=== PATIENT | female | born 1990 | race Caucasian/White ===

== ENCOUNTER → 2025-07-02 | Outpatient (CLI) | payer OTHER, SELFPAY ==
[2025-07-02 15:13] LABS: Hematocrit 40.0 % (37-47); Hemoglobin 13.9 g/dL (12.0-15.0); Mean Corp Hgb Conc 34.8 g/dL (32-36); Mean Corpuscular Volume 94.6 fL (81-99); Mean Platelet Vol. 11.7 fl (6.2-12.0); Platelet Count 221 K/mm3 (150-450); RBC Distribution Width CV 12.2 % (11.6-14.6); RBC Distribution Width SD 42.3 fl (35.1-43.9); Red Blood Count 4.23 M/mm3 (4.2-5.4); White Blood Count 7.1 K/mm3 (4.4-11.0)
[2025-07-02 15:40] LABS: AST(SGOT) 19 U/L (<=31); Alanine Aminotransfer ALT/SGPT 18 U/L (<=34); Albumin, Serum 4.4 g/dL (3.5-5.0); Alkaline Phosphatase 84 U/L (35-104); Anion Gap 13 (5-15); BUN 9 mg/dL (4-19); BUN/Creat Ratio 12.7 RATIO (10-20); Calcium,Total 9.5 mg/dL (7.6-11.0); Carbon Dioxide 24.0 mmol/L (21.0-32.0); Chloride 103 mmol/L (98-108); Cholesterol 201 mg/dL (<=200); Globulin 3.1 g/dL (2.2-4.2); Glucose 77 mg/dL (70-99); Low Density Lipoprotein Calc. 104 mg/dL; Potassium 4.4 mmol/L (3.3-5.1); Triglycerides 252 mg/dL; Very Low Density Lipoprotein 50 mg/dL (5-40); Vitamin D,25 Hydroxy 36.8 ng/mL (30-100); cholesterol:hdl ratio screen 4.30
== END | disposition home or self-care (01) ==
LOC: MFPLAB 12:07
PROVIDERS: Visit Provider Family Medicine
DX: Z00.00 Encounter for general adult medical examination without abnormal findings (principal); Z13.1 Encounter for screening for diabetes mellitus; Z13.220 Encounter for screening for lipoid disorders; E66.811 Obesity, class 1
CPT/HCPCS: 36415; 80053; 80061; 82306; 83036; 84443; 85027

== ENCOUNTER 2025-08-11 10:42 | Emergency (ER) | payer OTHER, SELFPAY ==
[2025-08-11 10:44] VITALS: BP 134/78; PULSE 64; RESP 18; TEMP 37.1; O2SAT 97; BMI 31.1
[2025-08-11 10:48] VITALS: BP 134/78; PULSE 78; RESP 16; TEMP 37.1; O2SAT 99
[2025-08-11 12:42] LABS: HIV Nonreactive (Nonreactive); Hepatitis B Surface Antigen Nonreactive (Nonreactive); Hepatitis C Antibody Nonreactive (Nonreactive)
== END 2025-08-11 11:30 | disposition home or self-care (01) ==
LOC: ED 11:27
PROVIDERS: Emergency Provider Emergency Medicine; Visit Provider Emergency Medicine
DX: S61.233A Puncture wound without foreign body of left middle finger without damage to nail, initial encounter (principal); W46.1XXA Contact with contaminated hypodermic needle, initial encounter; Z77.21 Contact with and (suspected) exposure to potentially hazardous body fluids
CPT/HCPCS: 86703; 86706; 86803; 87340; 99282

== ENCOUNTER → 2025-09-02 | Outpatient (CLI) | payer OTHER, SELFPAY ==
[2025-09-07 20:08] LABS: HPV APTIMA, High Risk Positive (Negative); HPV Genotype 16, Aptima Negative (Negative); HPV Genotype 18,45 Aptima Negative (Negative)
== END | disposition home or self-care (01) ==
LOC: LABSPEC 11:51
PROVIDERS: Visit Provider Nurse Practitioner Women's Health
DX: Z11.3 Encounter for screening for infections with a predominantly sexual mode of transmission (principal)
CPT/HCPCS: 87624; 88175; G0145

== ENCOUNTER → 2025-09-24 | Outpatient (CLI) | payer OTHER, SELFPAY ==
--- NOTE | 2025-09-24 14:45 | BI_ITS ---
EXAM: SCRN MAMM (CAD)W/KALINA BILAT DATE: 09/24/2025 CLINICAL HISTORY: F, Age 34 y/o , SCREENING FOR BREAST CANCER No family history. TECHNIQUE: Procedure Code: Modality: MG Procedure: SCRN MAMM (CAD)W/KALINA BILAT COMPARISON: Prior exam(s) dated prior outside examination dated February 21, 2024.. FINDINGS: TISSUE DENSITY: The breasts are almost entirely fatty. Bilateral Breast Mammographic Findings: No significant masses, calcifications or other abnormalities are identified. There is a new 4.2 mm well-defined nodule in the central slightly lateral aspect of the left breast. This may represent a small cyst. Sonographic correlation recommended. BI/SCRN MAMM (CAD)W/KALINA BILAT IMPRESSION: 4.2 mm well-defined nodule in the central slightly lateral aspect of the left b reast. Sonographic correlation recommended. OVERALL FINAL ASSESSMENT BI-RADS 0: INCOMPLETE - NEED ADDITIONAL IMAGING EVALUATION. RECOMMENDATION: Ultrasound Recommended Additional Recommendation none A letter with findings and recommendations will be mailed to the patient. Reading Location: [place] [id number]
--- OUTSIDE RECORDS SUMMARY | 2025-09-24 18:14 | XMS RPT_ITS | CCD ---
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 09/02/25 History extended release (Wellbutrin XL) fluoxetine 10 mg capsule (Prozac) 10 mg PO QDAY 09/02/25 09/02/25 H istory norethindrone (contraceptive) 0.35 0.35 mg PO QDAY #84 tabs 5 09/02/25 Rx mg tablet Is last menstrual period known: Yes Last Menstrual Period: 08/24/25 Post menopausal: No Patient : No : No PFSH Medical History (Updated 09/02/25 @ 10:18 by Britney Cotto PEER SPECIALIST, PEER SPECIALIST-C) H/O lipoma H/O human papillomavirus infection Surgical History (Updated 09/02/25 @ 09:27 by Britney Cotto PEER SPECIALIST, PEER SPECIALIST-C) H/O unilateral salpingectomy Family History (Updated 09/02/25 @ 09:11 by Rosie Brand) Grandmother Cancer Maternal- Pancreatic Aunt Cancer Lung- Maternal Social History (Updated 09/02/25 @ 09:12 by Rosie Brand) current occupational status: employed current occupation: [employer] Smoking Status: Never smoker alcohol intake: never substance use type: does not use seatbelt use: always do you feel safe at home: Yes additional social history: History 1 Elective abortions Hx Para 0 Spontaneous abortions Hx # Term Pregnancies Ectopic pregnancies 1 Hx # Pregnancies Multiple births # of living children 0 HPI Encounter for routine gynecological examination Details: ELANA WITT is a 34 year old who presents for new patient annual exam. Prior exams at [facility]. Has had colp 2023 for abnormal pap, +HPV and biopsy benign. Works [employer]. Same sexual partner since last exam at [facility]. Long history of PCOS. Prior DIRECTOR OF REHABILITATION said [facility] best option for her. Shaves face daily. Working hard on diet and recently lost 30#. Last PAP: 2023 History of abnormal PAP: 2019 colp TALISHA 1; 2023 colp benign bx. + HPV Last mammogram: 2024 History of abnormal mammogram: benign lipoma Colon cancer screening: age 44 Other preventative health care screenings: [facility] Female Reproductive History Last Menstrual Period: 08/24/25 Cycle Length: 21-35 Questions: metrorrhagia: No, sexually active: Yes, dyspareunia: No and PCB: No ROS Const Constitutional: Reports weight loss; Denies fatigue or weight gain Cardio Card: Denies chest pain Resp Resp: Denies cough or dyspnea on exertion GI GI: Denies abdominal pain, bloating, change in stool character, constipation or vomiting : Reports as per HPI; Denies difficulty voiding, pelvic pain, urinary frequency, urinary incontinence, urinary urgency, vaginal discharge or vaginal pruritus Exam Const General: cooperative, healthy appearing, no acute distress and well developed Orientation: alert, oriented to person and oriented to place HENGA Head: normal to inspection Neck Neck: normal visual inspection Thyroid: thyroid normal Lymphatic: no lymphadenopathy noted Chest Breast inspection: normal inspection of the breasts and normal inspection of the axillae Breast palpation: normal palpation of the breasts, normal palpation of the axillae and no axillary lymphadenopathy Resp Effort Inspection: normal respiratory effort GI Palpation: soft, no masses and nontender Rectal Exam: deferred External Female Exam: normal external appearance and normal appearance of the urethra Urethra: normal appearance of the urethra and normal palpation Speculum Exam - Vagina: normal appearance of the vagina and normal vaginal discharge Speculum Exam - Cervix: normal appearance of the cervix Bimanual Exam- Vagina Uterus: normal bimanual exam, uterine size normal, uterine shape normal and non-tender Bimanual Exam- Adnexa, other: normal adnexae, no masses, normal and non-tender Pelvic Support: normal Skin Hair: other (hirsuti (more content not included)... Normal [facility] 36on 08-20-2025 36 LM for return call. Letter mailed Normal [facility] Urgent Care Visit Reporton 1 Urgent Care Visit Report [facility] [address], [address] [place] [address] OFFICE VISIT Date of Service: 08/17/25 MR#: [id number] Acct: [id number] Name: ELANA WITT Rep #: [id number] : 1990 Provider: SUMAYA Castañeda Age/Sex: 34/F Location[place] [facility] Status: Signed Intake Vital Signs 08/11/25 10:44 08/17/25 06:32 Height 5 ft 4.5 in BP 108/78 Blood Pressure Location Lt brachial Position Sitting Respiration 14 Pulse 88 Pulse Source Auscultation Temp 98.4 F Temp Source Oral Pulse Oximetry (%) 98 Oxygen Delivery Method room air Intake Visit Reasons: FU/[facility] Allergies bee venom protein (honey bee) (bees) Allergy (Verified 08/11/25 10:43) Swelling coconut Allergy (Verified 08/11/25 10:43) rash oseltamivir (From Tamiflu) Allergy (Verified 08/11/25 10:43) rash acetaminophen (From Percocet) Adverse Reaction (Verified 08/11/25 10:43) Nausea doxycycline Adverse Reaction (Verified 08/11/25 10:43) Nausea oxycodone (From Percocet) Adverse Reaction (Verified 08/11/25 10:43) Nausea PFSH Social History Smoking Status: Never smoker HPI HPI Details: ELANA WITT, is a 34 F who presents to the office today for initial evaluation at the [facility] status post blood-borne pathogen needlestick injury occurring on 08/11/2025 while at work she so states. 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 On date of injury patient reported [facility] ED were treated and released the same day after initial blood-borne pathogen lab work was drawn and she has returned to work without restrictions ever since. She notes needlestick injury site is essentially healed without further complaints though is unaware of her initial lab results. She is unsure if source patient had blood- borne pathogen lab work drawn yet. She notes hepatitis B series completed several. Last Td in April 2025. She notes no other complaints at this time. ROS Const Constitutional: No other (As above) Exam Const General: cooperative, healthy appearing and no acute distress Orientation: alert and awake Resp Effort Inspection: normal respiratory effort and able to speak in complete sentences Cardio Rate: regular rate Pulses: radial pulses present Skin General: no rashes or lesions noted Other: LMF DP puncture wound site well-healed with sequela Neuro General: patient alert and patient awake Cognition: normal cognition Speech: speech normal Extrem General: normal to inspection Psych Appearance: grossly normal Mental Status: mental status grossly normal Mood: congruent mood Affect: normal affect Speech and Movement: speech and movement normal Attitude: cooperative Coding Level of Care Code Off vis,new,level 2 Diagnoses Needle stick injury of finger Exposure to body fluid Z77.21 Assessment and Plan Assessment and Plan (1) Needle stick injury of finger: Status: Acute (2) Exposure to body fluid: Status: Acute Plan: Continue working without restrictions as noted on today's [employer]. 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 Follow-up with the [facility] to be determined. Patient states acknowledging understanding all the above. This note was generated with [employer] dictation software. It may contain incorrect words, spelling, and punctuation that were not noted in checking the note before signing. 08/17/25 0642 Date Dax Turner Signature: Date (if applicable) CC: Normal [facility] Emergency Department Summary on 08-11-2025 Emergency Department Summary [facility] Department [address] [place] [address] Emergency Department Summary 08/11/25 MR#: [id number] Acct: [id number] Name: ELANA WITT Rep #: [id number] : 1990 34 From: Jonathan Lorenzana MD PCP: Status:PRE ER Location: ED HPI History of Present Illness Chief Complaint: Occup Expose Detail of Chief Complaint: Blood exposure, needlestick distal radial volar side L long finger Informant: patient Onset/Context/Timing Onset: Today and Hours 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 When she went to throw away the needle she stuck herself. There is obvious needle puncture jadon left long finger as previously described. She has no other symptoms or complaints. Prior similar symptoms: No Recent Illness/Hospitalizatio n: No PFSH PFSH Home Medications ???Medication ???Instructions ???Recorded ???Last Taken ???Type norethindrone (contraceptive) 0.35 0.35 mg PO QDAY #84 tabs 5 Unknown Rx mg tablet itjcsrmc-jovpzbpjm-cwv rocort 3.5 3 drp otic (ear) Q4H 10 days #10 m L 08/03/25 Unknown Rx mg-10,000 unit/mL-1 % ear drops,susp Allergy/AdvReac Type Severity Reaction Status Date / Time bee venom protein (honey Allergy Swelling Verified 08/11/25 10:43 bee) (bees) coconut Allergy rash Verified 08/11/25 10:43 oseltamivir (From Tamiflu) Allergy rash Verified 08/11/25 10:43 acetaminophen (From Percocet) AdvReac Nausea Verified 08/11/25 10:43 doxycycline AdvReac Nausea Verified 08/11/25 10:43 oxycodone (From Percocet) AdvReac Nausea Verified 08/11/25 10:43 Social History Smoking Status: Never smoker ROS ROS ED Constitutional Constitutional ED: Denies chills, fever(s) or subjective Integumentary Reports other Details: Puncture wound left long finger Neurologic Neurologic: Denies paresthesias or weakness Hematologic/Lymphatic Hematologic/Lymphatic: Denies easy bleeding or easy bruising EXAM Physical Exam Const Vital Signs: 08/11/25 10:44 08/11/25 10:48 Temperature 98.7 F Temperature Source Oral Pulse Rate 64 Respiratory Rate 18 Respiratory Effort Normal Respiratory Pattern Normal Blood Pressure 134/78 H Blood Pressure Mean 96 Pulse Ox 97 Oxygen Delivery Method Room Air Positive well nourished and well developed General Appearance ED: well developed HEENT HEENT Narrative: Grossly within normal limits Eyes PERRL and EOMs intact bilaterally Resp normal respiratory effort Cardio regular rhythm Rate: regular rate Extremity Negative for normal to inspection Extremity Narrative: Puncture wound distal radial volar surface left long finger. There is no subungual hematoma. There is no neurovasc Otomize. Neuro oriented x3 and CN's II-XII intact bilaterally Sensorium / Orientation: alert Psych mental status grossly normal and thought process normal Skin Skin Narrative: Wound consistent with needlestick left finger MDM MDM MDM Narrative Medical decision making narrative: Patient with dirty needle closure. Exposure protocol initiated. Will need to follow-up with [facility]. Discharge Plan Triage Chief Complaint: Occup Expose ED Provider: Jonathan Lorenzana Dx/Rx/DC Orders Clinical Impression: Needle stick injury of finger, Elevated blood pressure reading without diagnosis of hypertension, Exposure to body fluid Instructions: ED Body Fluid Exposure Not ..., ED Hypertension, To Be Confirmed Prescriptions: No Action norethindrone (contraceptive) 0.35 mg tablet 0.35 mg PO QDAY Qty: 84 1RF Rx Instructions: start day 1 of menstrual cycle emzmeilm-dfrrvqzmg-ZR 3.5-10,000-1 mg/mL-unit/mL-% drops,suspension 3 drp otic (ear) Q4H 10 Days Qty: 10 0RF Rx Instructions: apply to (cotton) wick; replace wick every 24 hours Referrals: [facility]] - 3-5 Days Activity Restrictions/Additiona l Instructions: Will need to contact source and obtain blood for testing Print Language: St Helenian Disposition Disposition: Home, Self Care What to do if you have Problems For any increased pain, shortness of breath, bleeding, nausea or vomiting, chest pain, or any unexpected problems, contact your Primary Care Provider. Call [facility] ([phone]) or report to the closest Emergency Room. Call 911 if necessary. (more content not included)... Normal [facility] HIVon 08-11-2025 HIV Non-Reactive Normal Nonreactive [facility] Comment on above: Order Comment: Reaso n for Exam: Dirty needlestick Result Comment: Non- Reactive Reactive Repeatedly reactive samples must be confirmed according to CDC recommended confirmatory algorithms. The subresults for either HIVAG or AHIV can be used as an aid in the selection of the confirmation algorithm for reactive samples. Send out specimens with Reactive results to [facility] for confirmation. Order the HIV antibody detection and differentiation: [id number] Performed By: #### L 3890.6202, L3890.6301, L3890.6006, L3890.6102 #### [facility] [address] [place], [place], [id number] Hepatitis B Surface Antibody on 08-11-2025 HEP B Surf Ab REAC Normal [facility] Comment on above: Result Comment: <8.5 mIU/mL: Non-Reactive 8.5<= x <11.5 mIU/mL: Indeterminate >=11.5 mIU/mL: Reactive Non Reactive: Inconsistent with immunity less than <10 mIU/mL Reactive: Consistent with immunity greater than or equal to 10 mIU/mL Performed By: #### L 3890.6202, L3890.6301, L3890.6006, L3890.6102 #### [facility] [address] [place], [address] Hepatitis C Antibodyon 08-11 Hepatitis C Ab Non-Reactive Normal Nonreactive [facility] Comment on above: Order Comment: Reaso n for Exam: Dirty needlestick Result Comment: Reac tive: Presumptive evidence of antibodies to HCV. Follow CDC recommendations for supplemental testing. Non-Reactive: Antibodies to HCV were not detected; does not exclude the possibility of exposure to HCV Reactive Results are presumptive evidence of antibodies to HCV. Follow CDC recommendations for supplemental testing. Order confirmation testing: HCV Quant by PCR testing - HCVPCR #[id number] Non Reactive: < 0.8 Equivocal: >/= 0.8 to < 1.0 Reactive: >/= 1.0 The CDC requires that a reactive/equivocal HCV antibody result be sent out for confirmation. HCV Quant by PCR testing. Performed By: #### L 3890.6202, L3890.6301, L3890.6006, L3890.6102 #### [facility] [address] [place], [place], [address] L3890.6102on 08-11-2025 HEP B Surf Ag Non-Reactive Normal Nonreactive [facility] Comment on above: Order Comment: Reaso n for Exam: Dirty needlestick Result Comment: Reac tive: Presumptive evidence of HBV. Repeatedly reactive samples must be confirmed using a neutralization test ([facility] HBsAg Confirmatory Test) Non-Reactive: HBsAg not detected; does not exclude the possibility of exposure to HBV Performed By: #### L 3890.6202, L3890.6301, L3890.6006, L3890.6102 #### [facility] [address] [place], [place], [id number] Laboratory - Microbiology an d Antimicrobial susceptibilityOrdered By: Jonathan Lorenzana on 08-11-2025 HBV surface Ag Ql (S) Non-Reactive Nonreactive [facility] Comment on above: Reactive: Presumptiv e evidence of HBV. Repeatedly reactive samples must be confirmed using a neutralization test ([employer] HBsAg Confirmatory Test)Non-Reactive: HBsAg not detected; does not exclude the possibility of exposure to HBV No Panel InformationOrdered By: Jonathan Lorenzana on 08-11-2025 HIV (1&2) Antibody Non-Reactive Nonreactive [facility] Comment on above: Non-ReactiveReactive Repeatedly reactive samples must be confirmed according to CDC recommended confirmatory algorithms. The subresults for either HIVAG or AHIV can be used as an aid in the selection of the confirmation algorithm for reactive samples.Send out specimens with Reactive results to [facility] for confirmation.Order the HIV antibody detection and differentiation: #[id number] Serum hepatitis B virus surf tee antibody detectionOrdered By: Jonathan Lorenzana on 08-11-2025 HBV surface Ab Ql (S) [facility] Comment on above: <8.5 mIU/mL: Non-Monika ctive8.5<= x <11.5 mIU/mL: Indeterminate>=11.5 mIU/mL: Reactive Non Reactive: Inconsistent with immunity less than <10 mIU/mL Reactive: Consistent with immunity greater than or equal to 10 mIU/mL Anion gap in Serum or Plasma Ordered By: Jordan Benavides on 07-02-2025 Anion gap [Moles/Vol] 13 mmol/L 5-15 [facility] BUN/creatinine ratioOrdered By: Jordan Benavides on 07-02-2025 Urea nitrogen/Creatinine [Mass ratio] 12.7 mg/mg 10-20 [facility] Bilirubin, totalOrdered By: Jordan Benavides on 07-02-2025 Bilirubin [Mass/Vol] 0.67 mg/dL 0.00-1.30 [facility] CBC-Complete Blood Cnt No Di ffon 07-02-2025 Erythrocyte distribution width (RBC) [Ratio] 12.2 % Normal 11.6-14.6 [facility] Comment on above: Order Comment: Order Date: 07/02/25 Order Info: [id number] - CBC Performed By: #### L 500.4100, L500.4050, L501.9985, L100.0500, L501.9520 #### [facility] [address] [place], [address] Hematocrit (Bld) [Volume fraction] 40.0 % Normal 37-47 [facility] Comment on above: Order Comment: Order Date: 07/02/25 Order Info: [id number] - CBC Performed By: #### L 500.4100, L500.4050, L501.9985, L100.0500, L501.9520 #### [facility] [address] [place], [address] Hemoglobin (Bld) [Mass/Vol] 13.9 g/dL Normal 12.0-15.0 [facility] Comment on above: Order Comment: Order Date: 07/02/25 Order Info: [id number] - CBC Performed By: #### L 500.4100, L500.4050, L501.9985, L100.0500, L501.9520 #### [facility] [address] [place], [address] MCH (RBC) [Entitic mass] 32.9 pg High 27.0-32.0 [facility] Comment on above: Order Comment: Order Date: 07/02/25 Order Info: [id number] - CBC Performed By: #### L 500.4100, L500.4050, L501.9985, L100.0500, L501.9520 #### [facility] [address] [place], [address] MCHC (RBC) [Mass/Vol] 34.8 g/dL Normal 32-36 [facility] Comment on above: Order Comment: Order Date: 07/02/25 Order Info: [id number] - CBC Performed By: #### L 500.4100, L500.4050, L501.9985, L100.0500, L501.9520 #### [facility] [address] [place], [address] MCV (RBC) [Entitic vol] 94.6 fL Normal 81-99 [facility] Comment on above: Order Comment: Order Date: 07/02/25 Order Info: [id number] - CBC Performed By: #### L 500.4100, L500.4050, L501.9985, L100.0500, L501.9520 #### [facility] [address] [place], [address] Platelet mean volume (Bld) [Entitic vol] 11.7 fL Normal 6.2-12.0 [facility] Comment on above: Order Comment: Order Date: 07/02/25 Order Info: [id number] - CBC Performed By: #### L 500.4100, L500.4050, L501.9985, L100.0500, L501.9520 #### [facility] [address] [place], [address] Platelets (Bld) [#/Vol] 221 10*3/uL Normal 150-450 [facility] Comment on above: Order Comment: Order Date: 07/02/25 Order Info: [id number] - CBC Performed By: #### L 500.4100, L500.4050, L501.9985, L100.0500, L501.9520 #### [facility] [address] [place], [address] RBC (Bld) [#/Vol] 4.23 10*6/uL Normal 4.2-5.4 [facility] Comment on above: Order Comment: Order Date: 07/02/25 Order Info: [id number] - CBC Performed By: #### L 500.4100, L500.4050, L501.9985, L100.0500, L501.9520 #### [facility] [address] [place], [address] RDW SD 42.3 fl Normal 35.1-43.9 [facility] Comment on above: Order Comment: Order Date: 07/02/25 Order Info: [id number] - CBC Performed By: #### L 500.4100, L500.4050, L501.9985, L100.0500, L501.9520 #### [facility] [address] [place], [address] WBC (Bld) [#/Vol] 7.1 10*3/uL Normal 4.4-11.0 [facility] Comment on above: Order Comment: Order Date: 07/02/25 Order Info: [id number] - CBC Performed By: #### L 500.4100, L500.4050, L501.9985, L100.0500, L501.9520 #### [facility] [address] [place], [address] Calculated very low density lipoprotein (VLDL) cholesterol measurementOrdered By: Jordan Benavides on 07-02-2025 Calculated very low density lipoprotein (VLDL) cholesterol measurement 50 mg/dL High 5-40 [facility] Carbon dioxide, total [Moles /volume] in Central venous bloodOrdered By: Jordan Benavides on 07-02-2025 CO2 [Moles/Vol] 24.0 mmol/L 21.0-32.0 [facility] Chloride assayOrdered By: Radha Benavides on 07-02-2025 Chloride [Moles/Vol] 103 mmol/L 98-108 [facility] Comprehensive Metabolic Prof ilon 07-02-2025 Albumin [Mass/Vol] 4.4 g/dL Normal 3.5-5.0 [facility] Comment on above: Order Comment: Order Date: 07/02/25 Order Info: [id number] - CMP Order Info: [id number] - LIPID Order Info: [id number] - TSH Performed By: #### L 500.4100, L500.4050, L501.9985, L100.0500, L501.9520 #### [facility] [address] [place], [address] Albumin/Globulin [Mass ratio] 1.4 {ratio} Normal 0.9-2.4 [facility] Comment on above: Order Comment: Order Date: 07/02/25 Order Info: [id number] - CMP Order Info: [id number] - LIPID Order Info: [id number] - TSH Performed By: #### L 500.4100, L500.4050, L501.9985, L100.0500, L501.9520 #### [facility] [address] [place], [address] ALK PHOS 84 U/L Normal 35-104 [facility] Comment on above: Order Comment: Order Date: 07/02/25 Order Info: [id number] - CMP Order Info: [id number] - LIPID Order Info: [id number] - TSH Performed By: #### L 500.4100, L500.4050, L501.9985, L100.0500, L501.9520 #### [facility] [address] [place], [address] ALT [Catalytic activity/Vol] 18 U/L Normal <=34 [facility] Comment on above: Order Comment: Order Date: 07/02/25 Order Info: [id number] - CMP Order Info: - LIPID Order Info: [id number] - TSH Performed By: #### L 500.4100, L500.4050, L501.9985, L100.0500, L501.9520 #### [facility] [address] [place], [address] AST [Catalytic activity/Vol] 19 U/L Normal <=31 [facility] Comment on above: Order Comment: Order Date: 07/02/25 Order Info: [id number] - CMP Order Info: - LIPID Order Info: [id number] - TSH Performed By: #### L 500.4100, L500.4050, L501.9985, L100.0500, L501.9520 #### [facility] [address] [place], [address] Bilirubin [Mass/Vol] 0.67 mg/dL Normal 0.00-1.30 [facility] Comment on above: Order Comment: Order Date: 07/02/25 Order Info: [id number] - CMP Order Info: - LIPID Order Info: [id number] - TSH Performed By: #### L 500.4100, L500.4050, L501.9985, L100.0500, L501.9520 #### [facility] [facility] [address] [place], [address] BUN/CRE 12.7 RATIO Normal 10-20 [facility] Comment on above: Order Comment: Order Date: 07/02/25 Order Info: 07 - CMP Order Info: - LIPID Order Info: [id number] - TSH Performed By: #### L 500.4100, L500.4050, L501.9985, L100.0500, L501.9520 #### [facility] [address] [place], [address] Calcium [Mass/Vol] 9.5 mg/dL Normal 7.6-11.0 [facility] Comment on above: Order Comment: Order Date: 07/02/25 Order Info: [id number] - CMP Order Info: - LIPID Order Info: [id number] - TSH Performed By: #### L 500.4100, L500.4050, L501.9985, L100.0500, L501.9520 #### [facility] [address] [place], [address] Chloride [Moles/Vol] 103 mmol/L Normal 98-108 [facility] Comment on above: Order Comment: Order Date: 07/02/25 Order Info: [id number] - CMP Order Info: - LIPID Order Info: [id number] - TSH Performed By: #### L 500.4100, L500.4050, L501.9985, L100.0500, L501.9520 #### [facility] [address] [place], [address] CO2 [Moles/Vol] 24.0 mmol/L Normal 21.0-32.0 [facility] Comment on above: Order Comment: Order Date: 07/02/25 Order Info: [id number] - CMP Order Info: - LIPID Order Info: [id number] - TSH Performed By: #### L 500.4100, L500.4050, L501.9985, L100.0500, L501.9520 #### [facility] [address] [place], [address] Creatinine [Mass/Vol] 0.73 mg/dL Normal 0.70-1.20 [facility] Comment on above: Order Comment: Order Date: 07/02/25 Order Info: [id number] - CMP Order Info: [id number] - LIPID Order Info: [id number] - TSH Performed By: #### L 500.4100, L500.4050, L501.9985, L100.0500, L501.9520 #### [facility] [address] [place], [place], [address] GAP 13 Normal 5-15 [facility] Comment on above: Order Comment: Order Date: 07/02/25 Order Info: 785- - CMP Order Info: [id number] - LIPID Order Info: 3 - TSH Performed By: #### L 500.4100, L500.4050, L501.9985, L100.0500, L501.9520 #### [facility] [address] [place], [place], [address] GFR/1.73 sq M.predicted among non-blacks MDRD (S/P/Bld) [Vol rate/Area] 109 mL/min/{1.73_m2} Normal >60 [facility] Comment on above: Order Comment: Order Date: 07/02/25 Order Info: [id number] - CMP Order Info: - LIPID Order Info: [id number] - TSH Result Comment: mL/m in/1.73m2 CKD-EPI Creatinine Equation (2020) Performed By: #### L 500.4100, L500.4050, L501.9985, L100.0500, L501.9520 #### [facility] [address] [place], [address] Globulin (S) [Mass/Vol] 3.1 g/dL Normal 2.2-4.2 [facility] Comment on above: Order Comment: Order Date: 07/02/25 Order Info: [id number] - CMP Order Info: [id number] - LIPID Order Info: [id number] - TSH Performed By: #### L 500.4100, L500.4050, L501.9985, L100.0500, L501.9520 #### [facility] [address] [place], [place], [address] Glucose [Mass/Vol] 77 mg/dL Normal 70-99 [facility] Comment on above: Order Comment: Order Date: 07/02/25 Order Info: 785- - CMP Order Info: - LIPID Order Info: [id number] - TSH Performed By: #### L 500.4100, L500.4050, L501.9985, L100.0500, L501.9520 #### [facility] [address] [place], [address] Potassium [Moles/Vol] 4.4 mmol/L Normal 3.3-5.1 [facility] Comment on above: Order Comment: Order Date: 07/02/25 Order Info: [id number] - CMP Order Info: [id number] - LIPID Order Info: 3 - TSH Performed By: #### L 500.4100, L500.4050, L501.9985, L100.0500, L501.9520 #### [facility] [address] [place], [address] Sodium [Moles/Vol] 139 mmol/L Normal 133-145 [facility] Comment on above: Order Comment: Order Date: 07/02/25 Order Info: [id number] - CMP Order Info: [id number] - LIPID Order Info: [id number] - TSH Performed By: #### L 500.4100, L500.4050, L501.9985, L100.0500, L501.9520 #### [facility] [address] [place], [address] T PROT 7.4 g/dL Normal 5.9-8.4 [facility] Comment on above: Order Comment: Order Date: 07/02/25 Order Info: [id number] - CMP Order Info: [id number] - LIPID Order Info: [id number] - TSH Performed By: #### L 500.4100, L500.4050, L501.9985, L100.0500, L501.9520 #### [facility] [address] [place], [address] Urea nitrogen [Mass/Vol] 9 mg/dL Normal 4-19 [facility] Comment on above: Order Comment: Order Date: 07/02/25 Order Info: [id number] - CMP Order Info: [id number] - LIPID Order Info: [id number] - TSH Performed By: #### L 500.4100, L500.4050, L501.9985, L100.0500, L501.9520 #### [facility] [address] [place], [place], [address] Erythrocyte distribution wid th ratioOrdered By: Jordan Benavides on 07-02-2025 Erythrocyte distribution width (RBC) [Ratio] 12.2 % 11.6-14.6 [facility] Erythrocyte distribution wid th standard deviationOrdered By: Jordan Benavides on 07-02-2025 Erythrocyte distribution width (RBC) [Ratio] 42.3 fl 35.1-43.9 [facility] Glomerular filtration rate ( GFR) estimation/1.73 sq m using serum, plasma, or whole bOrdered By: Jordan Benavides on 07-02-2025 GFR/1.73 sq M.predicted among non-blacks MDRD (S/P/Bld) [Vol rate/Area] 109 mL/min/{1.73_m2} >60 [facility] Comment on above: mL/min/1.73m2 CKD-EP I Creatinine Equation (2020) Hematocrit Auto (Bld) [Volum e fraction]Ordered By: Jordan Benavides on 07-02-2025 Hematocrit (Bld) [Volume fraction] 40.0 % 37-47 [facility] Hemoglobin A1con 07-02-2025 HbA1c (Bld) [Mass fraction] 5.5 % Normal <=5.6 [facility] Comment on above: Order Comment: Order Date: 07/02/25Order Info: [id number] - A1C Result Comment: Norm al < 5.7 % Prediabetic 5.7 - 6.4 % Diabetic >or= 6.5 % Please note range changes. Performed By: #### L 500.4100, L500.4050, L501.9985, L100.0500, L501.9520 ####[facility] [address] [place], [place], [id number] Hemoglobin A1c percentageOrd ered By: Jordan Benavides on 07-02-2025 HbA1c (Bld) [Mass fraction] 5.5 % <5.7 [facility] Comment on above: Normal < 5.7 % Predi abetic 5.7 - 6.4 % Diabetic >or= 6.5 % Please note range changes. Hemoglobin measurementOrdere d By: Jordan Benavides on 07-02-2025 Hemoglobin (Bld) [Mass/Vol] 13.9 g/dL 12.0-15.0 [facility] LDL calc ser/plasOrdered By: Jordan Benavides on 07-02-2025 Cholesterol in LDL [Mass/Vol] 104 mg/dL [facility] Comment on above: Qsaorbzrif=077-472 m g/dL & Higher Leoz=605 mg/dL or greaterFriedwald Equation for LDL-C Laboratory - Chemistry and C hemistry - challengeOrdered By: Jordan Benavides on 07-02-2025 AST [Catalytic activity/Vol] 19 U/L <32 [facility] Lipid Profileon 07-02-2025 CHOL:HDL 4.30 Normal [facility] Comment on above: Order Comment: Order Date: 07/02/25Order Info: [id number] - CMPOrder Info: [id number] - LIPIDOrder Info: [id number] - TSH Performed By: #### L 500.4100, L500.4050, L501.9985, L100.0500, L501.9520 ####[facility] [address] [place], [place], [phone] Cholesterol [Mass/Vol] 201 mg/dL Normal <=200 [facility] Comment on above: Order Comment: Order Date: 07/02/25Order Info: [id number] - CMPOrder Info: [id number] - LIPIDOrder Info: [id number] - TSH Result Comment: Chol esterol level, Desirable <200 mg/dL Borderline high cholesterol 200-239 mg/dL High cholesterol >=240 mg/dL Recommendations of the NCEP Adult Treatment Panel for the following risk-cutoff thresholds for the [place] population. Performed By: #### L 500.4100, L500.4050, L501.9985, L100.0500, L501.9520 ####[facility] [address] [place], [address] Cholesterol in HDL [Mass/Vol] 47 mg/dL Normal [facility] Comment on above: Order Comment: Order Date: 07/02/25Order Info: [id number] - CMPOrder Info: [id number] - LIPIDOrder Info: 3 - TSH Result Comment: Kayla onal Cholesterol Education Program (NCEP) guidelines: <40 mg/dL: Low HDL-cholesterol (major risk factor for CHD) >= 60 mg/dL: High HDL-cholesterol (negative risk factor for CHD) HDL-cholesterol is affected by a number of factors, e.g. smoking, exercise, hormones, sex and age. Performed By: #### L 500.4100, L500.4050, L501.9985, L100.0500, L501.9520 ####[facility] [address] [place], [address] Cholesterol in LDL [Mass/Vol] 104 mg/dL Normal [facility] Comment on above: Order Comment: Order Date: 07/02/25Order Info: [id number] - CMPOrder Info: [id number] - LIPIDOrder Info: [id number] - TSH Result Comment: Bord uvlctr=158-100 mg/dL Higher Hjvc=336 mg/dL or greater Friedwald Equation for LDL-C Performed By: #### L 500.4100, L500.4050, L501.9985, L100.0500, L501.9520 ####[facility] [address] [place], [address] Cholesterol in VLDL [Mass/Vol] 50 mg/dL High 5-40 [facility] Comment on above: Order Comment: Order Date: 07/02/25Order Info: [id number]- - CMPOrder Info: [id number] - LIPIDOrder Info: 63 - TSH Performed By: #### L 500.4100, L500.4050, L501.9985, L100.0500, L501.9520 ####[facility] [address] [place], [place], [address] Triglyceride [Mass/Vol] 252 mg/dL High [facility] Comment on above: Order Comment: Order Date: 07/02/25Order Info: [id number] - CMPOrder Info: [id number] - LIPIDOrder Info: [id number] - TSH Result Comment: The drugs N-Acetylcysteine and Metamizole may falsely depress this assay. Normal range: <150 mg/dL Borderline High: 150-199 mg/dL High: 200-499 mg/dL Very High: >500 mg/dL Performed By: #### L 500.4100, L500.4050, L501.9985, L100.0500, L501.9520 ####[facility] [address] [place], [place], [id number] MCV (mean corpuscular volume ) determinationOrdered By: Jordan Benavides on 07-02-2025 MCV (RBC) [Entitic vol] 94.6 fL 81-99 [facility] Mean corpuscular hemoglobin (MCH) determinationOrdered By: Jordan Benavides on 07-02-2025 MCH (RBC) [Entitic mass] 32.9 pg High 27.0-32.0 [facility] Mean corpuscular hemoglobin concentration (MCHC) determinationOrdered By: Jordan Benavides on 07-02-2025 MCHC (RBC) [Mass/Vol] 34.8 g/dL 32-36 [facility] Mean platelet volume determi nationOrdered By: Jordan Benavides on 07-02-2025 Platelet mean volume (Bld) [Entitic vol] 11.7 fL 6.2-12.0 [facility] Platelet countOrdered By: Radha Benavides on 07-02-2025 Platelets (Bld) [#/Vol] 221 10*3/uL 150-450 [facility] Potassium measurement (mass/ volume)Ordered By: Jordan Benavides on 07-02-2025 Potassium (Unsp spec) [Mass/Vol] 4.4 mmol/L 3.3-5.1 [facility] RBC Auto (Bld) [#/Vol]Ordere d By: Jordan Benavides on 07-02-2025 RBC (Bld) [#/Vol] 4.23 10*6/uL 4.2-5.4 [facility] Screening total cholesterol/ high density lipoprotein (HDL) cholesterol ratioOrdered By: Jordan Benavides on 07-02-2025 Cholesterol.total/Cristal sterol in HDL [Mass ratio] 4.30 {ratio} [facility] Serum creatinine measurement (mass/volume)Ordered By: Jordan Benavides on 07-02-2025 Creatinine [Mass/Vol] 0.73 mg/dL 0.70-1.20 [facility] Serum globulin measurementOr dered By: Jordan Benavides on 07-02-2025 Globulin (S) [Mass/Vol] 3.1 g/dL 2.2-4.2 [facility] Serum glucose measurement (m ass/volume)Ordered By: Jordan Benavides on 07-02-2025 Glucose [Mass/Vol] 77 mg/dL 70-99 [facility] Serum or plasma alanine kaiser otransferase (ALT) measurementOrdered By: Jordan Benavides on 07-02-2025 ALT [Catalytic activity/Vol] 18 U/L <35 [facility] Serum or plasma albumin hi urement (mass/volume)Ordered By: Jordan Benavides on 07-02-2025 Albumin [Mass/Vol] 4.4 g/dL 3.5-5.0 [facility] Serum or plasma albumin/glob ulin mass ratioOrdered By: Jordan Benavides on 07-02-2025 Albumin/Globulin [Mass ratio] 1.4 {ratio} 0.9-2.4 [facility] Serum or plasma alkaline latonia sphatase measurementOrdered By: Jordan Benavides on 07-02-2025 ALP [Catalytic activity/Vol] 84 U/L 35-104 [facility] Serum or plasma calcium hi urement (mass/volume)Ordered By: Jordan Benavides on 07-02-2025 Calcium [Mass/Vol] 9.5 mg/dL 7.6-11.0 [facility] Serum or plasma cholesterol in HDL measurement (mass/volume)Ordered By: Jordan Benavides on 07-02-2025 Cholesterol in HDL [Mass/Vol] 47 mg/dL >40 [facility] Comment on above: National Cholesterol Education Program (NCEP) guidelines:<40 mg/dL: Low HDL-cholesterol (major risk factor for CHD)>= 60 mg/dL: High HDL-cholesterol (negative risk factor for CHD)HDL-cholesterol is affected by a number of factors, e.g. smoking, exercise, hormones, sex and age. Serum or plasma cholesterol measurement (mass/volume)Ordered By: Jordan Benavides on 07-02-2025 Cholesterol [Mass/Vol] 201 mg/dL <201 [facility] Comment on above: Cholesterol level, D esirable <200 mg/dLBorderline high cholesterol 200-239 mg/dLHigh cholesterol >=240 mg/dLRecommendations of the NCEP Adult Treatment Panel for the following risk-cutoff thresholds for the [place] population. Serum or plasma urea nitroge n measurement (mass/volume)Ordered By: Jordan Benavides on 07-02-2025 Urea nitrogen [Mass/Vol] 9 mg/dL 4-19 [facility] Sodium levelOrdered By: Alina Benavides on 07-02-2025 Sodium [Moles/Vol] 139 mmol/L 133-145 [facility] TSH DL <= 0.005 mIU/L QnOrde red By: Jordan Benavides on 07-02-2025 TSH Qn 1.010 uIU/mL 0.300-4.200 [facility] Thyroid Stim Hormone (TSH)on 07-02-2025 TSH 1.010 uIU/mL Normal 0.300-4.200 [facility] Comment on above: Order Comment: Order Date: 07/02/25Order Info: [id number] - CMPOrder Info: [id number] - LIPIDOrder Info: [id number] - TSH Performed By: #### L 500.4100, L500.4050, L501.9985, L100.0500, L501.9520 ####[facility] [address] [place], [place], [phone] Total proteinOrdered By: Daja Benavides on 07-02-2025 Protein [Mass/Vol] 7.4 g/dL 5.9-8.4 [facility] Triglycerides measurementOrd ered By: Jordan Benavides on 07-02-2025 Triglyceride [Mass/Vol] 252 mg/dL High <199 [facility] Comment on above: The drugs N-Acetylcy steine and Metamizole may falsely depress this assay. Normal range: <150 mg/dLBorderline High: 150-199 mg/dLHigh: 200-499 mg/dLVery High: >500 mg/dL Vitamin D,25 Hydroxyon 07-02 Vitamin D 25-OH 36.8 ng/mL Normal 30-100 [facility] Comment on above: Order Comment: Order Date: 07/02/25 Order Info: [id number] - CMP Order Info: [id number] - LIPID Order Info: [id number] - TSH Result Comment: Zaria min D Status Deficiency: <20 ng/mL (50nmol/L) Insufficiency: 20-30 ng/mL (50-75 nmol/L) Sufficiency: 30-100 ng/mL (75-250 nmol/L) Toxicity: >100 ng/mL (>250 nmol/L) Performed By: #### L 506.1001 #### [facility] [address] [place], [address] White blood cell (WBC) count Ordered By: Jordan Benavides on 07-02-2025 WBC (Bld) [#/Vol] 7.1 10*3/uL 4.4-11.0 [facility] 36on 06-12-2025 36 LM for return call. Normal [facility] 36on 05-11-2025 36 LM for return call. Please assist with scheduling her annual exam. Thank you Normal [facility] 36 ----- Message from Camelia Edwards sent at 04/03/2025 1:51 PM EDT ----- Regarding: appt Annual scheduled? Send letter Normal [facility] Progress Noteon 04-26-2025 Progress Note PPD read 0mm. Normal [facility] Progress Noteon 04-24-2025 Progress Note #2 TB skin test give n to left inner forearm. Normal [facility] Mumps Antibody,IgGon 025 MUMPS Ab, IgG 10.5 AU/mL Low Immune >10.9 [facility] Comment on above: Result Comment: A se cond sample should be collected and tested no less than 2-4 weeks. Negative <9.0 Equivocal 9.0 - 10.9 Positive >10.9 A positive result generally indicates past exposure to Mumps virus or previous vaccination. Performed By: #### L 3400.1750, L3100.3400, L509.4006 ####[facility] [address] [place], [address] [facility] EMP Rubeola Titeron 07-0 RUBEOLA Ab, IgG 84.6 AU/mL High Immune >16.4 [facility] Comment on above: Result Comment: Nega tive <13.5 Equivocal 13.5 - 16.4 Positive >16.4 Presence of antibodies to Rubeola is presumptive evidence of immunity except when acute infection is suspected. Performed at: [address] [id number] Lard Renderer: Ricardo Pereira PhD, Phone: [phone] Performed By: #### L 3400.1750, L3100.3400, L509.4006 ####[facility] [address] [place], [address] L509.4006on 04-22-2025 Rubella IgG REAC Normal Nonreactive [facility] Comment on above: Result Comment: Anti body Result: Interpretation Non-Reactive: Non-Immune Reactive: Immune The following results were obtained with the [employer] Rubella IgG assay. Results from assays of other manufacturers cannot be used interchangeably. Performed By: #### L 3400.1750, L3100.3400, L509.4006 ####[facility] [address] [place], [address] Serum measles virus IgG anti body assay (units/volume)Ordered By: [employer] [facility] on 04-22-2025 MeV IgG Qn (S) 84.6 AU/mL High Immune >16.4 [facility] Comment on above: Negative <13.5 Equiv ocal 13.5 - 16.4 Positive >16.4Presence of antibodies to Rubeola is presumptive evidenceof immunity except when acute infection is suspected.Performed at: - [facility] [address] [place], [place] [id number] Director: Ricardo Pereira PhD, Phone: [phone] Serum mumps virus IgG antibo dy assay (units/volume)Ordered By: [employer] [facility] on 04-22-2025 MuV IgG Qn (S) 10.5 AU/mL Low Immune >10.9 [facility] Comment on above: A second sample shou ld be collected and tested no less than2-4 weeks. Negative <9.0 Equivocal 9.0 - 10.9 Positive >10.9A positive result generally indicates past exposure toMumps virus or previous vaccination. Progress Noteon 04-14-2025 Progress Note TB test read is negative on right forearm. 0 mm induration. No skin reaction noted. Form was filled out and returned to patient. Justine Sal APRN - [employer] [facility] 3604-03-2025 36 LM for return call. Please assist with scheduling her annual exam. Thanks [facility] 36 ----- Message from Camelia Edwards sent at 02/11/2025 11:53 AM EDT ----- Regarding: annual Annual/pap 02/25 [facility] 2903-29-2025 29 Addended by: RAMANDEEP DOLAN on: 03/29/2025 04:48 PM Modules accepted: Orders [facility] 3603-28-2025 36 Pt is requesting annual lab work be order before her visit in june of this year. [facility] 37on 01-28-2025 37 Start: Clobetasol Ointment- Apply to affected areas on the right hand twice daily x 2 weeks. Stop using when clear. Repeat as needed for flares. Do not use on face, armpits, groin. Sunscreen- Keep the area protected from the sun. Appropriate skin care is critical. Gentle non-soap cleansers should be utilized. The liberal use of bland emollients is essential. These products should be fragrance and dye free. Use gentle, fragrance free, dye free soaps, cleanser (Aquaphor, Aveeno, CeraVe, Cetaphil, Eucerin, La Yannick Posay, Neutrogena, Vaseline, Vanicream), and laundry products (usually found in a white bottle or box). Dry skin care and importance of liberal emollient use reviewed. Sunscreen Use & Sun Safety It is recommended a water-resistant, broad-spectrum sunscreen with SPF of at least 15 to 30. Apply sunscreen to all exposed skin 30 minutes before sun exposure, and then every 2 hours. Apply sooner if sweating or coming out of pool/water. Using the proper amount of sunscreen in important. An adult should use about 1-1.5 oz of sunscreen to the entire body, about 2-3 tablespoons per application. Use a lip balm with SPF 30 or higher to protect the lips from sun damage. Limit time in the sun, especially between 10 AM and 2 PM when the sun?s rays are the strongest. Clothing labeled with a UPF (ultra-lisbeth protection factor) rating indicates that it?s protective against UV rays. Also, wear wide-brimmed hats, and sunglasses for sun protection. The nature of sun-induced photo-aging and skin cancers was discussed. Sun avoidance, protective clothing, and the use of Broad spectrum (UVA and UVB) minimum 30-SPF sunscreens is advised. Apply sunscreen 30 minutes prior to sun exposure, and reapply every 2 hours and as needed after swimming or sweating. Observe closely for skin damage/changes, and call if such occurs. Normal [facility] Office Visiton 01-28-2025 Follow-up visit [id number] Catrachita Witt 1990 F Date Provider Department Center 01/28/2025 [id number]-OZREZINA KIRBY [facility] None Family History Problem Relation Age of Onset Diabetes Mother Heart disease Mother Mental illness Mother High Blood Pressure Father Alcohol abuse Father Diabetes Father No Known Problems Sister No Known Problems Brother Cancer Maternal Grandmother Comments: gallbladder Other Maternal Grandfather Comments: Dementia Other Paternal Grandmother Comments: glaucoma, URI Depression Paternal Grandmother Diabetes Paternal Grandmother Other Paternal Grandfather Comments: COPD Diabetes Father's Sister No Known Problems Other Lung cancer Mother's Sister Comments: smoker Family Status - Relation Status Age at Mother Alive Father Alive Sister Alive Brother Alive Maternal Grandmother Maternal Grandfather Alive Paternal Grandmother Alive Paternal Grandfather Father's Sister Alive Other Alive Other Mother's Sister Alive Level of Service:70527 LA OFFICE/OUTPATIENT ESTABLISHED LOW MDM 20 MIN Reason for Visit and Comments: Rash [609322] - 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 female who presents for evaluation of rash. Patient has seen a handcrew foreman in the past. C/o-rash located on the Right Hand x Dec 02. Rash started on after drinking an energy drink with coconut in it- has an allergy. The itching has improved. Admits blistering in the area. Patient states the rash was itchy in the past. Denies itching, burning, pain. Denies spreading. Denies new personal products. Denies new medications/supplement s or changes in medications/supplement s size, shape, color. Denies recent illness/fever. Denies anyone in the same house with similar rash. Denies daily allergy medication. Denies personal or family hx of eczema or psoriasis. Admits allergies and sensitive skin. Admits previous treatment with Betamethasone, Triamcinolone Ointment and Keflex. She took a medrol dose pack for Sciatica, unsure if this helped. Currently using Hempz wash and lotion and All for sensitive skin laundry detergent. Are you , trying to become or ? No History of pacemaker/ defibrillator? No History of HIV/ Hep C? No Allergies to Lidocaine, Epinephrine, Latex or Adhesive? No REVIEW OF SYSTEMS: General/Constitutional Feels well; denies h/o fatigue, weight change, night sweats, fevers or chills. Lymphatic Denies swollen lymph nodes. Dermatologic As per HPI; denies new rashes, itching, hair loss, skin or nail changes. There were no vitals filed for this visit. GENERAL APPEARANCE:?Alert & oriented x3, pleasant. Well developed, well nourished. PSYCH: appropriate mood and affect 1. Post inflammatory hypopigmentation Right Hand - Posterior []Chronic [x]Acute []Stable [x]Flaring/Exacerbatio n Reviewed patient photos. Photos consistent with suspected contact dermatitis. Now resolved. Education provided that the light areas at sites of previous involvement are known as post inflammatory hypopigmentation. The discoloration will continue to resolve over time; however, advised that it can take many months and if patient continues to develop new areas of involvement, the discoloration may persist. Start: Clobetasol Ointment- Apply to affected areas on the right hand twice daily x 2 weeks. Stop using when clear. Repeat as needed for flares. Do not use on face, armpits, groin. Related Medications clobetasol (Temovate) 0.05 % ointment Apply to affected areas on the right hand BID x 2 weeks. Stop using when clear. Repeat as needed for flares. Do not use on face, armpits, groin. 2. Rash Related Procedures [facility] Dermatology Orders Placed This Encounter Medications clobetasol (Temovate) 0.05 % ointment Sig: Apply to affected areas on the right hand BID x 2 weeks. Stop using when clear. Repeat as needed for flares. Do not use on face, armpits, groin. Dispense: 60 g Refill: 0 Follow up if symptoms worsen or fail to improve. Zina Echols PA-C 01/28/25 1:11 PM REFERRING MD: [id number] / [place] [address] [facility] Office Visiton 01-02-2025 Follow-up visit [id number] Catrachita Witt 1990 F Date Provider Department Center 01/02/2025 MARÍA BARLOW [facility] Family History Problem Relation Age of Onset Diabetes Mother Heart disease Mother Mental illness Mother High Blood Pressure Father Alcohol abuse Father Diabetes Father No Known Problems Sister No Known Problems Brother Cancer Maternal Grandmother Comments: gallbladder Other Maternal Grandfather Comments: Dementia Other Paternal Grandmother Comments: glaucoma, URI Depression Paternal Grandmother Diabetes Paternal Grandmother Other Paternal Grandfather Comments: COPD Diabetes Father's Sister No Known Problems Other Lung cancer Mother's Sister Comments: smoker Family Status - Relation Status Age at Mother Alive Father Alive Sister Alive Brother Alive Maternal Grandmother Maternal Grandfather Alive Paternal Grandmother Alive Paternal Grandfather Father's Sister Alive Other Alive Other Mother's Sister Alive Level of Service:34247 LA OFFICE/OUTPATIENT ESTABLISHED MOD MDM 30 MIN Reason for Visit and Comments: Sciatica [346] Rash [964732] - Right hand, has used doxy, keflex, and kenalog cream. Normal [facility] Progress Noteon 01-02-2025 Progress Note . [facility] [address] [facility] [address] Dept: [phone] Dept Visit type: Established patient Reason for Visit: Sciatica and Rash (Right hand, has used doxy, keflex, and kenalog cream.) @PLANBEGINPHANTOM@ Assessment and Plan 1. Current mild episode of major depressive 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 (HCC) - buPROPion XL (Wellbutrin XL) 300 MG 24 hr tablet; Take 1 tablet (300 mg) by mouth every morning. Do not crush, chew, or split., Starting Sun01/02/2025, Until Sun07/01/2025, Normal - FLUoxetine (PROzac) 10 MG capsule; Take 1 capsule (10 mg) by mouth daily., Starting Sun01/02/2025, Until Sun07/01/2025, Normal 2. LELE (generalized anxiety disorder) - FLUoxetine (PROzac) 10 MG capsule; Take 1 capsule (10 mg) by mouth daily., Starting Sun01/02/2025, Until Sun07/01/2025, Normal 3. Rash - [facility] - betamethasone dipropionate (Diprosone) 0.05 % lotion; Apply topically 2 times daily as needed for irritation or rash., Starting Sun01/02/2025, Until Sun05/02/2025 at 2359, Normal 4. Sciatica, unspecified laterality - methylPREDNISolone (Medrol Dospak) 4 MG tablets; Take as directed on package., Normal No follow-ups on file. Subjective Anxiety Presents for follow-up visit. Patient reports no chest pain, confusion, decreased concentration, depressed mood, dizziness, irritability, malaise, nervous/anxious behavior, obsessions, palpitations, restlessness, shortness of breath or suicidal ideas. The quality of sleep is good. Nighttime awakenings: none. Review of Systems Constitutional: Negative for activity change, appetite change, chills, diaphoresis, fatigue, fever, irritability and unexpected weight change. HENT: Negative for sore throat and trouble swallowing. Respiratory: Negative for apnea, cough, choking, chest tightness, shortness of breath, wheezing and stridor. Cardiovascular: Negative for chest pain, palpitations and leg swelling. Gastrointestinal: Negative for abdominal pain, constipation and diarrhea. Endocrine: Negative for cold intolerance, heat intolerance, polydipsia, polyphagia and polyuria. Genitourinary: Negative for frequency and urgency. Musculoskeletal: Positive for gait problem. Negative for neck pain and neck stiffness. States that she has been battling sciatica of her right leg for about 2 weeks Pain starts from lower back and radiates down to toes, pins and needles sensation No know trigger but does do heavy lifting at her job No cauda equina Supportive treatment with modest help Skin: Positive for rash. Negative for wound. Rash on dorsum of right hand S/p doxy (incomplete due to GI symptoms) and currently finishing keflex Topical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 Ordering Physician GABRIEL ROBLES Accession Number [id number] CPT4 Codes 27027 () Reason For Exam cough Report Clinical History: cough Comparison: None Technique: PA and lateral radiographs were obtained of the chest. Findings: The heart size and mediastinal contours are normal. Pulmonary vascularity is normal and there is no pneumothorax. The lungs are clear with no acute infiltrate or effusion. No displaced rib fractures seen. Impression: No acute consolidative process. Report Dictated on --- Final --- Dictating Physician: MD VERGARA JAMES Signed Date and Time: 12/08/2019 7:27 am Signed by: MD VERGARA JAMES Transcribed Date and Time: 12/08/2019 7:28 [facility] Work Phone: [facility], [facility] Incoming Radiology Results From [facility] - 12/08/2019 7:29 AM EST Patient Name: ELANA WITT ---Diagnostic Radiology--- Exam Date/Time 12/08/2019 07:16:39 EST Exam CR Chest PA/LAT Ordering Physician GABRIEL ROBLES Accession Number [id number] CPT4 Codes 68168 () Reason For Exam cough Report Clinical History: cough Comparison: None Technique: PA and lateral radiographs were obtained of the chest. Findings: The heart size and mediastinal contours are normal. Pulmonary vascularity is normal and there is no pneumothorax. The lungs are clear with no acute infiltrate or effusion. No displaced rib fractures seen. Impression: No acute consolidative process. Report Dictated on --- Final --- Dictating Physician: MD VERGARA JAMES Signed Date and Time: 12/08/2019 7:27 am Signed by: MD VERGARA JAMES Transcribed Date and Time: 12/08/2019 7:28 [facility] Work Phone: US Transvaginalon 02-04-2018 US Transvaginal Patient Name: ELANA GAMING Ultrasound Exam Date/Time 02/04/2018 17:19:27 EDT Exam US Transvaginal Ordering Physician HALEY DUPREE KRISTINA Accession Number [id number] CPT4 Codes 73659 () Reason For Exam Ectopic , unspecified location, unspecified whether intrauterine present; Pain, abdominal, RLQ; Abn uterine bleeing. Report TRANSVAGINAL ULTRASOUND OF THE PELVIS WITH DOPPLER AND SPECTRAL WAVEFORM ANALYSIS OF THE OVARIES IF THEY WERE VISUALIZED CLINICAL INDICATION: Ectopic , unspecified location, unspecified whether intrauterine present; Pain, abdominal, RLQ; Abn uterine bleeing. TECHNIQUE: Transvaginal ultrasound of the pelvis with doppler and spectral waveform analysis of the ovaries, if they were visualized. COMPARISON: 02/02/2018 FINDINGS: Uterus measures 8.1 x 5.0 x 4.4 cm. Endometrium is 1 cm. No intrauterine gestation visualized. Small amount of fluid in the endocervical canal. Small amount of free fluid in the cul-de-sac. Right ovary measures 4.4 x 3.6 x 3.2 cm. There is a lesion arising from the right ovary, which appears exophytic, or adjacent to the right ovary. It measures 2.9 2.7 x 2.5 cm, unclear whether this is the previously seen lesion that measured 1.9 x 1.2 x 1.3 cm on the previous study. Left ovary appears normal. Left ovary measures 2.4 x 2.4 x 2.0 cm. Normal bilateral color Doppler imaging and spectral waveforms. IMPRESSION: 1. Exophytic right ovarian lesion versus ovarian lesion arising adjacent to the right ovary. It may have increased in size since the prior study. Small amount of free fluid in the pelvis. No intrauterine gestation. Findings suspicious for ectopic . CTR: Results were discussed with Dr. Alexis at 5:39 PM on 02/04/2018. Report Dictated on Final Dictated: 02/04/2018 5:21 pm Dictating Physician: MD CHAIREZ JOHN R Signed Date and Time: 02/04/2018 5:39 pm Signed by: MD CONTRREAS, MALLIKA Nash Date and Time: 02/04/2018 5:21 [facility] ELANA GAMING ([id number]) 1990 F UPADate Time Provider Department10/24/17 8:00 AM ALYSSA TIM) ANÍBAL During your visit today, we recorded the following information about you: Temperature Pulse Blood pressure Weight 98.9 degrees 96/minute 112/69 88.5 kg Last Period 10/05/17Ralaura Tim PA-C, PA 10/24/2017 8:15 AM Signed10/24/2017Patient presents with:Viral Syndrome: cough, congested, chills, fatigue, headache, fever X 2 daysSUBJECTIVE: This is a 26 year old that is here today for acute onset cough,body aches, fever (101F last night) and fatigue x 2-3 days. She has felt newlywheezing and chest tightness last night..Patient denies shortness of breath, increased WOB, or chest pain.Asthma: nonePneumonia: noneTobacco: nonePain on scale of 0-10 with 0 being no pain and 10 being greatest pain: 4Nothing makes the symptoms better. Nothing makes them worse.Self-treatment:. noneThe severity is mild and the symptoms are not improving.The patient did not have a similar problem in the last 3 months.The patient did not take any antibiotics in the last 3 months.Barriers to learning: none.Reviewed meds, OTCs, herbals or supplements.Reviewed allergies, medications, and past medical history..No past medical history on file.ALLERGIES Tamiflu [Oseltamivir Phosphate]MEDICATIONSN o current outpatient prescriptions on file.No current facility-administered medications for this visit.Medications and allergies reviewed by this provider.SOCIAL HISTORYSocial History Marital status: Single Spouse name: Years of education: Number of children:Social History Main Topics Smoking status: Never Smoker Smokeless status: Never UsedREVIEW OF SYSTEMSReview of SystemsROS: constitutional-neg, heent-neg, heart-neg, respiratory-cough, skin-neg,lymph-neg, neuro-neg, - All systems neg except as noted above in HPI.OBJECTIVE:BP 112/69 (BP Site: Right Arm, BP Position: Sitting, BP Cuff Size: RegularAdult) Pulse 96 Temp 37.2 ?C (98.9 ?F) (Tympanic) Wt 88.5 kg (195 lb) LMP 10/05/2017 (Approximate) SpO2 95%. Vital signs reviewed by thisprovider.Physical ExamAAOx3, no acute distress, patient is pleasant, well groomed, dressedappropriately. Persistent dry cough during examGeneral: WD, WN, NAD, alert.HEENT: No facial erythema or swelling.Eyes: PERRL. EOMI. No erythema or discharge.-Ears: TMs pearly jaime with light reflex, ear canals not red or swollen.-Nose-nasal mucosa pink and no discharge/polyps, nasal septum midline.-Throat: pharynx pink with no edema/mass/exudate/anat thema, buccal mucosa pinkand moist with no lesions.Head: no maxillary tenderness noted upon palpation.Neck: no masses or lymphadenopathy.Chest: Insp and exp wheezes in the middle and upper meeks bilaterally but withequal breath sounds; good air exchange throughout. No rhonchi, or crackles; noretractions, tripoding, or nasal flaring noted.Heart: RRR, no murmur, rub, or gallop..ASSESSMENT/ROD N:1. Acute bronchitis, unspecified organism - ICD9: 466.0, ICD10: J20.9 (primarydiagnosis) Possibly was influenza at start, but too late for Tamiflu or swabs-patient allergic to Tamiflu2. Cough - ICD9: 786.2, ICD10: R053. Wheezing - ICD9: 786.07, ICD10: R06.2- PREDNISONE 20 MG TABLET- ALBUTEROL SULFATE HFA 90 MCG/ACTUATION AEROSOL INHALER- AZITHROMYCIN 250 MG TABLET- BENZONATATE 100 MG CAPSULEEncourage fluids, rest.Tylenol and Motrin for pain and fever. If you have a fever rotate between theTylenol and Motrin every 3 hours.Saline Nasil spray, Neti Pot, vaporizer, Vicks.Try Cepocol lozenges or Chloraseptic throat spray.Warm salt water gargles.Cough and deep breath- 10x/hr while awake.Take entire course of Antibiotics.Call PCP if sx worsen or no better.If symptoms worsen, or new symptoms develop go to ER.If you have worsening of breathing or breathing changes- go to ER.If you have persistent fever unrelieved by Tylenol/Motrin- go to the ER.Follow up as needed.The patient verbalizes understanding and is in agreement with plan of care.Barriers to learning: none.SUMAYA Alvares-Varun Tim PA-C, SUMAYA 10/24/2017 8:13 AM SignedASSESSMENT/PLAN: 1. Acute bronchitis, unspecified organism - Possibly was influenza at start, but too late for Tamiflu or swabs-patient allergic to Tamiflu2. Cough3. Wheezing -- PREDNISONE 20 MG TABLET- ALBUTEROL SULFATE HFA 90 MCG/ACTUATION AEROSOL INHALER- AZITHROMYCIN 250 MG TABLET- BENZONATATE 100 MG CAPSULEEncourage fluids, rest.Tylenol and Motrin for pain and fever. If you have a fever rotate between theTylenol and Motrin every 3 hours.Saline Nasil spray, Neti Pot, vaporizer, Vicks.Try Cepocol lozenges or Chloraseptic throat spray.Warm salt water gargles.Cough and deep breath- 10x/hr while awake.Take entire course of Antibiotics.Call PCP if sx worsen or no better.If symptoms worsen, or new symptoms develop go to ER.If you have worsening of breathing or breathing changes- go to ER.If you have persistent fever unrelieved by Tylenol/Motrin- go to the ER.Follow up as needed.The patient verbalizes understanding and is in agreement with plan of care.Barriers to learning: none.SUMAYA Alvares-CReferring Provider: SELF [200]Allergies As of Date: 10/24/2017 Noted Allergy ReactionTAMIFLU (OSELTAMIVIR PHOSPHATE) 10/24/2017 2 - RashDate Reviewed: 10/24/2017Reviewed by: Casi Silver Ma - Fully AssessedReason for Visit: Viral Syndrome [119] Cmt: cough, congested, chills, fatigue, headache, fever X 2 daysPrimary Visit Diagnosis:Acute bronchitis, unspecified organism [J20.9] Other Visit Diagnoses:Cough [R05] Wheezing [R06.2]Order(s):predni SONE (DELTASONE) 20 mg tabletTake 2 tablets by mouth once daily for 5 days.Disp: 10 tabletRfl: 0 albuterol HFA (PROAIR HFA) 90 mcg/actuation inhalerInhale 2 Puffs as instructed every 4 hours as needed.Disp: 1 InhalerRfl: 0 azithromycin (ZITHROMAX) 250 mg tabletTake 1 tablet by mouth as directed. Take 2 tablets by mouth on Day 1, then 1 tablet by mouth every day thereafter for 4 daysDisp: 6 tabletRfl: 0 benzonatate (TESSALON PERLE) 100 mg capsuleTake 2 capsules by mouth three times daily as needed.Disp: 30 capsuleRfl: 0Prescriptions as of 10/24/2017 Sig: PREDNISONE 20 MG TABLET Take 2 tablets by mouth once * ALBUTEROL SULFATE HFA 90 MCG/* Inhale 2 Puffs as instructed * AZITHROMYCIN 250 MG TABLET Take 1 tablet by mouth as dir* BENZONATATE 100 MG CAPSULE Take 2 capsules by mouth thre*Problem List As Of Date: 10/24/2017(None) Other instructions from your clinician: ASSESSMENT/PLAN: 1. Acute bronchitis, unspecified organism - Possibly was influenza at start, but too late for Tamiflu or swabs- patient allergic to Tamiflu 2. Cough 3. Wheezing - - PREDNISONE 20 MG TABLET - ALBUTEROL SULFATE HFA 90 MCG/ACTUATION AEROSOL INHALER - AZITHROMYCIN 250 MG TABLET - BENZONATATE 100 MG CAPSULE Encourage fluids, rest. Tylenol and Motrin for pain and fever. If you have a fever rotate between the Tylenol and Motrin every 3 hours. Saline Nasil spray, Neti Pot, vaporizer, Vicks. Try Cepocol lozenges or Chloraseptic throat spray. Warm salt water gargles. Cough and deep breath- 10x/hr while awake. Take entire course of Antibiotics. Call PCP if sx worsen or no better. If symptoms worsen, or new symptoms develop go to ER. If you have worsening of breathing or breathing changes- go to ER. If you have persistent fever unrelieved by Tylenol/Motrin- go to the ER. Follow up as needed. The patient verbalizes understanding and is in agreement with plan of care. Barriers to learning: none. MALIKA AlvaresCPrescriptions ordered this encounter Disp Refills Start End PREDNISONE 20 MG TABLET 10 t* 0 10/24/2017 10/29/2017 Route: ORAL Sig: Take 2 tablets by mouth once daily for 5 days. ALBUTEROL SULFATE HFA 90 MCG/ACTUATI* 1 In* 0 10/24/2017 Route: INHALATION Sig: Inhale 2 Puffs as instructed every 4 hours as needed. AZITHROMYCIN 250 MG TABLET 6 ta* 0 10/24/2017 Route: ORAL Sig: Take 1 tablet by mouth as directed. Take 2 tablets by mouth on Day 1, then 1 tablet by mouth every day thereafter for 4 days BENZONATATE 100 MG CAPSULE 30 c* 0 10/24/2017 Route: ORAL Sig: Take 2 capsules by mouth three times daily as needed.Letter MALIKA Malcolm[address], [address] [address]Zsagm: [phone]: [phone] C Schummer 2017RE: Elana GamingTo Whom it May Concern:This is to certify that Elana Gaming was seen here for medical care.Please excuse them from work today.Thank you for your cooperation in this matter.Sincerely,Carrillo Tim PA-C(Electronically signed to expedite processing) Status:Closed by ALYSSA TIM on 10/24/17 Normal [facility] PROGRESSon 10-24-2017 PROGRESS HNO ID: [id number]: Alyssa Iglesias (Madhu) Donya Tim: (none)Author Type: Physician AssistantType: Progress NotesFiled: 10/24/2017 8:15 AMNote Text:10/24/2017Patient presents with:Viral Syndrome: cough, congested, chills, fatigue, headache, fever X 2daysSUBJECTIVE: This is a 26 year old that is here today for acute onsetcough, body aches, fever (101F last night) and fatigue x 2-3 days. She hasfelt newly wheezing and chest tightness last night..Patient denies shortness of breath, increased WOB, or chest pain.Asthma: nonePneumonia: noneTobacco: nonePain on scale of 0-10 with 0 being no pain and 10 being greatest pain: 4Nothing makes the symptoms better. Nothing makes them worse.Self-treatment:. noneThe severity is mild and the symptoms are not improving.The patient did not have a similar problem in the last 3 months.The patient did not take any antibiotics in the last 3 months.Barriers to learning: none.Reviewed meds, OTCs, herbals or supplements.Reviewed allergies, medications, and past medical history..No past medical history on file.ALLERGIES Tamiflu [Oseltamivir Phosphate]MEDICATIONSN o current outpatient prescriptions on file.No current facility-administered medications for this visit.Medications and allergies reviewed by this provider.SOCIAL HISTORYSocial History Marital status: Single Spouse name: Years of education: Number of children:Social History Main Topics Smoking status: Never Smoker Smokeless status: Never UsedREVIEW OF SYSTEMSReview of SystemsROS: constitutional-neg, heent-neg, heart-neg, respiratory-cough,skin -neg, lymph-neg, neuro-neg, - All systems neg except as noted above inHPI.OBJECTIVE:BP 112/69 (BP Site: Right Arm, BP Position: Sitting, BP Cuff Size: RegularAdult) Pulse 96 Temp 37.2 ?C (98.9 ?F) (Tympanic) Wt 88.5 kg (195lb) LMP 10/05/2017 (Approximate) SpO2 95%. Vital signs reviewed bythis provider.Physical ExamAAOx3, no acute distress, patient is pleasant, well groomed, dressedappropriately. Persistent dry cough during examGeneral: WD, WN, NAD, alert.HEENT: No facial erythema or swelling.Eyes: PERRL. EOMI. No erythema or discharge.-Ears: TMs pearly jaime with light reflex, ear canals not red or swollen.-Nose-nasal mucosa pink and no discharge/polyps, nasal septum midline.-Throat: pharynx pink with no edema/mass/exudate/anat thema, buccal mucosapink and moist with no lesions.Head: no maxillary tenderness noted upon palpation.Neck: no masses or lymphadenopathy.Chest: Insp and exp wheezes in the middle and upper meeks bilaterally butwith equal breath sounds; good air exchange throughout. No rhonchi, orcrackles; no retractions, tripoding, or nasal flaring noted.Heart: RRR, no murmur, rub, or gallop..ASSESSMENT/ROD N:1. Acute bronchitis, unspecified organism - ICD9: 466.0, ICD10: J20.9(primary diagnosis) Possibly was influenza at start, but too late for Tamiflu or swabs-patient allergic to Tamiflu2. Cough - ICD9: 786.2, ICD10: R053. Wheezing - ICD9: 786.07, ICD10: R06.2- PREDNISONE 20 MG TABLET- ALBUTEROL SULFATE HFA 90 MCG/ACTUATION AEROSOL INHALER- AZITHROMYCIN 250 MG TABLET- BENZONATATE 100 MG CAPSULEEncourage fluids, rest.Tylenol and Motrin for pain and fever. If you have a fever rotate betweenthe Tylenol and Motrin every 3 hours.Saline Nasil spray, Neti Pot, vaporizer, Vicks.Try Cepocol lozenges or Chloraseptic throat spray.Warm salt water gargles.Cough and deep breath- 10x/hr while awake.Take entire course of Antibiotics.Call PCP if sx worsen or no better.If symptoms worsen, or new symptoms develop go to ER.If you have worsening of breathing or breathing changes- go to ER.If you have persistent fever unrelieved by Tylenol/Motrin- go to the ER.Follow up as needed.The patient verbalizes understanding and is in agreement with plan ofcare.Barriers to learning: none.Alyssa Tim PA-C Normal [facility] Vital Signs Date Time Vital Sign Value Performing Clinician Facility 08-17-2025 06:32-0400 Body temperature 98.4 [degF] Dr. Jonathan Lorenzana MD Work Phone: [facility] 08-17-2025 06:32-0400 Diastolic blood pressure 78 mm[Hg] Dr. Jonathan Lorenzana MD Work Phone: [facility] 08-17-2025 06:32-0400 Heart rate 88 /min Dr. Jonathan Lorenzana MD Work Phone: 2(724)987-083561 [place] [address] 08-17-2025 06:32-0400 Respiratory rate 14 /min Dr. Jonathan Lorenzana MD Work Phone: 5(612)491-842861 [place] [address] 08-17-2025 06:32-0400 SaO2% (BldA) [Mass fraction] 98 % Dr. Jonathan Lorenzana MD Work Phone: 9(892)686-604061 [place] [address] 08-17-2025 06:32-0400 Systolic blood pressure 108 mm[Hg] Dr. Jonathan Lorenzana MD Work Phone: 0(935)853-803361 [place] [address] 08-11-2025 10:48-0400 Body temperature 98.7 [degF] Dr. Jonathan Lorenzana MD Work Phone: 4(815)513-002561 [place] [address] 08-11-2025 10:48-0400 Diastolic blood pressure 78 mm[Hg] Dr. Jonathan Lorenzana MD Work Phone: 2(280)309-421061 [place] [address] 08-11-2025 10:48-0400 Heart rate 78 /min Dr. Jonathan Lorenzana MD Work Phone: 9(585)337-539861 [place] [address] 08-11-2025 10:48-0400 Respiratory rate 16 /min Dr. Jonathan Lorenzana MD Work Phone: 4(563)556-523361 [place] [address] 08-11-2025 10:48-0400 SaO2% (BldA) [Mass fraction] 99 % Dr. Jonathan Lorenzana MD Work Phone: 9(603)617-426961 [place] [address] 08-11-2025 10:48-0400 Systolic blood pressure 134 mm[Hg] Dr. Jonathan Lorenzana MD Work Phone: 3(137)857-550061 [place] [address] 08-11-2025 10:44-0400 Body height 163.[address] Jonathan Lorenzana MD Work Phone: 4(834)581-104261 [place] [address] 08-11-2025 10:44-0400 Body mass index (BMI) [Ratio] 31.1 kg/m2 Dr. Jonathan Lorenzana MD Work Phone: 2(572)697-235661 [place] [address] 10-21-2025 10:44-0400 Body weight 83.[address] Jonathan Lorenzana MD Work Phone: [facility] 01-02-2025 10:20-0400 Body mass index (BMI) [Ratio] 32.12 kg/m2 María Keyes MD Work Phone: [facility] 01-02-2025 10:20-0400 Body temperature 97.7 [degF] María Keyes MD Work Phone: [facility] 01-02-2025 10:20-0400 Body weight 82.24 kg María Keyes MD Work Phone: [facility] 01-02-2025 10:20-0400 Diastolic blood pressure 68 mm[Hg] María Keyes MD Work Phone: [facility] 01-02-2025 10:20-0400 Heart rate 91 /min María Keyes MD Work Phone: [facility] 01-02-2025 10:20-0400 SaO2% (BldA) [Mass fraction] 100 % María Keyes MD Work Phone: [facility] 01-02-2025 10:20-0400 Systolic blood pressure 112 mm[Hg] María Keyes MD Work Phone: [facility] 01-23-2024 11:18-0400 Body height 160 cm Michelle Campos MD Work Phone: [facility] 01-23-2024 11:18-0400 Body mass index (BMI) [Ratio] 32.42 kg/m2 Michelle Campos MD Work Phone: [facility] 01-23-2024 11:18-0400 Body weight 83.01 kg Michelle Campos MD Work Phone: [facility] 01-23-2024 11:18-0400 Diastolic blood pressure 90 mm[Hg] Michelle Campos MD Work Phone: [facility] 01-23-2024 11:18-0400 Heart rate 89 /min Michelle Campos MD Work Phone: [facility] 01-23-2024 11:18-0400 Systolic blood pressure 145 mm[Hg] Michelle Campos MD Work Phone: [facility] 01-16-2024 10:45-0400 Body height 160 cm Ramandeep Stocking MERCHANDISE DIRECTOR - LOOP SEWER Work Phone: [facility] 01-16-2024 10:45-0400 Body mass index (BMI) [Ratio] 32.35 kg/m2 Ramandeep Stocking MERCHANDISE DIRECTOR - LOOP SEWER Work Phone: [facility] 01-16-2024 10:45-0400 Body weight 82.83 kg Ramandeep Stocking MERCHANDISE DIRECTOR - LOOP SEWER Work Phone: [facility] 01-16-2024 10:45-0400 Diastolic blood pressure 70 mm[Hg] Ramandeep Stocking MERCHANDISE DIRECTOR - LOOP SEWER Work Phone: [facility] 01-16-2024 10:45-0400 Heart rate 90 /min Ramandeep Stocking MERCHANDISE DIRECTOR - LOOP SEWER Work Phone: [facility] 01-16-2024 10:45-0400 SaO2% (BldA) [Mass fraction] 100 % Ramandeep Stocking MERCHANDISE DIRECTOR - LOOP SEWER Work Phone: [facility] 01-16-2024 10:45-0400 Systolic blood pressure 118 mm[Hg] Ramandeep Stocking MERCHANDISE DIRECTOR - LOOP SEWER Work Phone: [facility] 11-28-2023 09:08-0500 Body height 160 cm Michelle Campos MD Work Phone: [facility] 11-28-2023 09:08-0500 Body mass index (BMI) [Ratio] 31.89 kg/m2 Michelle Campos MD Work Phone: [facility] 11-28-2023 09:08-0500 Body weight 81.65 kg Michelle Campos MD Work Phone: [facility] 11-28-2023 09:08-0500 Diastolic blood pressure 76 mm[Hg] Michlele Campos MD Work Phone: [facility] 11-28-2023 09:08-0500 Systolic blood pressure 130 mm[Hg] Michelle Campos MD Work Phone: [facility] 11-26-2023 15:48-0500 Body temperature 98.2 [degF] Collette Salcedo MERCHANDISE DIRECTOR - PEER SPECIALIST Work Phone: [facility] 11-26-2023 15:48-0500 Diastolic blood pressure 72 mm[Hg] Collette Denisse MERCHANDISE DIRECTOR - PEER SPECIALIST Work Phone: [facility] 11-26-2023 15:48-0500 Heart rate 77 /min Collette eDnisse MERCHANDISE DIRECTOR - PEER SPECIALIST Work Phone: [facility] 11-26-2023 15:48-0500 Systolic blood pressure 117 mm[Hg] Collette Denisse MERCHANDISE DIRECTOR - PEER SPECIALIST Work Phone: [facility] 10-31-2023 13:51-0500 Body mass index (BMI) [Ratio] 31.74 kg/m2 Michelle Campos MD Work Phone: [facility] 10-31-2023 13:51-0500 Body weight 81.28 kg Michelle Campos MD Work Phone: [facility] 10-31-2023 13:51-0500 Diastolic blood pressure 72 mm[Hg] Michelle Campos MD Work Phone: [facility] 10-31-2023 13:51-0500 Heart rate 72 /min Michelle Campos MD Work Phone: [facility] 10-31-2023 13:51-0500 Systolic blood pressure 120 mm[Hg] Michelle Campos MD Work Phone: [facility] 10-12-2023 12:16-0500 Body height 160 cm Tierney Law NP Work Phone: [facility] 10-12-2023 12:16-0500 Body mass index (BMI) [Ratio] 32.42 kg/m2 Tierney Law NP Work Phone: [facility] 10-12-2023 12:16-0500 Body temperature 98.01 [degF] Tierney Law PEER SPECIALIST Work Phone: [facility] 10-12-2023 12:16-0500 Body weight 83.01 kg Tierney Law PEER SPECIALIST Work Phone: [facility] 10-12-2023 12:16-0500 Diastolic blood pressure 81 mm[Hg] Tierney Law PEER SPECIALIST Work Phone: [facility] 10-12-2023 12:16-0500 Heart rate 87 /min Tierney Law PEER SPECIALIST Work Phone: [facility] 10-12-2023 12:16-0500 SaO2% (BldA) [Mass fraction] 100 % Tierney Law PEER SPECIALIST Work Phone: [facility] 10-12-2023 12:16-0500 Systolic blood pressure 138 mm[Hg] Tierney Law PEER SPECIALIST Work Phone: [facility] 10-10-2023 08:13-0500 Body height 160 cm Ramandeep Stocking MERCHANDISE DIRECTOR - LOOP SEWER Work Phone: [facility] 10-10-2023 08:13-0500 Body mass index (BMI) [Ratio] 32.42 kg/m2 Ramandeep Stocking MERCHANDISE DIRECTOR - LOOP SEWER Work Phone: [facility] 10-10-2023 08:13-0500 Body weight 83.01 kg Ramandeep Stocking MERCHANDISE DIRECTOR - LOOP SEWER Work Phone: [facility] 10-10-2023 08:13-0500 Diastolic blood pressure 72 mm[Hg] Ramandeep Stocking MERCHANDISE DIRECTOR - LOOP SEWER Work Phone: [facility] 10-10-2023 08:13-0500 Heart rate 95 /min Ramandeep Stocking MERCHANDISE DIRECTOR - LOOP SEWER Work Phone: [facility] 10-10-2023 08:13-0500 SaO2% (BldA) [Mass fraction] 99 % Ramandeep Stocking MERCHANDISE DIRECTOR - LOOP SEWER Work Phone: [facility] 10-10-2023 08:13-0500 Systolic blood pressure 106 mm[Hg] Ramandeep Stocking MERCHANDISE DIRECTOR - LOOP SEWER Work Phone: [facility] 01-03-2023 08:42-0400 Body height 160 cm Tho Kenney MD Work Phone: [facility] 01-03-2023 08:42-0400 Body mass index (BMI) [Ratio] 29.58 kg/m2 Tho Kenney MD Work Phone: [facility] 01-03-2023 08:42-0400 Body temperature 98.1 [degF] Tho Kenney MD Work Phone: [facility] 01-03-2023 08:42-0400 Body weight 75.75 kg Tho Kenney MD Work Phone: [facility] 01-03-2023 08:42-0400 Diastolic blood pressure 82 mm[Hg] Tho Kenney MD Work Phone: [facility] 01-03-2023 08:42-0400 Heart rate 84 /min Tho Kenney MD Work Phone: [facility] 01-03-2023 08:42-0400 SaO2% (BldA) [Mass fraction] 98 % Tho Kenney MD Work Phone: [facility] 01-03-2023 08:42-0400 Systolic blood pressure 118 mm[Hg] Tho Kenney MD Work Phone: [facility] 11-05-2022 10:38-0500 Body height 160 cm Alvino Timbo GALICIAN - LOOP SEWER Work Phone: [facility] 11-05-2022 10:38-0500 Body mass index (BMI) [Ratio] 31.89 kg/m2 Alvino Timbo GALICIAN - LOOP SEWER Work Phone: [facility] 11-05-2022 10:38-0500 Body temperature 97.2 [degF] Alvino Haynes APRN - LOOP SEWER Work Phone: [facility] 11-05-2022 10:38-0500 Body weight 81.65 kg Alvino Haynes APRN - LOOP SEWER Work Phone: [facility] 11-05-2022 10:38-0500 Diastolic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 08-02-2023 Depresssion Monitoring Depresssion Monitoring [facility] Start: 06-22-2023 COVID-19 Vaccine () COVID-19 Vaccine () [facility] Start: 06-22-2023 Influenza vaccination Influenza Vaccine (#1) [facility] Start: 01-31-2023 End: 01-31-2023 Patient encounter procedure 01/31/2023 Office Visit Family Medicine Tho Kenney MD [address] [facility] [address] [place] [address] [facility] Start: 01-03-2023 End: 01-04-2024 Hemoglobin A1c/Hemoglobin.total in Blood Hemoglobin A1c Lab Routine Screening for diabetes mellitus Physical exam Expected: 01/03/2023 (Approximate), Expires: 01/04/2024 [facility] Work Phone: Comment on above: Expected: 01/03/2023 (Approximate), Expi res: 01/04/2024 Start: 01-03-2023 End: 01-04-2024 Lipid 1996 panel - Serum or Plasma Lipid panel Lab Routine Physical exam Hypercholesteremia Expected: 01/03/2023 (Approximate), Expires: 01/04/2024 [facility] Comment on above: Expected: 01/03/2023 (Approximate), Expi res: 01/04/2024 Start: 01-03-2023 End: 01-04-2024 Thyrotropin [Units/volume] in Serum or Plasma TSH Lab Routine LELE (generalized anxiety disorder) Moderate episode of recurrent major depressive disorder (CMS/HCC) Expected: 01/03/2023 (Approximate), Expires: 01/04/2024 [facility] Comment on above: Expected: 01/03/2023 (Approximate), Expi res: 01/04/2024 Start: 07-07-2022 End: 07-07-2022 Patient encounter procedure [facility] Start: 06-21-2022 Depression Screen Depression Screen [facility] Start: 02-03-2022 Diabetes mellitus screening Diabetes Screening [facility] Start: 12-12-2021 COVID-19 Vaccine (3 - Booster for Pfizer series) COVID-19 Vaccine (3 - Booster for Pfizer series) [facility] Start: 11-27-2021 Cervical cancer screen Cervical cancer screen [facility] Work Phone: Start: 09-06-2021 COVID-19 Vaccine (3 - Booster for Pfizer series) COVID-19 Vaccine (3 - Booster for Pfizer series) [facility] Start: 08-29-2021 End: 08-29-2021 Patient encounter procedure 08/29/2021 Office Visit Obstetrics and Gynecology Noel Callahan MD [address] [place] [address], [address] [place], [place] [phone] [facility] 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 Start: 08-29-2021 End: 08-29-2021 Office Visit 08/29/2021 Office Visit Obstetrics and Gynecology Noel Callahan MD [address] [place] [address], [address] [place], [place] [phone] [facility] 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 Start: 08-02-2021 End: 08-02-2021 Patient encounter procedure 08/02/2021 Office Visit Orthopedic Surgery Remedios Caro PA-C [address] [place] [phone] [facility] Start: 07-20-2021 End: 07-20-2021 Patient encounter procedure 07/20/2021 Appointment General Surgery Davy Pat MD [address] [facility] [address] [place], [place] [phone] [facility] Start: 06-22-2021 Influenza vaccination Flu vaccine (#1) [facility] Work Phone: Start: 02-03-2021 End: 02-03-2021 Office Visit 02/03/2021 Office Visit Endocrinology Miguel Delvalle DO [address] [place], [place] [phone] [facility] [place] Start: 08-18-2020 Screening for malignant neoplasm of cervix Cervical cancer screen [facility] Work Phone: Start: 06-22-2020 Influenza vaccination Flu vaccine (#1) [facility] Work Phone: Start: 01-22-2020 End: 01-22-2020 Office Visit 01/22/2020 Office Visit Family Medicine Melvina Campos MD [address] [facility], [address] [place], [place] [phone] [facility] Start: 12-22-2019 End: 12-22-2019 Office Visit 12/22/2019 Office Visit Obstetrics and Gynecology Noel Callahan MD [address] [facility], [address] [place], [place] [phone] [facility] 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 Start: 2019 Screening for malignant neoplasm of cervix [facility] Start: 06-22-2019 Influenza vaccination Flu vaccine (#1) [facility] Work Phone: Start: 2008 DTaP/Tdap/Td vaccine (1 - Tdap) DTaP/Tdap/Td vaccine (1 - Tdap) [facility] Start: 2008 DTaP/Tdap/Td Vaccines (1 - Tdap) DTaP/Tdap/Td Vaccines (1 - Tdap) [facility] Start: 2007 Hepatitis C screening Hepatitis C Screening [facility] Start: 2004 HIV screen HIV screen [facility] Work Phone: Start: 2004 HIV screening HIV screen [facility] Start: 2000 DTaP/Tdap/Td vaccine (1 - Tdap) DTaP/Tdap/Td vaccine (1 - Tdap) [facility] Work Phone: Start: 1990 MMR Vaccines (1 of 1 - Standard series) MMR Vaccines (1 of 1 - Standard series) [facility] Start: 1990 Varicella vaccination Varicella Vaccines (1 of 2 - 2-dose childhood series) [facility] Start: 1990 Varicella vaccine (1 of 2 - 2-dose childhood series) Varicella vaccine (1 of 2 - 2-dose childhood series) [facility] Start: 1989 Hepatitis B Vaccines (1 of 3 - 3-dose series) Hepatitis B Vaccines (1 of 3 - 3-dose series) [facility] Start: 1989 Hepatitis C screening Hepatitis C screen [facility] Start: 1989 HIV screening HIV Screening [facility] Bacteria identified in Urine by Culture Urine culture Microbiology Routine Cystitis with hematuria Ordered: 11/26/2023 [facility] Work Phone: Comment on above: Ordered: 11/26/2023 [facility] Work [facility]: Comment on above: As Needed until discontinued starting Cytology Cervical or vaginal smear or scraping study Pap Smear Pathology and Cytology Routine Screening for cervical cancer Ordered: 10/31/2023 [facility] Work Phone: Comment on above: Ordered: 10/31/2023 End: 07-20-2021 Intermittent pulse oximetry Pulse Oximetry Spot Check Respiratory Care Routine One Time for 1 Occurrences starting 07/20/2021 until 07/20/2021 [employer] Work Phone: Comment on above: One Time for 1 Occurrences starting 06/23 until 07/20/2021 Nasal Cannula Oxygen Nasal Cannu la Oxygen Respiratory Care Routine As Needed until discontinued starting 07/20/2021 [employer] Work Phone: Comment on above: As Needed until discontinued starting Nonrebreather mask oxygen Nonrebreather mask oxygen Respiratory Care Routine As Needed until discontinued starting 07/20/2021 [employer] Work Phone: Comment on above: As Needed until discontinued starting Oxygen therapy [Minimum Data Set] [employer] Work Phone: Comment on above: As Needed until discontinued starting Daily until disconti nued starting 07/20/2021 Patient Education ED Body Fluid Exposure Not ... ED Hypertension, To Be Confirmed [facility] Work Phone: Spirometry panel Incentive mitchel metry Respiratory Care Routine Q1H PRN until discontinued starting 07/20/2021 [employer] Phone: Comment on above: Q1H PRN until discontinued starting 06/23 SURESWAB(R) ADVANCED VAGINITIS PLUS, TMA ([facility]) Sureswab(R) Advanced Vaginitis Plus, TMA ([facility]) Lab Routine Screen for STD (sexually transmitted disease) [facility] on above: Ordered: 10/31/2023 Tissue exam Tissue exam Path ology and Cytology Routine HPV in female Or[facility]: [facility]/23/2024 [facility]: Comment on above: Ordered: 01/23/2024 Trichomonas vaginali s DNA probe Trichomonas vaginalis DNA probe Lab Routine Trichomonas infection Ordered: 11/28/2023 [facility]: Comment on above: Ordered: 11/28/2023 Immunizations Immunization Date Immunization Notes Care Provider Kayode youssef 04-24-2025 tuberculin skin test ; purified protein derivative solution, intradermal Marlene Mead APRN - LOOP SEWER Work Phone: [facility] [employer] 04-22-2025 tetanus toxoid, reduced diphtheria toxoid, and acellular pertussis vaccine, adsorbed Health Assessment [facility] 04-12-2025 tuberculin skin test ; purified protein derivative solution, intradermal Marlene Mead MERCHANDISE DIRECTOR - LOOP SEWER Work Phone: [facility] 08-27-2023 influenza, injectabl e, quadrivalent, contains preservative Tierney Law PEER SPECIALIST Work Phone: [facility] 08-27-2023 influenza virus vaccine, unspecified formulation Ramandeep Khadijahfransisco MERCHANDISE DIRECTOR - LOOP SEWER Work Phone: [facility] 08-11-2022 influenza, injectabl e, quadrivalent, preservative free Tho Kenney MD Work Phone: [facility] 08-11-2022 influenza virus vaccine, unspecified formulation Tho Kenney MD Work Phone: [facility] 07-12-2021 Pfizer SARS-CoV-2 Vaccination Tho Kenney MD Work Phone: [facility] 06-21-2021 Pfizer SARS-CoV-2 Vaccination Tho Kenney MD Work Phone: [facility] 08-12-2020 varicella virus vaccine Tierney Law PEER SPECIALIST Work Phone: [facility] 06-24-2020 measles, mumps and rubella virus vaccine Tierney Law PEER SPECIALIST Work Phone: [facility] 06-24-2020 varicella virus vaccine Tierney Law PEER SPECIALIST Work Phone: [facility] Payers Date Payer Category Payer Unknown [id number] 2025 Unknown [id number] 2025 Unknown [id number] 2025 Self-pay 2022 [facility] Care - [employer] [id number] 2022 Unknown 2020 Unknown [id number] 2018 Unknown BCBS BCBS OUT OF STATE xxxxxxxxxxxxxxx 2018-Present [address] [place] [address] xxxxxxxxxxxxxxx [id number] Unknown [id number] Unknown [id number] Unknown [id number] Unknown [id number] Unknown [id number] Unknown [id number] Social History Date Type Detail Facility Start: 12-08-2019 End: 08-11-2025 Tobacco smoking status NHIS Never smoker [employer] Work Phone: Start: 12-08-2019 End: 01-02-2025 Alcohol intake Current drinker of alcohol (finding) [employer] Work Phone: Start: 07-02-2017 Alcohol Comment rarely [employer] Work Phone: Start: 1990 Sex Assigned At Not on file [employer] Work Phone: Start: 08-17-2020 End: 01-03-2023 Tobacco use and exposure Never used [employer] Work Phone: Start: 08-17-2020 End: 06-21-2021 History SDOH Alcohol Frequency 2 [employer] Work Phone: Start: 10-26-2022 End: 01-03-2023 Exposure to SARS-CoV-2 (event) Not sure [employer] Work Phone: Start: 06-21-2021 History SDOH Alcohol Std Drinks 1 [employer] Work Phone: Start: 06-21-2021 History SDOH Social Connections Phone 5 [facility] Work Phone: Start: 06-21-2021 History SDOH Social Connections Living 3 [facility] Work Phone: Start: 06-21-2021 History SDOH Physica l Activity DPW 6 [employer] Work Phone: Start: 06-21-2021 History SDOH [facility]ica l [facility]: Start: 1990 Sex Assigned At Female [facility] Start: 08-01-2023 End: 01-02-2025 History of Social function [facility] Start: 08-01-2023 End: 01-02-2025 Tobacco use panel [facility] Adolescent depressio n screening assessment 12 [facility] Start: 08-10-2022 Gender identity Identifies as female gender (finding) [facility] Start: 08-10-2022 Sexual orientation Heterosexual (fin ding) [facility] Has the [employer], [employer], or [employer] threatened to shut off services in your home in past 12Mo No [facility] Are you now , , , , never or living with a partner? [facility] How often to you hav e a drink containing alcohol? Monthly or less [facility] How many standard drinks containing alcohol do you have on a typical day? 1 or 2 [facility] How often do you hav e 6 or more drinks on 1 occasion? Never [facility] Do you feel stress - tense, restless, nervous, or anxious, or unable to sleep at night because your mind is troubled all the time - these days [OSQ] Only a little [facility] (I/We) worried wheth er (my/our) food would run out before (I/we) got money to buy more. Never true [facility] Start: 05-22-2022 Sex Female (finding) [facility] Are you now , , , , never or living with a partner? [facility] Tobacco smoking stat us NHIS Unknown if ever smoked [facility] Work Phone: NEGATED: Highlighted rowStart: JORGE History of tobacco use Passive smoker [facility] Mental Status Date Assessment Result Facility 08-11-2025 Cognitive function Level Of Consciousness Awake [facility] Work Phone: Clinical Notes 07-14-2021 to 08-20-2025 Telephone Encounter - Camelia Dyer LPN - 08/20/2025 1:44 PM EDTTelephone Encounter - Camelia Dyer LPN - 08/20/2025 1:44 PM EDTTelephone Encounter - Camelia Dyer LPN - 06/12/2025 12:04 PM EDT Note Date & Type Note Facility 08-20-2025 Telephone encounter Note Form atting of this note might be different from the original. LM for return call. Letter mailed [facility] 08-20-2025 Miscellaneous Notes Formattin g of this note might be different from the original. LM for return call. Letter mailed LM for return call. LM for return call. Please assist with scheduling her annual exam. Thank you ----- Message from Camelia Edwards sent at 04/03/2025 1:51 PM EDT ----- Regarding: appt Annual scheduled? Send letter documented in this encounter [facility] 08-11-2025 Discharge summary [facility] 06-12-2025 Telephone encounter Note LM for return call. [facility] 06-12-2025 Miscellaneous Notes LM for return call. LM for return call. Please assist with scheduling her annual exam. Thank you ----- Message from Camelia Edwards sent at 04/03/2025 1:51 PM EDT ----- Regarding: appt Annual scheduled? Send letter documented in this encounter [facility] 05-11-2025 Telephone encounter Note LM for return call. Please assist with scheduling her annual exam. Thank you [facility] 05-11-2025 Telephone encounter Note ----- Message from Camelia Edwards sent at 04/03/2025 1:51 PM EDT ----- Regarding: appt Annual scheduled? Send letter [facility] 04-26-2025 History of Presen t illness Narrative PPD read 0mm. documented in this encounter [facility] 04-14-2025 History of Presen t illness Narrative TB test read is negative on right forearm. 0 mm induration. No skin reaction noted. Form was filled out and returned to patient. JULIO CESAR Tee CNP documented in this encounter [facility] 03-29-2025 Note Addended by: RAMANDEEP DOLAN on: 03/29/2025 04:48 PM Modules accepted: Orders [facility] 03-29-2025 Note Addended by: RAMANDEEP DOLAN on: 03/29/2025 04:48 PM Modules accepted: Orders [facility] 03-29-2025 Miscellaneous Notes Addended by: RAMANDEEP LAU on: 03/29/2025 04:48 PM Modules accepted: Orders Pt is requesting annual lab work be order before her visit in june of this year. documented in this encounter [facility] 03-28-2025 Telephone encounter Note Pt is requesting annual lab work be order before her visit in june of this . [facility] 01-28-2025 History of Presen t illness Narrative DATE OF SERVICE: 01/28/2025 PATIENT NAME: Elana Witt : 1990 AGE: 34 y.o. 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 female who presents for evaluation of rash. Patient has seen a handcrew foreman in the past. C/o-rash located on the Right Hand x Dec 02. Rash started on after drinking an energy drink with coconut in it- has an allergy. The itching has improved. Admits blistering in the area. Patient states the rash was itchy in the past. Denies itching, burning, pain. Denies spreading. Denies new personal products. Denies new medications/supplements or changes in medications/supplements size, shape, color. Denies recent illness/fever. Denies anyone in the same house with similar rash. Denies daily allergy medication. Denies personal or family hx of eczema or psoriasis. Admits allergies and sensitive skin. Admits previous treatment with Betamethasone, Triamcinolone Ointment and Keflex. She took a medrol dose pack for Sciatica, unsure if this helped. Currently using Hempz wash and lotion and All for sensitive skin laundry detergent. Are you , trying to become or ? No History of pacemaker/ defibrillator? No History of HIV/ Hep C? No Allergies to Lidocaine, Epinephrine, Latex or Adhesive? No REVIEW OF SYSTEMS: General/Constitutional Feels well; denies h/o fatigue, weight change, night sweats, fevers or chills. Lymphatic Denies swollen lymph nodes. Dermatologic As per HPI; denies new rashes, itching, hair loss, skin or nail changes. There were no vitals filed for this visit. GENERAL APPEARANCE:?Alert & oriented x3, pleasant. Well developed, well nourished. PSYCH: appropriate mood and affect 1. Post inflammatory hypopigmentation Right Hand - Posterior []Chronic [x]Acute []Stable [x]Flaring/Exacerbation Reviewed patient photos. Photos consistent with suspected contact dermatitis. Now resolved. Education provided that the light areas at sites of previous involvement are known as post inflammatory hypopigmentation. The discoloration will continue to resolve over time; however, advised that it can take many months and if patient continues to develop new areas of involvement, the discoloration may persist. Start: Clobetasol Ointment- Apply to affected areas on the right hand twice daily x 2 weeks. Stop using when clear. Repeat as needed for flares. Do not use on face, armpits, groin. Related Medications clobetasol (Temovate) 0.05 % ointment Apply to affected areas on the right hand BID x 2 weeks. Stop using when clear. Repeat as needed for flares. Do not use on face, armpits, groin. 2. Rash Related Procedures [facility] Dermatology Orders Placed This Encounter Medications clobetasol (Temovate) 0.05 % ointment Sig: Apply to affected areas on the right hand BID x 2 weeks. Stop using when clear. Repeat as needed for flares. Do not use on face, armpits, groin. Dispense: 60 g Refill: 0 Follow up if symptoms worsen or fail to improve. Zina Echols PA-C 01/28/25 1:11 PM REFERRING MD: [id number] [facility] [id number] documented in this encounter [facility] 01-28-2025 Instructions Eleni Nunn LPN - 01/28/2025 4:00 PM EDT Start: Clobetasol Ointment- Apply to affected areas on the right hand twice daily x 2 weeks. Stop using when clear. Repeat as needed for flares. Do not use on face, armpits, groin. Sunscreen- Keep the area protected from the sun. Appropriate skin care is critical. Gentle non-soap cleansers should be utilized. The liberal use of bland emollients is essential. These products should be fragrance and dye free. Use gentle, fragrance free, dye free soaps, cleanser (Aquaphor, Aveeno, CeraVe, Cetaphil, Eucerin, La Yannick Posay, Neutrogena, Vaseline, Vanicream), and laundry products (usually found in a white bottle or box). Dry skin care and importance of liberal emollient use reviewed. Sunscreen Use & Sun Safety It is recommended a water-resistant, broad-spectrum sunscreen with SPF of at least 15 to 30. Apply sunscreen to all exposed skin 30 minutes before sun exposure, and then every 2 hours. Apply sooner if sweating or coming out of pool/water. Using the proper amount of sunscreen in important. An adult should use about 1-1.5 oz of sunscreen to the entire body, about 2-3 tablespoons per application. Use a lip balm with SPF 30 or higher to protect the lips from sun damage. Limit time in the sun, especially between 10 AM and 2 PM when the sun s rays are the strongest. Clothing labeled with a UPF (ultra-lisbeth protection factor) rating indicates that it s protective against UV rays. Also, wear wide-brimmed hats, and sunglasses for sun protection. The nature of sun-induced photo-aging and skin cancers was discussed. Sun avoidance, protective clothing, and the use of Broad spectrum (UVA and UVB) minimum 30-SPF sunscreens is advised. Apply sunscreen 30 minutes prior to sun exposure, and reapply every 2 hours and as needed after swimming or sweating. Observe closely for skin damage/changes, and call if such occurs. documented in this encounter [facility] 01-02-2025 History of Presen t illness Narrative Images from the original note were not included. . [place] [id number] [facility] [address] Dept: [phone] Dept Visit type: Established patient Reason for Visit: Sciatica and Rash (Right hand, has used doxy, keflex, and kenalog cream.) @[place]@ Assessment and Plan 1. Current mild episode of major depressive 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 (HCC) - buPROPion XL (Wellbutrin XL) 300 MG 24 hr tablet; Take 1 tablet (300 mg) by mouth every morning. Do not crush, chew, or split., Starting Sun01/02/2025, Until Sun07/01/2025, Normal - FLUoxetine (PROzac) 10 MG capsule; Take 1 capsule (10 mg) by mouth daily., Starting Sun01/02/2025, Until Sun07/01/2025, Normal 2. LELE (generalized anxiety disorder) - FLUoxetine (PROzac) 10 MG capsule; Take 1 capsule (10 mg) by mouth daily., Starting Sun01/02/2025, Until Sun07/01/2025, Normal 3. Rash - [facility] - betamethasone dipropionate (Diprosone) 0.05 % lotion; Apply topically 2 times daily as needed for irritation or rash., Starting 01/02/2025, Until 05/02/2025 at 2359, Normal 4. Sciatica, unspecified laterality - methylPREDNISolone (Medrol Dospak) 4 MG tablets; Take as directed on package., Normal No follow-ups on file. Subjective Anxiety Presents for follow-up visit. Patient reports no chest pain, confusion, decreased concentration, depressed mood, dizziness, irritability, malaise, nervous/anxious behavior, obsessions, palpitations, restlessness, shortness of breath or suicidal ideas. The quality of sleep is good. Nighttime awakenings: none. Review of Systems Constitutional: Negative for activity change, appetite change, chills, diaphoresis, fatigue, fever, irritability and unexpected weight change. HENT: Negative for sore throat and trouble swallowing. Respiratory: Negative for apnea, cough, choking, chest tightness, shortness of breath, wheezing and stridor. Cardiovascular: Negative for chest pain, palpitations and leg swelling. Gastrointestinal: Negative for abdominal pain, constipation and diarrhea. Endocrine: Negative for cold intolerance, heat intolerance, polydipsia, polyphagia and polyuria. Genitourinary: Negative for frequency and urgency. Musculoskeletal: Positive for gait problem. Negative for neck pain and neck stiffness. States that she has been battling sciatica of her right leg for about 2 weeks Pain starts from lower back and radiates down to toes, pins and needles sensation No know trigger but does do heavy lifting at her job No cauda equina Supportive treatment with modest help Skin: Positive for rash. Negative for wound. Rash on dorsum of right hand S/p doxy (incomplete due to GI symptoms) and currently finishing keflex Topical kenalog as well Mild improvement, still red and scaling Neurological: Negative for dizziness, tremors, syncope, weakness, light-headedness, numbness and headaches. Hematological: Negative for adenopathy. Psychiatric/Behavioral: Negative for agitation, behavioral problems, confusion, decreased concentration, dysphoric mood, hallucinations, self-injury, sleep disturbance and suicidal ideas. The patient is not nervous/anxious and is not hyperactive. Allergies Allergen Reactions Oseltamivir Hives, Nausea And Vomiting and Rash Outpatient Medications Prior to Visit Medication Sig Dispense Refill cephalexin (Keflex) 500 MG capsule TAKE ONE CAPSULE BY MOUTH THREE TIMES DAILY FOR 7 DAYS triamcinolone (Kenalog) 0.1 % ointment APPLY TO AFFECTED AREA TWICE A DAY FOR 1 WEEK norethindrone (Micronor) 0.35 MG tablet Take 1 tablet (0.35 mg) by mouth daily. 28 tablet 12 buPROPion XL (Wellbutrin XL) 300 MG 24 hr tablet Take 1 tablet (300 mg) by mouth every morning. Do not crush, chew, or split. 90 tablet 0 FLUoxetine (PROzac) 10 MG capsule Take 1 capsule (10 mg) by mouth daily. 90 capsule 0 No facility-administered medications prior to visit. Past Medical History: Diagnosis Date Amenorrhea 06/17/2018 Anxiety BMI 35.0-35.9,adult 05/13/2018 Carpal tunnel syndrome, left SCHEDULED FOR THE SURGERY ON 07/20/21 [facility] Depression Dysplasia of cervix, low grade (TALISHA 1) 06/17/2018 Ear infection 2023 Elevated prolactin level 07/15/2018 Gastric ulcer PCOS (polycystic ovarian syndrome) 06/17/2018 Pelvic pain in female 02/04/2018 PONV (postoperative nausea and vomiting) Pure hypercholesterolemia 01/03/2023 Sinus infection 2023 Social History Tobacco Use Smoking status: Never Passive exposure: Never Smokeless tobacco: Never Substance Use Topics Alcohol use: Yes Past Surgical History: Procedure Laterality Date CARPAL TUNNEL RELEASE Left 06/2021 SALPINGECTOMY W REMOVAL OF ECTOPIC (HISTORICAL) 2017 UPPER GASTROINTESTINAL ENDOSCOPY 2016 WISDOM TOOTH EXTRACTION Family History Problem Relation Name Age of Onset Diabetes Mother Mom Heart disease Mother Mom Mental illness Mother Mom High Blood Pressure Father Dad Alcohol abuse Father Dad Diabetes Father Dad No Known Problems Sister No Known Problems Brother Cancer Maternal Grandmother Grandma on Mom's side gallbladder Other (53334) Maternal Grandfather Dementia Other (30956) Paternal Grandmother Grandmother on Father's side glaucoma, URI Depression Paternal Grandmother Grandmother on Father's side Diabetes Paternal Grandmother Grandmother on Father's side Other (517[address]) Paternal Grandfather COPD Diabetes Father's Sister Aunt No Known Problems Other Lung cancer Mother's Sister smoker Objective BP 112/68 Pulse 91 Temp 36.5 C (97.7 F) Wt 181 lb 4.8 oz (82.2 kg) LMP 12/09/2024 SpO2 100% BMI 32.12 kg/m Physical Exam Constitutional: Appearance: Normal appearance. She is normal weight. Cardiovascular: Rate and Rhythm: Normal rate and regular rhythm. Pulses: Normal pulses. Heart sounds: Normal heart sounds. No murmur heard. No friction rub. No gallop. Pulmonary: Effort: Pulmonary effort is normal. No respiratory distress. Breath sounds: Normal breath sounds. No stridor. Musculoskeletal: General: No swelling, tenderness or signs of injury. Cervical back: Normal range of motion and neck supple. No rigidity or tenderness. Right lower leg: No edema. Left lower leg: No edema. Lymphadenopathy: Cervical: No cervical adenopathy. Skin: General: Skin is warm and dry. Capillary Refill: Capillary refill takes less than 2 seconds. Findings: Rash present. Comments: Scaling and red Neurological: General: No focal deficit present. Mental Status: She is alert and oriented to person, place, and time. Mental status is at baseline. Motor: No weakness. Coordination: Coordination normal. Gait: Gait normal. Deep Tendon Reflexes: Reflexes normal. Psychiatric: Mood and Affect: Mood normal. Behavior: Behavior normal. Thought Content: Thought content normal. Judgment: Judgment normal. Data Reviewed and Summarized Labs: Imaging/Testing: María Keyes MD documented in this encounter [facility] 11-03-2024 Telephone encounter Note Lvm on phone and sent mychart message that pt will need an appointment within 3 months. If pt calls, can schedule with Ramandeep Lau but will need a second appointment to est care with DR eKyes. [facility] 11-03-2024 Miscellaneous Notes Lvm on phone and sent mychart message that pt will need an appointment within 3 months. If pt calls, can schedule with Ramandeep Lau but will need a second appointment to est care with DR Keyes. documented in this encounter [facility] 03-31-2024 Telephone encounter Note Tried to call patient and sent MyChart message. This is fifth attempt. [facility] 03-31-2024 Miscellaneous Notes Tried to call patient and sent MyChart message. This is fifth attempt. Left message for patient to call back if still interested in scheduling surgery with Dr. Michelle Campos. Previously have sent three MyChart messages asking if patient was interested in scheduling her surgery. documented in this encounter [facility] 03-04-2024 Telephone encounter Note Left message for patient to call back if still interested in scheduling surgery with Dr. Michelle Campos. Previously have sent three MyChart messages asking if patient was interested in scheduling her surgery. [facility] 01-23-2024 History of Presen t illness Narrative COLPOSCOPY: Pre-operative Diagnosis: neg pap with +other HPV in Oct Post-operative Diagnosis: Same Cervical History: hx of TALISHA 1 in 2017 Procedure: Colposcopy Surgeon: Michelle Campos MD Pre-Colposcopy consent signed. Possible risks explained to patient who states she understands. test as negative. Estimated Blood Loss: Minimal Complications: none Specimens: ECC Findings: no visible lesions Procedure: A speculum was placed into the vagina and the cervix was easily visualized. Acetic acid was applied to the cervix. The entire squamocolumnar junction was not seen. A biopsy was not done. An endocervical curettage was done. Silver nitrate was not used. Monsels paste was not needed. Hemostasis confirmed. Satisfactory: No Assessment: normal cervix Instructions: Will notify patient of results. Plan will be dependent on biopsy result. Advised no intercourse for a week if external biopsy taken. Michelle Campos M.D. 01/23/2024 at 12:01 PM (Electronically Signed) documented in this encounter [facility] 01-19-2024 Evaluation + Plan note Associated Problem(s): Mass of upper inner quadrant of left breast New, small 2mm mass, will send for diagnostic mammogram [facility] 01-19-2024 Miscellaneous Notes Associated Problem(s): Mass of upper inner quadrant of left breast New, small 2mm mass, will send for diagnostic mammogram Associated Problem(s): Moderate episode of recurrent major depressive disorder (HCC) Chronic, controlled, ccm wellbutrin, prozac Associated Problem(s): Generalized anxiety disorder Chronic, improved ccm wellbutrin, prozac Last 3 LELE-7 Scores 01/16/2024 1100 11/21/2023 0900 LELE-7 Total Score: 0 4 Last 3 PHQ-2 Scores 01/16/2024 1101 11/21/2023 0922 Patient Health Questionnaire-2 Score: 0 0 Last 3 PHQ-9 Scores 01/16/2024 1101 11/21/2023 0922 Patient Health Questionnaire-9 Score: 1 1 documented in this encounter [facility] 01-19-2024 Evaluation + Plan note Associated Problem(s): Moderate episode of recurrent major depressive disorder (HCC) Chronic, controlled, ccm wellbutrin, prozac [facility] 01-19-2024 Evaluation + Plan note Associated Problem(s): Generalized anxiety disorder Chronic, improved ccm wellbutrin, prozac Last 3 LELE-7 Scores 01/16/2024 1100 11/21/2023 0900 LELE-7 Total Score: 0 4 Last 3 PHQ-2 Scores 01/16/2024 1101 11/21/2023 0922 Patient Health Questionnaire-2 Score: 0 0 Last 3 PHQ-9 Scores 01/16/2024 1101 11/21/2023 09 Patient Health Questionnaire-9 Score: 1 1 [facility] 01-16-2024 History of Presen t illness Narrative Images from the original note were not included. [facility] [address] [facility] [id number] Dept: [phone] Dept Loc: [phone] Visit type: Established patient Reason for Visit: Follow-up Assessment and Plan 1. Mass of upper inner quadrant of left breast Assessment & Plan: New, small 2mm mass, will send for diagnostic mammogram Orders: - Bilateral diagnostic mammogram 2. Current mild episode of major depressive 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 (HCC) - buPROPion XL (Wellbutrin XL) 300 MG 24 hr tablet; Take 1 tablet (300 mg) by mouth every morning. Do not crush, chew, or split., Starting 01/16/2024, Until Sun07/14/2024, Normal 3. LELE (generalized anxiety disorder) Assessment & Plan: Chronic, improved ccm wellbutrin, prozac Last 3 LELE-7 Scores 01/16/2024 1100 11/21/2023 0900 LELE-7 Total Score: 0 4 Last 3 PHQ-2 Scores 01/16/2024 1101 11/21/2023 0922 Patient Health Questionnaire-2 Score: 0 0 Last 3 PHQ-9 Scores 01/16/2024 1101 11/21/2023 0922 Patient Health Questionnaire-9 Score: 1 1 Orders: - FLUoxetine (PROzac) 10 MG capsule; Take 1 capsule (10 mg) by mouth daily., Starting Sun01/16/2024, Until Sun07/14/2024, Normal No follow-ups on file. Subjective Pt is here for follow up mental health, doing very well with current regimen Wellbutrin and Prozac, has been taking Vitamin d taking 5000 international unit will get labs today New complaint today, small fibrous lump to left breast, not painful, mobile has been present for about 1 month Review of Systems Constitutional: Negative for chills, fatigue and fever. HENT: Negative for congestion, rhinorrhea, sinus pressure and sinus pain. Voice change: diagnostic mamogram. Respiratory: Negative for cough, shortness of breath and wheezing. Cardiovascular: Negative for chest pain and palpitations. Gastrointestinal: Negative for abdominal distention, abdominal pain, blood in stool, constipation and diarrhea. Genitourinary: Negative for difficulty urinating and hematuria. Musculoskeletal: Negative for arthralgias, back pain and myalgias. Neurological: Negative for dizziness, light-headedness and headaches. Psychiatric/Behavioral: Negative for dysphoric mood, self-injury and suicidal ideas. The patient is not nervous/anxious. Allergies Allergen Reactions Oseltamivir Hives, Nausea And Vomiting and Rash Outpatient Medications Prior to Visit Medication Sig Dispense Refill norethindrone (Micronor) 0.35 MG tablet Take 1 tablet (0.35 mg) by mouth daily. 28 tablet 12 buPROPion XL (Wellbutrin XL) 300 MG 24 hr tablet Take 1 tablet (300 mg) by mouth every morning. Do not crush, chew, or split. 90 tablet 0 FLUoxetine (PROzac) 10 MG capsule Take 1 capsule (10 mg) by mouth daily. 90 capsule 0 oxymetazoline (Afrin) 0.05 % nasal spray Administer 2 sprays into each nostril every 12 hours as needed for congestion for up to 3 days. Do not use for more than 3 days. 30 mL 0 Phenazopyridine HCl (PYRIDIUM PO) Take by mouth. No facility-administered medications prior to visit. Past Medical History: Diagnosis Date Amenorrhea 06/17/2018 Anxiety BMI 35.0-35.9,adult 05/13/2018 Carpal tunnel syndrome, left SCHEDUL[facility] FOR [facility] SURGERY [facility] Depression Dysplasia of cervix, low grade (TALISHA 1) 06/17/2018 Ear infection 2023 Elevated prolactin level 07/15/2018 Gastric ulcer PCOS (polycystic ovarian syndrome) 06/17/2018 Pelvic pain in female 02/04/2018 PONV (postoperative nausea and vomiting) Pure hypercholesterolemia 01/03/2023 Sinus infection 2023 Social History Tobacco Use Smoking status: Never Passive exposure: Never Smokeless tobacco: Never Substance Use Topics Alcohol use: Yes Past Surgical History: Procedure Laterality Date CARPAL TUNNEL RELEASE Left 06/2021 SALPINGECTOMY W REMOVAL OF ECTOPIC (HISTORICAL) 2018 UPPER GASTROINTESTINAL ENDOSCOPY 2016 WISDOM TOOTH EXTRACTION Family History Problem Relation Name Age of Onset Other (89144) Paternal Grandmother Grandmother on Father's side glaucoma, URI Depression Paternal Grandmother Grandmother on Father's side Diabetes Paternal Grandmother Grandmother on Father's side Other (99735) Maternal Grandfather Dementia Diabetes Mother Mom Heart disease Mother Mom Mental illness Mother Mom Other ([id number]) Paternal Grandfather COPD No Known Problems Other Cancer Maternal Grandmother Grandma on Mom's side gallbladder High Blood Pressure Father Dad Alcohol abuse Father Dad Diabetes Father Dad Diabetes Father's Sister Aunt No Known Problems Sister No Known Problems Brother Objective BP 118/70 (BP Location: Right arm, Patient Position: Sitting, BP Cuff Size: Adult) Pulse 90 Ht 5' 3 (1.6 m) Wt 182 lb 9.6 oz (82.8 kg) LMP 12/21/2023 SpO2 100% BMI 32.35 kg/m Physical Exam Constitutional: Appearance: Normal appearance. HENT: Head: Normocephalic and atraumatic. Right Ear: External ear normal. Left Ear: External ear normal. Nose: Nose normal. Eyes: Conjunctiva/sclera: Conjunctivae normal. Pupils: Pupils are equal, round, and reactive to light. Cardiovascular: Rate and Rhythm: Normal rate and regular rhythm. Heart sounds: Normal heart sounds. Pulmonary: Effort: Pulmonary effort is normal. Breath sounds: Normal breath sounds. Chest: Abdominal: General: Bowel sounds are normal. There is no distension. Palpations: Abdomen is soft. Tenderness: There is no abdominal tenderness. Musculoskeletal: General: Normal range of motion. Cervical back: Normal range of motion. Skin: General: Skin is warm and dry. Neurological: General: No focal deficit present. Mental Status: She is alert and oriented to person, place, and time. Psychiatric: Mood and Affect: Mood normal. Behavior: Behavior normal. Data Reviewed and Summarized Labs: Imaging/Testing: JULIO CESAR Caldwell CNP Dictated using Bright[employer]est Version 2.4 Document has been proof read for accuracy; however unrecognized voice recognition errors may have occurred. documented in this encounter [facility] 11-28-2023 History of Presen t illness Narrative Chief Complaint Patient presents with Follow-up HPI: Patient here for MO for trich found on STD screening at annual She took the medication, no issues, no symptoms History: Past Medical History: Diagnosis Date Amenorrhea 06/17/2018 Anxiety BMI 35.0-35.9,adult 05/13/2018 Carpal tunnel syndrome, left SCHEDULED FOR THE SURGERY ON 07/20/21 AT [facility] Depression Dysplasia of cervix, low grade (TALISHA 1) 06/17/2018 Ear infection 2023 Elevated prolactin level 07/15/2018 Gastric ulcer PCOS (polycystic ovarian syndrome) 06/17/2018 Pelvic pain in female 02/04/2018 PONV (postoperative nausea and vomiting) Pure hypercholesterolemia 01/03/2023 Sinus infection 2023 Past Surgical History: Procedure Laterality Date CARPAL TUNNEL RELEASE Left 06/2021 SALPINGECTOMY W REMOVAL OF ECTOPIC (HISTORICAL) 2017 UPPER GASTROINTESTINAL ENDOSCOPY 2016 WISDOM TOOTH EXTRACTION Exam: Physical Exam Genitourinary: General: Normal vulva. Vagina: Normal. Cervix: Normal. Assessment and Plan: Elana was seen today for follow-up. Diagnoses and all orders for this visit: Trichomonas infection (Primary) - Trichomonas vaginalis DNA probe; Future - Trichomonas vaginalis DNA probe HPV in female MO collected today Reviewed her pap result, needs colpo for HPV, will get this done prior to tubal because if needs an excision procedure, then it could be done at the same time as tubal. documented in this encounter [facility] 11-28-2023 Miscellaneous Notes Addended by: ROBI MOSLEY on: 11/28/2023 03:38 PM Modules accepted: Orders Addended by: MICHELLE CAMPOS on: 11/28/2023 03:42 PM Modules accepted: Orders documented in this encounter [facility] 11-28-2023 Note Addended by: ROBI MOSLEY on: 11/28/2023 03:38 PM Modules accepted: Orders [facility] 11-28-2023 Note Addended by: MICHELLE CAMPOS on: 11/28/2023 03:42 PM Modules accepted: Orders [facility] 11-28-2023 Note Addended by: ROBI MOSLEY on: 11/28/2023 03:38 PM Modules accepted: Orders [facility] 11-28-2023 Note Addended by: MICHELLE CAMPOS on: 11/28/2023 03:42 PM Modules accepted: Orders [facility] 11-28-2023 Note Addended by: ROBI MOSLEY on: 11/28/2023 03:38 PM Modules accepted: Orders [facility] 11-28-2023 Note Addended by: MICHELLE CAMPOS on: 11/28/2023 03:42 PM Modules accepted: Orders [facility] 11-26-2023 History of Presen t illness Narrative Images from the original note were not included. [facility] [address] [facility] [facility] [address] Dept: [phone] Dept Loc: [phone] Subjective Elana Witt is a 32 y.o. year old who presents to the office with the following complaint(s): Chief Complaint Patient presents with Female Dysuria Subjective HPI: Patient presents to the urgent care today with complaints of urgency, dysuria and frequency. Patient reports that her symptoms started approximately 2 to 3 days ago. She denies any fever or chills. She denies any back pain. She denies any flank pain. She denies any nausea vomiting or diarrhea. Review of Systems Constitutional: Negative. HENT: Negative. Eyes: Negative. Respiratory: Negative. Cardiovascular: Negative. Gastrointestinal: Negative. Endocrine: Negative. Genitourinary: Positive for dysuria, frequency and urgency. Musculoskeletal: Negative. Skin: Negative. Allergic/Immunologic: Negative. Neurological: Negative. Hematological: Negative. Psychiatric/Behavioral: Negative. Allergies Allergen Reactions Oseltamivir Hives, Nausea And Vomiting and Rash Current Outpatient Medications on File Prior to Visit Medication Sig Dispense Refill buPROPion XL (Wellbutrin XL) 300 MG 24 hr tablet Take 1 tablet (300 mg) by mouth every morning. Do not crush, chew, or split. 90 tablet 0 ergocalciferol (Vitamin D-2) 1.25 MG (80838 UT) capsule Take 1 capsule (1.25 mg) by mouth 1 (one) time per week. 12 capsule 0 FLUoxetine (PROzac) 10 MG capsule Take 1 capsule (10 mg) by mouth daily. 90 capsule 0 norethindrone (Micronor) 0.35 MG tablet Take 1 tablet (0.35 mg) by mouth daily. 28 tablet 12 oxymetazoline (Afrin) 0.05 % nasal spray Administer 2 sprays into each nostril every 12 hours as needed for congestion for up to 3 days. Do not use for more than 3 days. 30 mL 0 No current facility-administered medications on file prior to visit. Patient Active Problem List Diagnosis PCOS (polycystic ovarian syndrome) BMI 35.0-35.9,adult Dysplasia of cervix, low grade (TALISHA 1) Pure hypercholesterolemia Current mild episode of major depressive 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 (HCC) LELE (generalized anxiety disorder) Moderate episode of recurrent major depressive disorder (HCC) Social History Tobacco Use Smoking status: Never Passive exposure: Never Smokeless tobacco: Never Substance Use Topics Alcohol use: Yes Objective Objective BP 117/72 Pulse 77 Temp 36.8 C (98.2 F) LMP 11/19/2023 (Exact Date) Physical Exam Vitals and nursing note reviewed. Constitutional: Appearance: Normal appearance. Abdominal: General: Bowel sounds are normal. Palpations: Abdomen is soft. Tenderness: There is no abdominal tenderness. There is no right CVA tenderness or left CVA tenderness. Skin: General: Skin is warm and dry. Capillary Refill: Capillary refill takes less than 2 seconds. Neurological: General: No focal deficit present. Mental Status: She is alert and oriented to person, place, and time. Psychiatric: Mood and Affect: Mood normal. Speech: Speech normal. Behavior: Behavior normal. Behavior is cooperative. Assessment/Plan 1. Dysuria - AMB POC URINALYSIS DIP STICK AUTO W/O MICRO - AMB POC URINE TEST 2. Cystitis with hematuria - Urine culture - cephalexin (Keflex) 500 MG capsule; Take 1 capsule (500 mg) by mouth 2 times daily for 7 days., Starting Sun11/26/2023, Until Sun12/03/2023, Normal Urinalysis positive for leukocytosis and hematuria. Patient will be started on Keflex given her symptoms. Urine test negative here at the urgent care. Urine culture will be sent. Patient's wellbeing is stable at this time. Patient is agreeable with plan and is cooperative with discharge at this time. Patient has been given information on their currently diagnosed illness from this visit as well as any other pertinent information based on their visit at this time. Pt has been educated on medications pertinent to this visit. Please see AVS. (Please note that portions of this note may have been completed with a voice recognition program. Efforts were made to edit the dictations but occasionally words aremis-transcribed.) All questions were answered during evaluation as verbalized by the patient during encounter. If symptoms do not improve, worsen, or new symptoms develop, see PCP for further evaluation. JULIO CESAR Etienne NP 11/26/2023 4:09 PM documented in this encounter [facility] 10-31-2023 History of Presen t illness Narrative Elana Witt 10/31/[birth year]23 32 y.o. Primary Care Physician: Edwardo Beckett Chief Complaint Patient presents with Annual Exam LA/PAP 08/17/20, no c/o HPI : Elana Witt is a 32 y.o. female here for annual exam. Just finalizing a divorce, new relationship, would like STD testing and to discuss getting a tubal sterilization Gynecologic History: Patient's last menstrual period was 10/17/2023 (exact date). Menses are regular. Menses occur every regular every 28-30 days. Flow is moderate Intermenstrual bleeding: no Dysmenorrhea:none Sexually Active: Yes Dyspareunia: No Contraception: no method Preventative Health Testing: Date of Last Pap Smear: neg pap 07/2020 Abnormal Pap Smear History: TALISHA 1 in 2018 OB History Para Term AB Living 1 0 0 0 1 0 SAB IAB Ectopic Multiple Live Births 0 0 1 0 0 # Outcome Date GA Lbr Juan Antonio/2nd Weight Sex Delivery Anes PTL Lv 1 Ectopic 2018 [facility] Past Medical History: Diagnosis Date Amenorrhea 06/17/2018 Anxiety BMI 35.0-35.9,adult 05/13/2018 Carpal tunnel syndrome, left SCHEDULED FOR THE SURGERY ON [facility]/21 [facility] Depression Dysplasia of cervix, low grade (TALISHA 1) 06/17/2018 Ear infection 2023 Elevated prolactin level 07/15/2018 Gastric ulcer PCOS (polycystic ovarian syndrome) 06/17/2018 Pelvic pain in female 02/04/2018 PONV (postoperative nausea and vomiting) Pure hypercholesterolemia 01/03/2023 Sinus infection 2023 Past Surgical History: Procedure Laterality Date CARPAL TUNNEL RELEASE Left 06/2021 SALPINGECTOMY W REMOVAL OF ECTOPIC (HISTORICAL) 2017 UPPER GASTROINTESTINAL ENDOSCOPY 2016 WISDOM TOOTH EXTRACTION Family History Problem Relation Name Age of Onset Other (98651) Paternal Grandmother Grandmother on Father's side glaucoma, URI Depression Paternal Grandmother Grandmother on Father's side Diabetes Paternal Grandmother Grandmother on Father's side Other ([id number]) Maternal Grandfather Dementia Diabetes Mother Mom Heart disease Mother Mom Mental illness Mother Mom Other (47220) Paternal Grandfather COPD No Known Problems Other Cancer Maternal Grandmother Grandma on Mom's side gallbladder High Blood Pressure Father Dad Alcohol abuse Father Dad Diabetes Father Dad Diabetes Father's Sister Aunt No Known Problems Sister No Known Problems Brother MEDICATIONS: Current Outpatient Medications Medication Sig Dispense Refill buPROPion XL (Wellbutrin XL) 300 MG 24 hr tablet Take 1 tablet (300 mg) by mouth every morning. Do not crush, chew, or split. 90 tablet 0 ergocalciferol (Vitamin D-2) 1.25 MG (81994 UT) capsule Take 1 capsule (1.25 mg) by mouth 1 (one) time per week. 12 capsule 0 norethindrone (Micronor) 0.35 MG tablet Take 1 tablet (0.35 mg) by mouth daily. 28 tablet 12 oxymetazoline (Afrin) 0.05 % nasal spray Administer 2 sprays into each nostril every 12 hours as needed for congestion for up to 3 days. Do not use for more than 3 days. 30 mL 0 No current facility-administered medications for this visit. ALLERGIES: Allergies as of 10/31/2023 - Reviewed 10/31/2023 Allergen Reaction Noted Oseltamivir Hives, Nausea And Vomiting, and Rash 07/02/2017 REVIEW OF SYSTEMS: CONSTIUTIONAL: No weight change or fatigue. No fever or chills. No changes in appetite. CV: No chest pain, palpitations, or syncope. RESPIRATORY: No SOB, cough, or wheezing. BREAST: No breast abnormalities or lumps. GI: No nausea, vomiting, diarrhea, constipation, bloating or bowel changes. No blood or mucous with bowel movements or melena. : No dysuria, frequency, hesitancy, urgency. No urinary incontinence. No vaginal discharge, odor, or itch. No dyspareunia. NEURO: No weakness or sensory changes MUSCULOSKELETAL: No back pain or arthralgias. HEME and LYMPH : No lymphoma or abnormal bleeding history PHYSICAL EXAM: Vitals: 10/31/23 1351 BP: 120/72 Pulse: 72 Weight: 179 lb 3.2 oz (81.3 kg) Body mass index is 31.74 kg/m . GENERAL EXAM CONSTITUTIONAL: well developed, well nourished, well groomed, no acute distress NECK: no thyromegaly, supple CARDIOVASCULAR: normal rate, no edema LUNGS: normal effort ABDOMEN: soft, non-tender, non-distended NEUROLOGICAL: no gross motor or sensory deficits noted MUSCULOSKETAL: normal gait, no cyanosis PSYCHIATRIC: normal mood and affect, A&O x3 DIRECTOR OF REHABILITATION EXAM: BREASTS: normal, no masses, tenderness or skin changes EXTERNAL GENITALIA: normal female structures VAGINA: normal ruggae, no lesions CERVIX: no lesions, no cervical motion tenderness, normal appearance UTERUS: normal mobility, nontender, normal size, shape and consistency ADNEXA: normal, non tender no masses URETHRA: normal. nontender BLADDER: non tender PELVIC SUPPORT DEFECTS: normal support of vagina, uterus, and bladder ANUS/PERINEUM: no hemorrhoids, masses or warts noted ASSESSMENT/PLAN: Elana was seen today for annual exam. Diagnoses and all orders for this visit: Encounter for gynecological examination without abnormal finding (Primary) Screening for cervical cancer - Pap Smear Encounter for initial prescription of contraceptive pills - norethindrone (Micronor) 0.35 MG tablet; Take 1 tablet (0.35 mg) by mouth daily. Screen for STD (sexually transmitted disease) - Sureswab(R) Advanced Vaginitis Plus, TMA ([facility]) Encounter for sterilization Follow up in about 1 year (around 10/31/2024) for annual. control and STD prevention reviewed. STD swab collected at patient request. Discussed Gardasil vaccine. Discussed pap guidelines and routine gynecologic preventative care/screening. Self breast exam discussed. Weight management through healthy diet and regular exercise reviewed. Advised use of MVI and vit D supplementation, calcium through diet if able. Routine health maintenance per patient's PCP as well. Today we discussed the risks, benefits, and consequences of tubal sterilization via laparoscopic salpingectomy as well as non-permanent alternatives. Laparoscopic salpingectomy is commonly done for sterilization purposes and involves removal of all or part of the tube instead of placing clips or fulgurating or excision a portion of the tube. This is done to remove the fimbriated ends of the tubes and reduce future risk of tubal cancers as well as reduces the future risk of tubal pregnancies as the tubes are not present. If there is significant scarring, it may not be possible to remove the entire tube, but rather just a portion of the tube. This would still be effective for sterilization, but may not confer the same reduction in tubal or tubal cancers as a full salpingectomy would. I explained the risks of laparoscopic tubal sterilization with salpingectomy includes, but is not limited to, injury to the bowel, bladder, ureters, blood vessels, and nerves. We discussed the possibility of excessive blood loss, transfusion, infection and unplanned laparotomy. One of the biggest risks is personal regret in the future. She understands the permanent and non-reversible nature of the procedure and should be 100% sure she does not wish to bear any more children. The basic steps of the operation were discussed, including the use of carbon dioxide for distention of the abdominal cavity and the placement of the ports. I also explained the usual pre-operative preparation and post-operative expectations including pain and activity restrictions. We also discussed the use of pain medications. We discussed highly effective, reversible alternatives such as Nexplanon and IUDs, that are long acting, require no maintenance once placed, and that would allow her to retain fertility should she change her mind in the future. She was allowed to ask questions freely and they were answered fully and to her satisfaction. She no longer desires fertility and wishes to proceed with permanent sterilization. She would like contraception until tubal, discussed risks and benefits for both progesterone only and combined pills, patient would like to do POPs until surgery, will send rx for Kathy. Michelle Campos M.D. 10/31/2023 at 3:00 PM (Electronically Signed) documented in this encounter [facility] 10-31-2023 Miscellaneous Notes Addended by: MICHELLE CAMPOS on: 10/31/2023 04:05 PM Modules accepted: Orders documented in this encounter [facility] 10-31-2023 Note Addended by: MICHELLE CAMPOS on: 10/31/2023 04:05 PM Modules accepted: Orders [facility] 10-31-2023 Note Addended by: MICHELLE CAMPOS on: 10/31/2023 04:05 PM Modules accepted: Orders [facility] 10-12-2023 History of Presen t illness Narrative Subjective: Patient: Elana Witt is a 32 y.o. female Patient presents to urgent care today with concerns for chills, productive cough, nasal drainage, ear pain, sinus pain and pressure, sore throat x 5 days. Patient was seen in PCPs office 2 days ago and tested negative for COVID and flu. At that visit patient was given Sudafed and Afrin. Patient has been taking Sudafed, Afrin, Mucinex, Zyrtec, and Flonase at home with little relief. Patient denies fever, shortness of breath, chest pain, nausea, vomiting, diarrhea. Patient able to speak in full complete sentences today in office and manage secretions appropriately. Patient is not in respiratory distress. Review of Systems Constitutional: Positive for chills and fatigue. Negative for fever. HENT: Positive for congestion, ear pain, rhinorrhea, sinus pressure, sinus pain and sore throat. Negative for ear discharge and trouble swallowing. Respiratory: Positive for cough. Negative for chest tightness, shortness of breath and wheezing. Cardiovascular: Negative for chest pain and palpitations. Gastrointestinal: Negative for diarrhea, nausea and vomiting. Neurological: Negative for dizziness, syncope, weakness, light-headedness and headaches. Allergies Allergen Reactions Oseltamivir Hives, Nausea And Vomiting and Rash Current Outpatient Medications on File Prior to Visit Medication Sig Dispense Refill buPROPion XL (Wellbutrin XL) 300 MG 24 hr tablet Take 1 tablet (300 mg) by mouth every morning. Do not crush, chew, or split. 90 tablet 0 oxymetazoline (Afrin) 0.05 % nasal spray Administer 2 sprays into each nostril every 12 hours as needed for congestion for up to 3 days. Do not use for more than 3 days. 30 mL 0 [DISCONTINUED] pseudoephedrine (Sudafed) 30 MG tablet Take 1 tablet (30 mg) by mouth every 4 hours as needed for congestion for up to 10 days. 30 tablet 0 [DISCONTINUED] buPROPion XL (Wellbutrin XL) 150 MG 24 hr tablet Take 1 tablet (150 mg) by mouth every morning. Do not crush, chew, or split. 90 tablet 3 [DISCONTINUED] oxymetazoline (Afrin Nasal Thornton) 0.05 % nasal spray Administer 2 sprays into each nostril every 12 hours as needed for congestion for up to 2 days. Do not use for more than 3 days. 30 mL 0 [DISCONTINUED] triamcinolone (Kenalog) 0.1 % ointment No current facility-administered medications on file prior to visit. Past Medical History: Diagnosis Date Amenorrhea 06/17/2018 Anxiety BMI 35.0-35.9,adult 05/13/2018 Carpal tunnel syndrome, left SCHEDULED FOR THE SURGERY ON 07/20/21 AT [facility] Depression Dysplasia of cervix, low grade (TALISHA 1) 06/17/2018 Elevated prolactin level 07/15/2018 Gastric ulcer PCOS (polycystic ovarian syndrome) 06/17/2018 Pelvic pain in female 02/04/2018 PONV (postoperative nausea and vomiting) Pure hypercholesterolemia 01/03/2023 Social History Tobacco Use Smoking status: Never Passive exposure: Never Smokeless tobacco: Never Substance Use Topics Alcohol use: Yes Objective: BP 138/81 (BP Location: Right arm, Patient Position: Sitting, BP Cuff Size: Adult) Pulse 87 Temp 36.7 C (98 F) Ht 5' 3 (1.6 m) Wt 183 lb (83 kg) LMP 09/17/2023 (Exact Date) SpO2 100% BMI 32.42 kg/m Physical Exam Vitals reviewed. Constitutional: General: She is awake. She is not in acute distress. Appearance: Normal appearance. She is normal weight. She is not ill-appearing or toxic-appearing. HENT: Right Ear: Tympanic membrane, ear canal and external ear normal. Left Ear: Ear canal and external ear normal. Tympanic membrane is erythematous and bulging. Nose: Rhinorrhea present. Rhinorrhea is purulent. Right Sinus: Maxillary sinus tenderness present. No frontal sinus tenderness. Left Sinus: Maxillary sinus tenderness present. No frontal sinus tenderness. Mouth/Throat: Mouth: Mucous membranes are moist. Pharynx: Oropharynx is clear. Uvula midline. Posterior oropharyngeal erythema present. No oropharyngeal exudate. Tonsils: No tonsillar exudate or tonsillar abscesses. 3+ on the right. 3+ on the left. Cardiovascular: Rate and Rhythm: Normal rate and regular rhythm. Pulmonary: Effort: Pulmonary effort is normal. Breath sounds: Normal breath sounds. Musculoskeletal: General: Normal range of motion. Skin: General: Skin is warm and dry. Neurological: General: No focal deficit present. Mental Status: She is alert and oriented to person, place, and time. Mental status is at baseline. Psychiatric: Mood and Affect: Mood normal. Behavior: Behavior normal. Behavior is cooperative. Thought Content: Thought content normal. Judgment: Judgment normal. Assessment 1. Sore throat 2. URI with cough and congestion 3. Other non-recurrent acute nonsuppurative otitis media of left ear Plan Diagnoses and all orders for this visit: Sore throat - AMB POC STREP GO A DIRECT, DNA PROBE URI with cough and congestion - AMB POC COVID-19 COV - upmllblhibboydw-jdwjotdxkqiccli-RY 30-2-10 MG/5ML syrup; Take 5 mL by mouth 3 times daily as needed for congestion, cough or allergies for up to 7 days. - predniSONE (Deltasone) 20 MG tablet; Take 2 tablets (40 mg) by mouth daily for 5 days. Other non-recurrent acute nonsuppurative otitis media of left ear - amoxicillin-clavulanate (Augmentin) 875-125 MG tablet; Take 1 tablet by mouth 2 times daily for 7 days. Other orders - fluconazole (Diflucan) 150 MG tablet; Take 1 tablet (150 mg) by mouth daily for 1 day. Repeat COVID test was performed as requested by [facility]. COVID test negative. Strep test negative. Patient started on Augmentin for left otitis media infection. Patient given the above medications for symptom relief. Educated patient about medications prescribed today in office and education provided in AVS. Patient given Diflucan at today's visit for frequent yeast infections with antibiotic use. Educated patient to rest, increase p.o. fluid intake, and utilize Tylenol at home as needed. Educated patient to follow-up with PCP or proceed to ER for worsening or persistent symptoms. Patient understands and agreeable to treatment plan. Tierney Law NP 10/12/23 1:06 PM If symptoms do not improve, worsen, or new symptoms develop, see PCP for further evaluation. documented in this encounter [facility] 10-10-2023 History of Presen t illness Narrative Images from the original note were not included. [facility] [address] [facility] [address] Dept: [phone] Dept Loc: [phone] Visit type: Established patient Reason for Visit: New Patient Assessment and Plan 1. Annual physical exam Comments: Reveiwed managment of chronic conditions, health maintainance and health choices Orders: - Comprehensive metabolic panel - TSH - Lipid panel - Hemoglobin A1c - CBC - Vitamin D Deficiency Screening (Vit D 25) 2. LELE (generalized anxiety disorder) Comments: Chronic,uncontrolled will trial increase wellbutrin 3. Current mild episode of major depressive 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 (HCC) - buPROPion XL (Wellbutrin XL) 300 MG 24 hr tablet; Take 1 tablet (300 mg) by mouth every morning. Do not crush, chew, or split., Starting Sun10/10/2023, Until Sun01/08/2024, Normal 4. Generalized anxiety disorder Comments: Chronic, uncontrolled will increase wellbutrin, consider psychiatry Orders: - buPROPion XL (Wellbutrin XL) 300 MG 24 hr tablet; Take 1 tablet (300 mg) by mouth every morning. Do not crush, chew, or split., Starting Sun10/10/2023, Until Sun01/08/2024, Normal 5. Viral upper respiratory tract infection Comments: Acute, negative for flu/covid can try afrin/sudafed. Orders: - oxymetazoline (Afrin) 0.05 % nasal spray; Administer 2 sprays into each nostril every 12 hours as needed for congestion for up to 3 days. Do not use for more than 3 days., Starting Sun10/10/2023, Until 10/13/2023 at 2359, Normal 6. Exposure to COVID-19 virus - AMB POC RAPID INFLUENZA DNA/RNA - AMB POC COVID-19 COV Follow up for 6 weeks mental health, needs PCP establish. . Zachariah Huitron is here to establish with office. has not made appointment to establish with PCP. [facility] for [facility], no annual physical. -Last PCP: BENNIE today? Additional Concerns: congestion/sore throat x several days Wellbutrin, would like to increase dosage, Started 1 year ago, feeling bouts of increased depression. 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 BMI: 32.42 BP: 106/72 Health Goals: mental health, new doctor. Nicotine use: denies Recreational Drugs: denies ETOH use: social 1 to 2 times in a month, 1 glass wine Concerns for STI: denies Last seen: Dentist: looking for one Routine eye exam: looking for eye exam Television Anchor: appointment scheduled to establish Mammogram: at 39 Other Specialist: Brett the councelor for anxiety/depression every other week for 6 months. Review of Systems Constitutional: Negative for chills and fever. HENT: Positive for congestion and sore throat. Respiratory: Positive for cough. Negative for shortness of breath. Cardiovascular: Negative for chest pain and palpitations. Gastrointestinal: Negative for abdominal distention, anal bleeding, constipation and diarrhea. Genitourinary: Negative for difficulty urinating and enuresis. Musculoskeletal: Negative for arthralgias and gait problem. Neurological: Positive for headaches. Negative for dizziness and light-headedness. Psychiatric/Behavioral: Positive for dysphoric mood. Negative for self-injury, sleep disturbance and suicidal ideas. The patient is nervous/anxious. Allergies Allergen Reactions Oseltamivir Hives, Nausea And Vomiting and Rash Outpatient Medications Prior to Visit Medication Sig Dispense Refill buPROPion XL (Wellbutrin XL) 150 MG 24 hr tablet Take 1 tablet (150 mg) by mouth every morning. Do not crush, chew, or split. 90 tablet 3 oxymetazoline (Afrin Nasal Thornton) 0.05 % nasal spray Administer 2 sprays into each nostril every 12 hours as needed for congestion for up to 2 days. Do not use for more than 3 days. 30 mL 0 triamcinolone (Kenalog) 0.1 % ointment No facility-administered medications prior to visit. Past Medical History: Diagnosis Date Amenorrhea 06/17/2018 Anxiety BMI 35.0-35.9,adult 05/13/2018 Carpal tunnel syndrome, left [facility]ED[facility] Depression Dysplasia of cervix, low grade (TALISHA 1) 06/17/2018 Elevated prolactin level 07/15/2018 Gastric ulcer PCOS (polycystic ovarian syndrome) 06/17/2018 Pelvic pain in female 02/04/2018 PONV (postoperative nausea and vomiting) Pure hypercholesterolemia 01/03/2023 Social History Tobacco Use Smoking status: Never Passive exposure: Never Smokeless tobacco: Never Substance Use Topics Alcohol use: Yes Past Surgical History: Procedure Laterality Date CARPAL TUNNEL RELEASE Left 06/2021 ECTOPIC SURGERY 2018 Right salpingectomy-ectopic FALLOPIAN TUBE SURGERY (HISTORICAL) ONE REMOVED AT [facility] UPPER GASTROINTESTINAL ENDOSCOPY 2016 WISDOM TOOTH EXTRACTION Family History Problem Relation Name Age of Onset Other (55718) Paternal Grandmother Grandmother on Father's side glaucoma, URI Depression Paternal Grandmother Grandmother on Father's side Diabetes Paternal Grandmother Grandmother on Father's side Other (58843) Maternal Grandfather Dementia Diabetes Mother Mom Heart disease Mother Mom Mental illness Mother Mom Other (87610) Paternal Grandfather COPD No Known Problems Other Cancer Maternal Grandmother Grandma on Mom's side gallbladder High Blood Pressure Father Dad Alcohol abuse Father Dad Diabetes Father Dad Diabetes Father's Sister Aunt No Known Problems Sister No Known Problems Brother Objective BP 106/72 (BP Location: Right arm, Patient Position: Sitting, BP Cuff Size: Adult) Pulse 95 Ht 5' 3 (1.6 m) Wt 183 lb (83 kg) LMP 09/17/2023 (Exact Date) SpO2 99% BMI 32.42 kg/m Physical Exam Constitutional: Appearance: Normal appearance. She is obese. HENT: Head: Normocephalic and atraumatic. Right Ear: External ear normal. Left Ear: External ear normal. Nose: Congestion present. Eyes: Conjunctiva/sclera: Conjunctivae normal. Pupils: Pupils are equal, round, and reactive to light. Cardiovascular: Rate and Rhythm: Normal rate and regular rhythm. Heart sounds: Normal heart sounds. Pulmonary: Effort: Pulmonary effort is normal. Breath sounds: Normal breath sounds. Abdominal: General: Bowel sounds are normal. There is no distension. Palpations: Abdomen is soft. Tenderness: There is no abdominal tenderness. Musculoskeletal: General: Normal range of motion. Cervical back: Normal range of motion. Skin: General: Skin is warm and dry. Neurological: General: No focal deficit present. Mental Status: She is alert and oriented to person, place, and time. Psychiatric: Mood and Affect: Mood normal. Behavior: Behavior normal. .lele Data Reviewed and Summarized Labs: Imaging/Testing: JULIO CESAR Caldwell CNP Dictated using [employer] Version 2.4 Document has been proof read for accuracy; however unrecognized voice recognition errors may have occurred. documented in this encounter [facility] 10-10-2023 Instructions JULIO CESAR Caldwell CNP - 10/10/2023 8:00 AM EST Please get vaccine records/titers from ready set from [employer] and send in [employer]. The following attachments cannot be sent through Care Everywhere.Tips for Getting Better Sleep ([place])documented in this encounter [facility] 10-10-2023 Miscellaneous Notes Vitamin D was very low, I have sent in a large once a week dose to your pharmacy, this should be taken for 12 weeks, after you take your 11th dose please return to the lab to have the vitamin d checked again, if you are in normal ranges we will transition to 1000 to 2000 units daily. Normal liver, kidney, electrolyte, fasting sugar Normal thyroid Normal A1c (3 month blood sugar average) Normal blood counts Moderate elevation cholesterol. Cholesterol can be improved with increased physical activity, maintaining or working towards a healthy BMI and a diet rich in lean meats, varied produce, and soluble fiber such as oatmeal. There is also benefit in foods with omega 3 fatty acids. documented in this encounter [facility] 10-10-2023 Progress note Formatting of t his note might be different from the original. Vitamin D was very low, I have sent in a large once a week dose to your pharmacy, this should be taken for 12 weeks, after you take your 11th dose please return to the lab to have the vitamin d checked again, if you are in normal ranges we will transition to 1000 to 2000 units daily. Normal liver, kidney, electrolyte, fasting sugar Normal thyroid Normal A1c (3 month blood sugar average) Normal blood counts Moderate elevation cholesterol. Cholesterol can be improved with increased physical activity, maintaining or working towards a healthy BMI and a diet rich in lean meats, varied produce, and soluble fiber such as oatmeal. There is also benefit in foods with omega 3 fatty acids. [facility] 09-25-2023 Telephone encounter Note Patient scheduled PEER SPECIALIST appointment [facility] 09-25-2023 Miscellaneous Notes Patient scheduled PEER SPECIALIST appointment documented in this encounter [facility] 08-01-2023 Telephone encounter Note Pt missed appt today, called and lmom asking if she would like to reschedule [facility] 08-01-2023 Miscellaneous Notes Pt missed appt today, called and lmom asking if she would like to reschedule documented in this encounter [facility] 01-03-2023 History of Presen t illness Narrative Images from the original note were not included. [facility] [address] [facility] [address] [facility] [address] Dept: [phone] Dept Loc: [phone] 01/03/2023 Visit type: new patient Reason for Visit: Depression (Elana Witt is here today a new patient for depression/anxiety) ASSESSMENT/PLAN 1. LELE (generalized anxiety disorder) - buPROPion XL (Wellbutrin XL) 150 MG 24 hr tablet; Take 1 tablet (150 mg) by mouth every morning. Do not crush, chew, or split., Starting 01/03/2023, Until 03/04/2023, Normal - TSH -Chronic, uncontrolled, not on medical therapy. Start Wellbutrin 150 mg daily. 2. Moderate episode of recurrent major depressive disorder (HCC) - buPROPion XL (Wellbutrin XL) 150 MG 24 hr tablet; Take 1 tablet (150 mg) by mouth every morning. Do not crush, chew, or split., Starting 01/03/2023, Until 03/04/2023, Normal - TSH -Chronic, uncontrolled, not on medical therapy. Start Wellbutrin 150 mg daily. 3. Screening for diabetes mellitus - Hemoglobin A1c 4. Physical exam - Hemoglobin A1c - Lipid panel 5. Hypercholesteremia - Lipid panel Follow up in about 4 weeks (around 01/31/2023) for LELE and depression. Subjective Patient: Elana Witt is a 32 y.o. female who presents for wellness exam, discussion of anxiety and depression. HPI She has history of depression and anxiety, she was on Paxil 10 years ago but had issues because it made her angry and Lexapro gave her terrible migraines/ She now has issues with not wanting to eat, not able to sleep, she used to go to the gym all the time but no longer has energy or interest to do so. Additionally she has been getting palpitations due to anxiety. PH Q 9 was 12, LELE 7 was 7 Discussed initiation of Wellbutrin therapy for depression. While this medication may not be as helpful with her anxiety, it appears that she is struggling the most with decreased energy and lack of motivation which Wellbutrin can help with. Discussed side effect profiles with patient including risk of seizure in patients with history or family history of seizures entheses patient does not have family or personal history of seizure), contraindications with history of eating disorder (patient does not have any history), and GI side effects. She is agreeable for trial of this medical therapy. Patient has not seen the dentist in 1.5 years. Encourage patient to make appointment. Patient prior to exacerbation of her major depressive disorder was eating healthy meals with fruits, vegetables, meat. She is now lacking appetite and does not eat as much as she should. Expect improvement of her appetite and diet after depression is treated. She is not currently working out due to depression, however prior to that she was working out several days a week and lifting weights. 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 She is up-to-date on cervical cancer screening. She will be due for Pap smear July/2023. She has anovulatory cycles. LMP was December 24. She is currently sexually active with her , they do not use contraception. She is not interested in contraception at this time. Review of Systems Constitutional: Positive for fatigue. Negative for chills and fever. HENT: Negative for congestion and rhinorrhea. Eyes: Negative for visual disturbance. Respiratory: Negative for cough and shortness of breath. Cardiovascular: Negative for chest pain, palpitations and leg swelling. Gastrointestinal: Negative for abdominal pain, blood in stool, constipation, diarrhea, nausea and vomiting. Genitourinary: Negative for difficulty urinating and dysuria. Musculoskeletal: Negative for arthralgias, back pain, gait problem and myalgias. Skin: Negative for color change, pallor and rash. Neurological: Negative for dizziness, weakness, light-headedness, numbness and headaches. Psychiatric/Behavioral: Positive for dysphoric mood. Negative for agitation, behavioral problems and confusion. The patient is nervous/anxious. Allergies Allergen Reactions Oseltamivir Hives, Nausea And Vomiting and Rash Outpatient Medications Prior to Visit Medication Sig Dispense Refill ALPRAZolam (Xanax) 0.25 MG disintegrating tablet Take 0.25 mg by mouth. ipratropium (Atrovent) 0.03 % nasal spray INSTILL 2 SPRAYS INTO EACH NOSTRIL TWICE A DAY NEEDED. MULTIPLE VITAMINS-MINERALS ER PO Take by mouth. No facility-administered medications prior to visit. Past Medical History: Diagnosis Date BMI 35.0-35.9,adult 05/13/2018 Carpal tunnel syndrome, left SCHEDULED FOR THE SURGERY ON [facility]/21 [facility] Depression Dysplasia of cervix, low grade (TALISHA 1) 06/17/2018 Elevated prolactin level 07/15/2018 Gastric ulcer PCOS (polycystic ovarian syndrome) 06/17/2018 PONV (postoperative nausea and vomiting) Past Surgical History: Procedure Laterality Date CARPAL TUNNEL RELEASE Left 06/2021 ECTOPIC SURGERY 2018 Right salpingectomy-ectopic FALLOPIAN TUBE SURGERY (HISTORICAL) ONE REMOVED AT [facility] UPPER GASTROINTESTINAL ENDOSCOPY 2016 WISDOM TOOTH EXTRACTION Family History Problem Relation Name Age of Onset Other (03551) Paternal Grandmother glaucoma, URI Other (52800) Maternal Grandfather Dementia Diabetes Mother Other (84439) Paternal Grandfather COPD No Known Problems Other Depression Paternal Grandmother Cancer Maternal Grandmother gallbladder Diabetes Paternal Grandmother High Blood Pressure Father Diabetes Father's Sister No Known Problems Sister No Known Problems Brother Social History Tobacco Use Smoking status: Never Passive exposure: Never Smokeless tobacco: Never Substance Use Topics Alcohol use: Yes Objective BP 118/82 (BP Location: Right arm, Patient Position: Sitting, BP Cuff Size: Adult) Pulse 84 Temp 36.7 C (98.1 F) (Tympanic) Ht 5' 3 (1.6 m) Wt 167 lb (75.8 kg) SpO2 98% BMI 29.58 kg/m Physical Exam Vitals and nursing note reviewed. Constitutional: General: She is not in acute distress. Appearance: Normal appearance. She is not ill-appearing. HENT: Head: Normocephalic and atraumatic. Eyes: General: Right eye: No discharge. Left eye: No discharge. Extraocular Movements: Extraocular movements intact. Conjunctiva/sclera: Conjunctivae normal. Cardiovascular: Rate and Rhythm: Normal rate and regular rhythm. Pulses: Normal pulses. Heart sounds: Normal heart sounds. Pulmonary: Effort: Pulmonary effort is normal. No respiratory distress. Breath sounds: Normal breath sounds. No stridor. No wheezing, rhonchi or rales. Musculoskeletal: Right lower leg: No edema. Left lower leg: No edema. Skin: General: Skin is warm and dry. Capillary Refill: Capillary refill takes less than 2 seconds. Neurological: General: No focal deficit present. Mental Status: She is alert and oriented to person, place, and time. Psychiatric: Mood and Affect: Mood normal. Behavior: Behavior normal. Thought Content: Thought content normal. Judgment: Judgment normal. Data Reviewed and Summarized: Medical decision making including: See assessment an plan. Goals None [facility] Tho Kenney MD documented in this encounter [facility] 11-05-2022 History of Presen t illness Narrative Images from the original note were not included. Urgent Care Encounter [facility] Patient: Elana Witt : 1990 Date of Evaluation: 11/05/2022 Urgent Care Provider: Alvino Haynes APRN - [facility] Chief Complaint Chief Complaint Patient presents with Foot Injury Right foot, happened this morning, fell on the ice and heard a pop [place] Elana Witt is a 31 y.o. female who presents to the urgent care with c/o right ankle pain after falling this morning on ice. This is a new problem. Pertinent positive include right ankle pain Pertinent negatives include fever chills nausea vomiting or diarrhea. Patient also denies any numbness tingling of the right foot or toes. PMH: No pertinent past medical history Allergies: Tamiflu ROS: Review of Systems Constitutional: Negative for chills and fever. HENT: Negative for congestion, ear pain and sore throat. Eyes: Negative for pain, discharge and redness. Respiratory: Negative for cough, chest tightness and shortness of breath. Cardiovascular: Negative for chest pain and palpitations. Gastrointestinal: Negative for abdominal pain, constipation, diarrhea, nausea and vomiting. Endocrine: Negative for cold intolerance and heat intolerance. Genitourinary: Negative for dysuria, flank pain, frequency and urgency. Musculoskeletal: Positive for arthralgias, gait problem, joint swelling and myalgias. Negative for back pain. Skin: Negative for rash and wound. Allergic/Immunologic: Negative for environmental allergies and food allergies. Neurological: Negative for dizziness and headaches. Hematological: Negative for adenopathy. Psychiatric/Behavioral: Negative for agitation, behavioral problems and confusion. Past History Past Medical History: Diagnosis Date BMI 35.0-35.9,adult 05/13/2018 Carpal tunnel syndrome, left SCHEDULED FOR THE SURGERY ON 07/20/21 AT [facility] Depression Dysplasia of cervix, low grade (TALISHA 1) 06/17/2018 Elevated prolactin level 07/15/2018 Gastric ulcer PCOS (polycystic ovarian syndrome) 06/17/2018 PONV (postoperative nausea and vomiting) Past Surgical History: Procedure Laterality Date CARPAL TUNNEL RELEASE Left 06/2021 ECTOPIC SURGERY 2018 Right salpingectomy-ectopic FALLOPIAN TUBE SURGERY (HISTORICAL) ONE REMOVED AT [facility] UPPER GASTROINTESTINAL ENDOSCOPY 2016 WISDOM TOOTH EXTRACTION Social History Socioeconomic History Marital status: Tobacco Use Smoking status: Never Smokeless tobacco: Never Substance and Sexual Activity Alcohol use: Yes Drug use: No Medications/Allergies Previous Medications No medications on file Allergies Allergen Reactions Oseltamivir Hives, Nausea And Vomiting and Rash Physical Exam Vitals: 11/05/22 1038 BP: 123/83 Pulse: 74 Temp: 36.2 C (97.2 F) SpO2: 100% Physical Exam Vitals and nursing note reviewed. Constitutional: General: She is not in acute distress. Appearance: Normal appearance. HENT: Head: Normocephalic. Right Ear: External ear normal. Left Ear: External ear normal. Nose: Nose normal. No rhinorrhea. Mouth/Throat: Mouth: Mucous membranes are moist. Eyes: General: Right eye: No discharge. Left eye: No discharge. Pupils: Pupils are equal, round, and reactive to light. Cardiovascular: Rate and Rhythm: Normal rate. Pulses: Normal pulses. Pulmonary: Effort: Pulmonary effort is normal. Musculoskeletal: General: Swelling and tenderness present. Normal range of motion. Cervical back: Normal range of motion. No tenderness. Right ankle: Swelling present. Tenderness present. Legs: Comments: Tenderness upon palpation. There is slight swelling and bruising evident. Skin: General: Skin is warm. Capillary Refill: Capillary refill takes less than 2 seconds. Findings: No erythema or rash. Neurological: General: No focal deficit present. Mental Status: She is alert and oriented to person, place, and time. Psychiatric: Mood and Affect: Mood normal. Behavior: Behavior normal. Diagnostics Labs: Results for orders placed or performed in visit on 02/16/22 Urine culture Specimen: Urine Result Value Ref Range Urine Culture Normal urogenital joshua present. [facility] Plurchase POCT URINALYSIS DIPSTICK Result Value Ref Range Color, UA yellow Clarity, UA clear Glucose, UA neg Bilirubin, UA neg Ketones, UA neg Spec Grav, UA 1.010 Blood, UA neg pH, UA 7.0 Protein, UA neg Urobilinogen, UA 0.2 Leukocytes, UA neg Nitrite, UA neg Radiographs: Procedures: Course and MDM In brief, Elana Witt is a 31 y.o. female who presented to the urgent care with c/o right ankle pain after falling this morning on ice. Based on the mode of injury, a radiograph of right ankle was ordered and taken by the computer tech on staff. The radiograph was read by this nurse practitioner originally and read as negative for fracture while waiting for the official read from the radiologist. Patient already has TEE wrap. Based on evidence from the orgwjpb-velnyh-levaynon along with findings from my physical examination, and my review of systems, it is my opinion that the symptoms affecting the patient's wellbeing is Elana was seen today for foot injury. Diagnoses and all orders for this visit: Acute right ankle pain (Primary) - XR ankle 3+ views right Sprain of right ankle, unspecified ligament, initial encounter Patient is recommended to take medications that have been prescribed as directed. Patient is to continue with esef-dql-vkjdrqn (OTC) medications as needed for symptom relief included, but not specifically limited to medications such as Tylenol, Motrin, Clarain/Zyrtec, or Mucinex for associated symptom management. Patient was educated on the symptoms affecting the patient's health at today's visit. Patient is advised to follow up with primary care physician (PCP) if symptoms linger or worsen. Final Impression 1. Acute right ankle pain 2. Sprain of right ankle, unspecified ligament, initial encounter Patient's wellbeing is stable at this time. Patient is agreeable with plan and is cooperative with discharge at this time. Patient has been given information on their currently diagnosed illness from this visit as well as any other pertinent information based on their visit at this time. Pt has been educated on medications pertinent to this visit. (Please note that portions of this note may have been completed with a voice recognition program. Efforts were made to edit the dictations but occasionally words aremis-transcribed.) documented in this encounter [facility] 07-20-2021 History of Presen t illness Narrative Pt arrived to PACU from OR. Pt ID verified. Monitors applied with alarms on. Vital signs stable. belongings with patient. L wrist block completed. Pt awake and alert. Tolerated well. Dr Jalloh at bedside. Time out performed for L wrist block. Monitor on. Prepped for block. documented in this encounter [facility] Work Phone: 07-15-2021 [facility] Discharg e instructions Hua Acuna MD - 07/15/2021 Watch for fever or headache; can use decongestant as well The following attachments cannot be sent through Care Everywhere.Serous Otitis Media ([place])documented in this encounter [facility] Work Phone: 07-14-2021 [facility] Discharg e instructions Whit Sofia RN - 07/14/2021 IF YOU USE A CPAP MACHINE OR RESCUE INHALER AT HOME PLEASE BRING THESE ITEMS WITH YOU THE DAY OF SURGERY. MEDICATION INSTRUCTIONS PRIOR TO SURGERY PLEASE BRING PROVIDED LIST BACK WITH YOU THE DAY OF SURGERY WITH DATE/TIME LAST DOSE OF MEDICATIONS TAKEN. HOLD MULTI VITAMIN 5 DAYS PRIOR TO SURGERY HOLD IBUPROFEN 24 HOURS PRIOR TO SURGERY MAY TAKE TYLENOL UP UNTIL AM OF SURGERY IF NEEDED HOLD METFORMIN THE MORNING OF SURGERY During pre-admission testing appointment, patient instructed on the following To arrive 2 hours prior to scheduled surgery Upon arrival, stop in registration just past the main entrance and provide them with a photo id and a medical card if they have one After registration, come to the same day surgery department, stopping at the main desk They need to have made arrangements for a ride home following surgery and a phone number will need to be provided before going back to the operating room. If public transportation will be used after surgery, they are made aware that a responsible adult needs to accompany them. They need to make arrangements to have someone with them when they get home from surgery. Leave all jewelry, contacts and valuables at home Wear loose comfortable clothing to go home in Bring in the medication list provided for them and write in the date/time last dose was taken No food (including candy, gum and mints) the day of surgery They may have clear liquids ( water, black coffee/no liquid or powder creamer, clear tea, clear fruit juices/no pulp and carbonated beverages) up until 2 hours prior to surgery Do not drink alcohol, use recreational drugs or smoke/use nicotine products 24 hours prior to surgery. Encouraged to write down any questions they may have for the surgeon, anesthesiologist or any member of the surgical team, and to bring list of questions in with them To not shave the surgical site and to follow instructions provided on showering with the CHG solution During the pre-admission testing appointment, this nurse reviewed and provided patient with The taking care of yourself after surgery paper Billing information for anesthesia patients Preparing for your surgical procedure pamphlet After visit Summary with medication list and medication instructions The CHG solution and shower card with instruction. Pt encouraged to follow instructions on card Prior to end of PAT appointment, pt acknowledged understanding of information and instructions provided in preparation of upcoming surgery. The following attachments cannot be sent through Care Everywhere.Carpal Tunnel Release: Post-op ([place])Carpal Tunnel Release: Pre-op ([place])documented in this encounter [facility] Work Phone: Discharge summary Note Date/Time August 11, 2025 12:11pm [facility] Medical Records Department [address] [place] [address] Emergency Department Summary 08/11/25 MR#: [id number] Acct: [id number] Name: ELANA WITT Rep #:[id number] : 1990 34 From: Jonathan Lorenzana MD PCP: Status:PRE ER Location: ED HPI History of Present Illness Chief Complaint: Occup Expose Detail of Chief Complaint: Blood exposure, needlestick distal radial volar side L long finger Informant: patient Onset/Context/Timing Onset: Today and Hours 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 When she went to throw away the needle she stuck herself. There isobvious needle puncture jadon left long finger as previously described. She has no other symptoms or complaints. Prior similar symptoms: No Recent Illness/Hospitalization: No [facility] Home Medications ?Medication ?Instructions ?Recorded ?Last Taken ?Type norethindrone (contraceptive) 0.35 0.35 mg PO QDAY #84 tabs 06/08/25 Unknown Rx mg tablet mgiumbsm-izjaatynf-fmpdvfmvm 3.5 3 drp otic (ear) Q4H 10 days #10 mL 08/03/25 Unknown Rx mg-10,000 unit/mL-1 % ear drops,susp Allergy/AdvReac Type Severity Reaction Status Date / Time bee venom protein (honey Allergy Swelling Verified 08/11/25 10:43 bee) (bees) coconut Allergy rash Verified 08/11/25 10:43 oseltamivir (From Tamiflu) Allergy rash Verified 08/11/25 10:43 acetaminophen (From Percocet) AdvReac Nausea Verified 08/11/25 10:43 doxycycline AdvReac Nausea Verified 08/11/25 10:43 oxycodone (From Percocet) AdvReac Nausea Verified 08/11/25 10:43 Social History Smoking Status: Never smoker ROS ROS ED Constitutional Constitutional ED: Denies chills, fever(s) or subjective Integumentary Reports other Details: Puncture wound left long finger Neurologic Neurologic: Denies paresthesias or weakness Hematologic/Lymphatic Hematologic/Lymphatic: Denies easy bleeding or easy bruising EXAM Physical Exam Const Vital Signs: 08/11/25 10:44 08/11/25 10:48 Temperature 98.7 F Temperature Source Oral Pulse Rate 64 Respiratory Rate 18 Respiratory Effort Normal Respiratory Pattern Normal Blood Pressure 134/78 H Blood Pressure Mean 96 Pulse Ox 97 Oxygen Delivery Method Room Air Positive well nourished and well developed General Appearance ED: well developed HEENT HEENT Narrative: Grossly within normal limits Eyes PERRL and EOMs intact bilaterally Resp normal respiratory effort Cardio regular rhythm Rate: regular rate Extremity Negative for normal to inspection Extremity Narrative: Puncture wound distal radial volar surface left long finger. There is no subungual hematoma. There is no neurovasc Otomize. Neuro oriented x3 and CN's II-XII intact bilaterally Sensorium / Orientation: alert Psych mental status grossly normal and thought process normal Skin Skin Narrative: Wound consistent with needlestick left finger MDM MDM MDM Narrative Medical decision making narrative: Patient with dirty needle closure. Exposure protocol initiated. Will need to follow-up with [facility]. Discharge Plan Triage Chief Complaint: Occup Expose ED Provider: Jonathan Lorenzana Dx/Rx/DC Orders Clinical Impression: Needle stick injury of finger, Elevated blood pressure reading without diagnosis of hypertension, Exposure to body fluid Instructions: ED Body Fluid Exposure Not ..., ED Hypertension, To Be Confirmed Prescriptions: No Action norethindrone (contraceptive) 0.35 mg tablet 0.35 mg PO QDAY Qty: 84 1RF Rx Instructions: start day 1 of menstrual cycle uvdgxkwq-meoclsofb-GC 3.5-10,000-1 mg/mL-unit/mL-% drops,suspension 3 drp otic (ear) Q4H 10 Days Qty: 10 0RF Rx Instructions: apply to (cotton) wick; replace wick every 24 hours Referrals: [facility] - 3-5 Days Activity Restrictions/Additional Instructions: Will need to contact source and obtain blood for testing Print Language: [place] Disposition Disposition: Home, Self Care What to do if you have Problems For any increased pain, shortness of breath, bleeding, nausea or vomiting, chestpain, or any unexpected problems, contact your Primary Care Provider. Call [facility] ([phone]) or report to the closest Emergency Room. Call 911 if necessary. 08/11/25 1111 <Electronically signed by Jonathan Lorenzana MD> Cosigner Signature (if applicable): CC: ~ Signed [facility] Work Phone: Evaluation note* Diagnosis Acute serous otitis media of left ear, recurrence not specified- Primary documented [facility] encounter [facility] Work Phone: Evaluation note* Diagnosis S/P endoscopic carpal tunnel release- Primary Other postprocedural status documented in this encounter [facility] Work Phone: Evaluation note* Diagnosis Sore throat- Primary Acute pharyngitis URI with cough and congestion Other non-recurrent acute nonsuppurative otitis media of left ear [facility] Diagnosis Vitamin D deficiency- Primary [facility] Diagnosis Annual physical exam- Primary Routine general medical examination at a health care facility LELE (generalized anxiety disorder) Generalized anxiety disorder Current mild episode of major depressive 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 (HCC) Generalized anxiety disorder Viral upper respiratory tract infection Acute upper respiratory infections of unspecified site Exposure to COVID-19 virus [facility] Diagnosis Encounter for gynecological examination without abnormal finding- Primary Screening for cervical cancer Screening for malignant neoplasm of the cervix Encounter for initial prescription of contraceptive pills Screen for STD (sexually transmitted disease) Screening examination for venereal disease Encounter for sterilization Sterilization [facility]* Diagnosis Dysuria- Primary Cystitis with hematuria Unspecified cystitis documented [facility]* Diagnosis Trichomonas infection- Primary Unspecified trichomoniasis HPV in female documented in this encounter [facility]* Diagnosis Mass of upper inner quadrant of left breast- Primary Current mild episode of major depressive 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 (HCC) LELE (generalized anxiety disorder) Generalized anxiety disorder documented in this encounter [facility]* Diagnosis Missed period- Primary documented in this encounter [facility]* Diagnosis HPV in female- Primary documented in [facility] encounter [facility]* Diagnosis Mass of upper inner quadrant of left breast- Primary documented in this encounter [facility]* Diagnosis Mass of upper inner quadrant of left breast documented in this encounter [facility]* Diagnosis Acute right ankle pain- Primary Sprain of right ankle, unspecified ligament, initial encounter documented in this encounter [facility]* Diagnosis LELE (generalized anxiety disorder)- Primary Generalized anxiety disorder Moderate episode of recurrent major depressive disorder (HCC) Screening for diabetes mellitus Physical exam Unspecified general medical examination Hypercholesteremia Pure hypercholesterolemia documented [facility]* Diagnosis Mass of upper inner quadrant of left breast- Primary Current mild episode of major depressive 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 (HCC) LELE (generalized anxiety disorder) Generalized anxiety disorder Current mild episode of major depressive 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 (HCC) LELE (generalized anxiety disorder) Generalized anxiety disorder documented [facility]* Diagnosis Mass of upper inner quadrant of left breast- Primary Current mild episode of major depressive 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 (HCC) LELE (generalized anxiety disorder) Generalized anxiety disorder Current mild episode of major depressive 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 (HCC) LELE (generalized anxiety disorder) Generalized anxiety disorder documented in this encounter [facility]* Diagnosis Mass of upper inner quadrant of left breast- Primary Current mild episode of major depressive 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 (HCC) LELE (generalized anxiety disorder) Generalized anxiety disorder Current mild episode of major depressive 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 (HCC)- Primary LELE (generalized anxiety disorder) Generalized anxiety disorder Rash Rash and other nonspecific skin eruption Sciatica, unspecified laterality documented in this encounter [facility]* Diagnosis Mass of upper inner quadrant of left breast- Primary Current mild episode of major depressive 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 (HCC) LELE (generalized anxiety disorder) Generalized anxiety disorder Post inflammatory hypopigmentation- Primary Rash Rash and other nonspecific skin eruption documented in this encounter [facility]* Diagnosis Mass of upper inner quadrant of left breast- Primary Current mild episode of major depressive 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 (HCC) LELE (generalized anxiety disorder) Generalized anxiety disorder Vitamin D insufficiency- Primary Screening for deficiency anemia Screening for other and unspecified deficiency anemia PCOS (polycystic ovarian syndrome) Polycystic ovaries Pure hypercholesterolemia Generalized anxiety disorder Screening for thyroid disorder Screening for diabetes mellitus (DM) Screening for diabetes mellitus documented [facility]* Diagnosis Mass of upper inner quadrant of left breast- Primary Current mild episode of major depressive 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 (HCC) LELE (generalized anxiety disorder) Generalized anxiety disorder Vitamin D insufficiency- Primary Screening for deficiency anemia Screening for other and unspecified deficiency anemia PCOS (polycystic ovarian syndrome) Polycystic ovaries Pure hypercholesterolemia Generalized anxiety disorder Screening for thyroid disorder Screening for diabetes mellitus (DM) Screening for diabetes mellitus documented in this encounter [facility]* Diagnosis Mass of upper inner quadrant of left breast- Primary Current mild episode of major depressive 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 (HCC) LELE (generalized anxiety disorder) Generalized anxiety disorder Visit for TB skin test- Primary documented [facility]* Diagnosis Mass of upper inner quadrant of left breast- Primary Current mild episode of major depressive 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 (HCC) LELE (generalized anxiety disorder) Generalized anxiety disorder Visit for TB skin test- Primary documented in [facility]* Diagnosis Mass of upper inner quadrant of left breast- Primary Current mild episode of major depressive 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 (HCC) LELE (generalized anxiety disorder) Generalized anxiety disorder Encounter for PPD skin test reading- Primary documented in this encounter [facility] noteNo assessment information availableWKettering [facility] Work Phone: Evaluation note* Diagnosis Onset Date Resolution Status Admit Date Exposure to body fluid inactive Oc [id number] 6:26am Needle stick injury of finger inactive August 17 6:26am [facility] Work Phone: Hospital Discharge instructions* Instructions* Remedios Caro PA-C - 07/20/2021 Bandage: Keep operative dressing on, clean, and dry for one week. After one week from the date of surgery, you can remove the Tee wrap and white cotton dressing. You have Steri-Strips/white tape over the incision, please leave this intact until your follow-up appointment as it is holding the suture in place. It is okay to shower and get the Steri-Strips wet but do not soak the incision. If the Steri-Strips start to peel up, it is okay to trim them back but do not cut the suture or remove completely. Nerve block for pain control: You received a local injection with lidocaine and epinephrine today. It is normal for your finger tips to look pale or white for up to 10 hours after surgery but if this persists past the 10 hours please call the office immediately. Swelling control: Elevate and Ice for pain control. You may take the tramadol as prescribed and then transition to Ibuprofen 600 mg every 6 hours with food as needed for relief of pain and swelling. This can be alternated with Tylenol extra strength 500 mg every 6 hours as needed to help control pain after surgery. Immobilization: Encourage range of motion of index finger, long finger, ring finger, little finger, thumb, and wrist in dressing with goal of touching fingertips to palm by initial post op appointment. Weightbearing: Non weight bearing in operative extremity. documented in this [facility] Work Phone: Hospital Discharge instructionsAdditional Instructions Will need to contact source and obtain blood for testingWKet[facility] Work Phone: Instructions* Attachments The following attachments cannot be sent through Care Everywhere. 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 No August 11, 2025 9:48am Discharge Instructions * Attachments The following attachments cannot be sent through Care Everywhere. * URI (Upper Respiratory Infection): Viral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
== END | disposition home or self-care (01) ==
LOC: OPBI 14:40
PROVIDERS: Referring Provider Nurse Practitioner Women's Health; Visit Provider Nurse Practitioner Women's Health
DX: Z12.31 Encounter for screening mammogram for malignant neoplasm of breast (principal)
CPT/HCPCS: 77063; 77067

== ENCOUNTER → 2025-10-01 | Outpatient (CLI) | payer OTHER, SELFPAY ==
--- NOTE | 2025-10-01 10:54 | US_ITS ---
PROCEDURE: BREAST LIMITED UNILATERAL 10/01/2025 REASON FOR EXAM: F, Age 34 y/o , DENSITY Abnormal screening mammogram of the left breast. COMPARISON: Prior mammogram dated September 24, 2025.. TECHNIQUE: Procedure Code: USBRSTLIMIT Modality: US Procedure: BREAST LIMITED UNILATERAL the lateral aspect of the left breast was examined with ultrasound. FINDINGS: There is a 6 mm x 5 mm x 5 mm cyst at the 3 o'clock position of the breast at 2 cm from the nipple. There is also evidence of a 4 mm x 4 mm x 3 mm cyst at the 4 o'clock position of the breast at 1 cm from the nipple. US/Breast Limited Unilateral IMPRESSION: The mammographic abnormality corresponds to 2, adjacent subcentimeter cysts. BI-RADS 2: BENIGN RECOMMENDATION: Routine annual follow-up in 1 Year Reading Location: [place] [address]
--- OUTSIDE RECORDS SUMMARY | 2025-10-01 13:36 | XMS RPT_ITS | CCD ---
Author Organization [facility] ion [facility] Care Team Providers Care Lubricator Granulator Name Role Phone Roseline Dupree Unavailable Unavailable Melvina Campos Unavailable Unavailable Melvina Campos Unavailable Unavailable ALYSSA TIM (PA-C) Unavailable Unavai Melvina Bright Primary Care Provider Melvina Campos Primary Care Provider Melvina Campos MD Primary Care Provider Tho Kenney MD Primary Care Provider [facility] Primary Care Provider Unav ailMaría Bustamante MD Primary Care Provider Ramandeep Bah APRN, CNP Unavailable Melvina Campos MD Primary Care Provider Tho Kenney MD Primary Care Provider María Keyes MD Primary Care Provider [phone] Assessment, Health Risk Attending Physician Unav ailable Assessment, Health Risk Referring Provider [facility], Employee Attending Physician [phone] Jordan Benavides MD Attending Physician MARÍA KEYES [...] Attending Unavailable Jordan Benavides MD Attending Physician Salomón JORGENSEN, Dr. Castillo Attending Physician Salomón JORGENSEN, Dr. Castillo Emergency Department Physician Care Physician, No Primary Primary Care Physicia n Unavailable Care Physician, No Primary Referring Provider Un available Dax Childs Attending Physician Jordan Benavides Attending Unavailable Salomón, Jonathan Attending Unavailable Care Physician, No Primary Primary Care Unava ilable Assessment, Health Risk Attending Unavaila ble Assessment, Health Risk Referring Unavaila ble Kirti LASER CUTTER, Britney Attending Unavailable Kirti LASER CUTTER, Britney Referring Unavailable Care Physician, No Primary Primary Care Unava ilable Kirti LASER CUTTER, Britney Attending Unavailable Care Physician, No Primary Primary Care Unava ilable [place] LASER CUTTER, Britney Attending Unavailable Care Physician, No Primary Primary Care Unava ilable Care Physician, No Primary Referring Unava ilable Dax Childs Attending Unavailable Care Physician, No Primary Primary Care Unava ilable Care Physician, No Primary Referring Unava ilable Allergies Allergy Classification Reported Allergen(s) Allergy Type Date of Onset Reaction(s) Facility (6 sources) Oseltamivir Drug Allergy 7 Swelling [facility] Work Phone: (20 sources) Oseltamivir Drug Allergy 7 Hives, Nausea And Vomiting, Rash [facility] (9 sources) coconut allergenic extract Drug Allergy 5 [facility] (8 sources) Doxycycline Drug Allergy 5 Nausea And Vomiting [facility] (2 sources) Acetaminophen Drug Allergy 5 Nausea [facility] Comment on above: and dizziness (2 sources) Coconut extract Drug Allergy 5 rash [facility] (2 sources) Oseltamivir Drug Allergy 5 rash [facility] Comment on above: and nausea (3 sources) oxyCODONE Drug Allergy 5 Nausea [facility] Comment on above: and dizziness (2 sources) bee venom protein (honey bee) Allergy to substance 5 Swelling [facility] (1 source) Acetaminophen Drug Allergy 5 [facility] (1 source) Honey bee venom Drug Allergy 5 [facility] (1 source) Acetaminophen Drug Allergy 5 [facility] Repository (1 source) Coconut extract Drug Allergy 5 [facility] (1 source) Doxycycline Drug Allergy 5 [facility] (1 source) Oseltamivir Drug Allergy 5 [facility] (1 source) oxyCODONE Drug Allergy 5 [facility] (1 source) bee venom protein (honey bee) Drug allergy (disorder) 5 [facility] Medications Current Medications Medication Drug Class(es) [...] oral solution (2 sources) alpha-Adrenergic Agonist, Uncompetitive [place] te Receptor Antagonist, Sigma-1 Agonist Start: 10-12-2023 [...] every week ergocalciferol (Vitamin D-2) 1.25 MG (76206 UT) capsule Indications: Vitamin D deficiency Take [...] / neomycin 3.5 mg/ml / polymyxin b 78122 unt/ml otic suspension (1 source) Aminoglycoside Antibacterial, Polymyxin-class Antibacterial, Corticosteroid Start: 08-03-2025 End: 08-13-2025 Uqfvywpi-Auglyqcue-Lh 3.5-10,000-1 mg/mL-unit/mL-% drops,suspension Discontinued 3 NMA OTIC [...] Test Name Value Interpretation Reference Range Facility Telecommunications Operator Office Visit Reporton 09-02-2025 Telecommunications Operator Office Visit Report [facility] [address], [address] [place] [address] OFFICE VISIT Date of Service: 09/02/25 MR#: [id number] Acct: [id number] Name: ELANA WITT Rep #: [id number] : 1990 Provider: TAYLOR rodriguez Age/Sex: 34/F [place] [facility] [place]: Signed Intake Vital Signs 08/11/25 10:44 09/02/25 09:01 Height 5 ft 4.5 in 5 ft 4.5 in Weight: 187 lb 9 oz BMI 31.6 BP 134/85 H 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 Prior exams at [facility]. Has had colp 2023 for abnormal pap, +HPV and biopsy benign. [facility] [employer]. Same sexual partner since last exam at [facility]. Long history of PCOS. 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 Shaves [...] oriented to person and oriented to place HENOR Head: normal to inspection Neck Neck: normal [...] other (hirsuti (more content not included)... Normal [facility] 36on 08-20-2025 36 LM for return call. 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 On date of injury patient reported [facility] ED were treated and released the same [...] working without restrictions as noted on today's [employer] 14. Elana to follow-up with source patient's drafting supervisor to ensure initial blood-borne pathogen lab work is drawn for him as well; Elana will determine if she wants further blood-borne pathogen labs drawn when she finds out the results of the source labs blood work results. Follow-up with the [facility] to be determined. Patient states acknowledging understanding all the above. This note was generated with [employer] dictation software. It may contain incorrect words, spelling, and punctuation that were not noted in checking the note before signing. 08/17/25 0642 Date Dax Turner Signature: Date (if applicable) CC: Normal [facility] Emergency Department Summary on 08-11-2025 Emergency Department Summary [facility] Medical Records Department [address] [place] [address] Emergency Department Summary 08/11/25 MR#: [id number] Acct: [id number] Name: ELANA WITT Rep #: [id number] : 1990 34 From: Jonathan Lorenzana MD [...] Weakness Narrative Narrative: Patient is a 34-year-old ohyc-bdra-insbvwgg woman. 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 When she [...] #84 tabs 5 Unknown Rx mg tablet izuvkuee-rfiqiojqx-mmg rocort 3.5 3 drp otic (ear) Q4H [...] protocol initiated. Will need to follow-up with replaced by [facility]. Discharge Plan Triage Chief Complaint: Occup Expose [...] Instructions: start day 1 of menstrual cycle hbmvdvyk-kkbrtmnxp-VX 3.5-10,000-1 mg/mL-unit/mL-% drops,suspension 3 drp otic (ear) Q4H 10 Days Qty: 10 0RF Rx Instructions: apply to (cotton) wick; replace wick every 24 hours Referrals: [facility], Medical] - 3-5 Days Activity Restrictions/Additiona l Instructions: Will need to contact source and obtain blood for testing Print Language: Slovenian Disposition Disposition: Home, Self Care What to do if you have Problems For any increased pain, shortness of breath, bleeding, nausea or vomiting, chest pain, or any unexpected problems, contact your Primary Care Provider. Call [facility] ([phone]) or report to the closest Emergency Room. Call 911 if necessary. (more content not included)... Normal [facility] HIVon 08-11-2025 HIV Non-Reactive Normal Nonreactive [facility] Comment on above: Order Comment: Reaso n [...] Order the HIV antibody detection and differentiation: [id number] Performed By: #### L 3890.6202, L3890.6301, L3890.6006, L3890.6102 #### [facility] [address], [place], [id number] Hepatitis B Surface Antibody on 08-11-2025 HEP B Surf Ab REAC Normal [facility] Comment on above: Result Comment: <8.5 mIU/mL: Non-Reactive 8.5<= x <11.5 mIU/mL: Indeterminate >=11.5 mIU/mL: Reactive Non Reactive: Inconsistent with immunity less than <10 mIU/mL Reactive: Consistent with immunity greater than or equal to 10 mIU/mL Performed By: #### L 3890.6202, L3890.6301, L3890.6006, L3890.6102 #### [facility] [address] [place], [address] Hepatitis C Antibodyon 08-11 Hepatitis C Ab Non-Reactive Normal Nonreactive [facility] Comment on above: Order Comment: Reaso n [...] HCV Quant by PCR testing - HCVPCR #[id number] Non Reactive: < 0.8 Equivocal: >/= 0.8 to < 1.0 Reactive: >/= 1.0 The CDC requires that a reactive/equivocal HCV antibody result be sent out for confirmation. HCV Quant by PCR testing. Performed By: #### L 3890.6202, L3890.6301, L3890.6006, L3890.6102 #### [facility] [address] [place], [place], [address] L3890.6102on 08-11-2025 HEP B Surf Ag Non-Reactive Normal Nonreactive [facility] Comment on above: Order Comment: Reaso n for Exam: Dirty needlestick Result Comment: Reac tive: Presumptive evidence of HBV. Repeatedly reactive samples must be confirmed using a neutralization test ([facility] HBsAg Confirmatory Test) Non-Reactive: HBsAg not detected; does not exclude the possibility of exposure to HBV Performed By: #### L 3890.6202, L3890.6301, L3890.6006, L3890.6102 #### [facility] [address], [place], [id number] Laboratory - Microbiology an d Antimicrobial susceptibilityOrdered By: Jonathan Lorenzana on 08-11-2025 HBV surface Ag Ql (S) Non-Reactive Nonreactive [facility] Comment on above: Reactive: Presumptiv e evidence of HBV. Repeatedly reactive samples must be confirmed using a neutralization test ([employer] HBsAg Confirmatory Test)Non-Reactive: HBsAg not detected; does not exclude the possibility of exposure to HBV No Panel InformationOrdered By: Jonathan Lorenzana on 08-11-2025 HIV (1&2) Antibody Non-Reactive Nonreactive [facility] Comment on above: Non-ReactiveReactive Repeatedly reactive samples must be confirmed according to CDC recommended confirmatory algorithms. The subresults for either HIVAG or AHIV can be used as an aid in the selection of the confirmation algorithm for reactive samples.Send out specimens with Reactive results to [facility] for confirmation.Order the HIV antibody detection and differentiation: #[id number] Serum hepatitis B virus surf tee antibody detectionOrdered By: Jonathan Lorenzana on 08-11-2025 HBV surface Ab Ql (S) [facility] Comment on above: <8.5 mIU/mL: Non-Monika ctive8.5<= x <11.5 mIU/mL: Indeterminate>=11.5 mIU/mL: Reactive Non Reactive: Inconsistent with immunity less than <10 mIU/mL Reactive: Consistent with immunity greater than or equal to 10 mIU/mL Anion gap in Serum or Plasma Ordered By: Jordan Benavides on 07-02-2025 Anion gap [Moles/Vol] 13 mmol/L 5-15 [facility] BUN/creatinine ratioOrdered By: Jordan Benavides on 07-02-2025 Urea nitrogen/Creatinine [Mass ratio] 12.7 mg/mg 10-20 [facility] Bilirubin, totalOrdered By: Jordan Benavides on 07-02-2025 Bilirubin [Mass/Vol] 0.67 mg/dL 0.00-1.30 [facility] CBC-Complete Blood Cnt No Di ffon 07-02-2025 Erythrocyte distribution width (RBC) [Ratio] 12.2 % Normal 11.6-14.6 [facility] Comment on above: Order Comment: Order Date: 07/02/25 Order Info: [id number] - CBC Performed By: #### L 500.4100, L500.4050, L501.9985, L100.0500, L501.9520 #### [facility] [address] [place], [address] Hematocrit (Bld) [Volume fraction] 40.0 % Normal 37-47 [facility] Comment on above: Order Comment: Order Date: 07/02/25 Order Info: [id number] - CBC Performed By: #### L 500.4100, L500.4050, L501.9985, L100.0500, L501.9520 #### [facility] [address] [place], [address] Hemoglobin (Bld) [Mass/Vol] 13.9 g/dL Normal 12.0-15.0 [facility] Comment on above: Order Comment: Order Date: 07/02/25 Order Info: [id number] - CBC Performed By: #### L 500.4100, L500.4050, L501.9985, L100.0500, L501.9520 #### [facility] [address] [place], [address] MCH (RBC) [Entitic mass] 32.9 pg High 27.0-32.0 [facility] Comment on above: Order Comment: Order Date: 07/02/25 Order Info: [id number] - CBC Performed By: #### L 500.4100, L500.4050, L501.9985, L100.0500, L501.9520 #### [facility] [address] [place], [address] MCHC (RBC) [Mass/Vol] 34.8 g/dL Normal 32-36 [facility] Comment on above: Order Comment: Order Date: 07/02/25 Order Info: [id number] - CBC Performed By: #### L 500.4100, L500.4050, L501.9985, L100.0500, L501.9520 #### [facility] [address] [place], [address] MCV (RBC) [Entitic vol] 94.6 fL Normal 81-99 [facility] Comment on above: Order Comment: Order Date: 07/02/25 Order Info: [id number] - CBC Performed By: #### L 500.4100, L500.4050, L501.9985, L100.0500, L501.9520 #### [facility] [address] [place], [address] Platelet mean volume (Bld) [Entitic vol] 11.7 fL Normal 6.2-12.0 [facility] Comment on above: Order Comment: Order Date: 07/02/25 Order Info: [id number] - CBC Performed By: #### L 500.4100, L500.4050, L501.9985, L100.0500, L501.9520 #### [facility] [address] [place], [address] Platelets (Bld) [#/Vol] 221 10*3/uL Normal 150-450 [facility] Comment on above: Order Comment: Order Date: 07/02/25 Order Info: [id number] - CBC Performed By: #### L 500.4100, L500.4050, L501.9985, L100.0500, L501.9520 #### [facility] [address] [place], [address] RBC (Bld) [#/Vol] 4.23 10*6/uL Normal 4.2-5.4 [facility] Comment on above: Order Comment: Order Date: 07/02/25 Order Info: [id number] - CBC Performed By: #### L 500.4100, L500.4050, L501.9985, L100.0500, L501.9520 #### [facility] [address] [place], [address] RDW SD 42.3 fl Normal 35.1-43.9 [facility] Comment on above: Order Comment: Order Date: 07/02/25 Order Info: [id number] - CBC Performed By: #### L 500.4100, L500.4050, L501.9985, L100.0500, L501.9520 #### [facility] [address] [place], [address] WBC (Bld) [#/Vol] 7.1 10*3/uL Normal 4.4-11.0 [facility] Comment on above: Order Comment: Order Date: 07/02/25 Order Info: [id number] - CBC Performed By: #### L 500.4100, L500.4050, L501.9985, L100.0500, L501.9520 #### [facility] [address] [place], [address] Calculated very low density lipoprotein (VLDL) cholesterol measurementOrdered By: Jordan Benavides on 07-02-2025 Calculated very low density lipoprotein (VLDL) cholesterol measurement 50 mg/dL High 5-40 [facility] Carbon dioxide, total [Moles /volume] in Central venous bloodOrdered By: Jordan Benavides on 07-02-2025 CO2 [Moles/Vol] 24.0 mmol/L 21.0-32.0 [facility] Chloride assayOrdered By: Radha Benavides on 07-02-2025 Chloride [Moles/Vol] 103 mmol/L 98-108 [facility] Comprehensive Metabolic Prof ilon 07-02-2025 Albumin [Mass/Vol] 4.4 g/dL Normal 3.5-5.0 [facility] Comment on above: Order Comment: Order Date: 07/02/25 Order Info: [id number] - CMP Order Info: [id number] - LIPID Order Info: [id number] - TSH Performed By: #### L 500.4100, L500.4050, L501.9985, L100.0500, L501.9520 #### [facility] [address] [place], [address] Albumin/Globulin [Mass ratio] 1.4 {ratio} Normal 0.9-2.4 [facility] Comment on above: Order Comment: Order Date: 07/02/25 Order Info: [id number] - CMP Order Info: [id number] - LIPID Order Info: [id number] - TSH Performed By: #### L 500.4100, L500.4050, L501.9985, L100.0500, L501.9520 #### [facility] [address] [place], [address] ALK PHOS 84 U/L Normal 35-104 [facility] Comment on above: Order Comment: Order Date: 07/02/25 Order Info: [id number] - CMP Order Info: [id number] - LIPID Order Info: [id number] - TSH Performed By: #### L 500.4100, L500.4050, L501.9985, L100.0500, L501.9520 #### [facility] [address] [place], [address] ALT [Catalytic activity/Vol] 18 U/L Normal <=34 [facility] Comment on above: Order Comment: Order Date: 07/02/25 Order Info: [id number] - CMP Order Info: - LIPID Order Info: [id number] - TSH Performed By: #### L 500.4100, L500.4050, L501.9985, L100.0500, L501.9520 #### [facility] [address] [place], [address] AST [Catalytic activity/Vol] 19 U/L Normal <=31 [facility] Comment on above: Order Comment: Order Date: 07/02/25 Order Info: [id number] - CMP Order Info: - LIPID Order Info: [id number] - TSH Performed By: #### L 500.4100, L500.4050, L501.9985, L100.0500, L501.9520 #### [facility] [address] [place], [address] Bilirubin [Mass/Vol] 0.67 mg/dL Normal 0.00-1.30 [facility] Comment on above: Order Comment: Order Date: 07/02/25 Order Info: [id number] - CMP Order Info: - LIPID Order Info: [id number] - TSH Performed By: #### L 500.4100, L500.4050, L501.9985, L100.0500, L501.9520 #### [facility] [address] [place], [address] BUN/CRE 12.7 RATIO Normal 10-20 [facility] Comment on above: Order Comment: Order Date: 07/02/25 Order Info: 07 - CMP Order Info: - LIPID Order Info: [id number] - TSH Performed By: #### L 500.4100, L500.4050, L501.9985, L100.0500, L501.9520 #### [facility] [address] [place], [address] Calcium [Mass/Vol] 9.5 mg/dL Normal 7.6-11.0 [facility] Comment on above: Order Comment: Order Date: 07/02/25 Order Info: [id number] - CMP Order Info: - LIPID Order Info: [id number] - TSH Performed By: #### L 500.4100, L500.4050, L501.9985, L100.0500, L501.9520 #### [facility] [address] [place], [address] Chloride [Moles/Vol] 103 mmol/L Normal 98-108 [facility] Comment on above: Order Comment: Order Date: 07/02/25 Order Info: [id number] - CMP Order Info: - LIPID Order Info: [id number] - TSH Performed By: #### L 500.4100, L500.4050, L501.9985, L100.0500, L501.9520 #### [facility] [address] [place], [address] CO2 [Moles/Vol] 24.0 mmol/L Normal 21.0-32.0 [facility] Comment on above: Order Comment: Order Date: 07/02/25 Order Info: [id number] - CMP Order Info: - LIPID Order Info: [id number] - TSH Performed By: #### L 500.4100, L500.4050, L501.9985, L100.0500, L501.9520 #### [facility] [address] [place], [address] Creatinine [Mass/Vol] 0.73 mg/dL Normal 0.70-1.20 [facility] Comment on above: Order Comment: Order Date: 07/02/25 Order Info: [id number] - CMP Order Info: [id number] - LIPID Order Info: [id number] - TSH Performed By: #### L 500.4100, L500.4050, L501.9985, L100.0500, L501.9520 #### [facility] [address] [place], [place], [address] GAP 13 Normal 5-15 [facility] Comment on above: Order Comment: Order Date: 07/02/25 Order Info: 785- - CMP Order Info: [id number] - LIPID Order Info: 3 - TSH Performed By: #### L 500.4100, L500.4050, L501.9985, L100.0500, L501.9520 #### [facility] [address] [place], [place], [address] GFR/1.73 sq M.predicted among non-blacks MDRD (S/P/Bld) [Vol rate/Area] 109 mL/min/{1.73_m2} Normal >60 [facility] Comment on above: Order Comment: Order Date: 07/02/25 Order Info: [id number] - CMP Order Info: - LIPID Order Info: [id number] - TSH Result Comment: mL/m in/1.73m2 CKD-EPI Creatinine Equation (2020) Performed By: #### L 500.4100, L500.4050, L501.9985, L100.0500, L501.9520 #### [facility] [address] [place], [address] Globulin (S) [Mass/Vol] 3.1 g/dL Normal 2.2-4.2 [facility] Comment on above: Order Comment: Order Date: 07/02/25 Order Info: [id number] - CMP Order Info: [id number] - LIPID Order Info: [id number] - TSH Performed By: #### L 500.4100, L500.4050, L501.9985, L100.0500, L501.9520 #### [facility] [address] [place], [place], [address] Glucose [Mass/Vol] 77 mg/dL Normal 70-99 [facility] Comment on above: Order Comment: Order Date: 07/02/25 Order Info: 785- - CMP Order Info: - LIPID Order Info: [id number] - TSH Performed By: #### L 500.4100, L500.4050, L501.9985, L100.0500, L501.9520 #### [facility] [address] [place], [address] Potassium [Moles/Vol] 4.4 mmol/L Normal 3.3-5.1 [facility] Comment on above: Order Comment: Order Date: 07/02/25 Order Info: [id number] - CMP Order Info: [id number] - LIPID Order Info: 3 - TSH Performed By: #### L 500.4100, L500.4050, L501.9985, L100.0500, L501.9520 #### [facility] [address] [place], [address] Sodium [Moles/Vol] 139 mmol/L Normal 133-145 [facility] Comment on above: Order Comment: Order Date: 07/02/25 Order Info: [id number] - CMP Order Info: [id number] - LIPID Order Info: [id number] - TSH Performed By: #### L 500.4100, L500.4050, L501.9985, L100.0500, L501.9520 #### [facility] [address] [place], [address] T PROT 7.4 g/dL Normal 5.9-8.4 [facility] Comment on above: Order Comment: Order Date: 07/02/25 Order Info: 0786-1 - CMP Order Info: [id number] - LIPID Order Info: [id number] - TSH Performed By: #### L 500.4100, L500.4050, L501.9985, L100.0500, L501.9520 #### [facility] [address] [place], [address] Urea nitrogen [Mass/Vol] 9 mg/dL Normal 4-19 [facility] Comment on above: Order Comment: Order Date: 07/02/25 Order Info: [id number] - CMP Order Info: [id number] - LIPID Order Info: [id number] - TSH Performed By: #### L 500.4100, L500.4050, L501.9985, L100.0500, L501.9520 #### [facility] [address] [place], [place], [address] Erythrocyte distribution wid th ratioOrdered By: Jordan Benavides on 07-02-2025 Erythrocyte distribution width (RBC) [Ratio] 12.2 % 11.6-14.6 [facility] Erythrocyte distribution wid th standard deviationOrdered By: Jordan Benavides on 07-02-2025 Erythrocyte distribution width (RBC) [Ratio] 42.3 fl 35.1-43.9 [facility] [facility] Glomerular filtration rate ( GFR) estimation/1.73 sq m using serum, plasma, or whole bOrdered By: Jordan Benavides on 07-02-2025 GFR/1.73 sq M.predicted among non-blacks MDRD (S/P/Bld) [Vol rate/Area] 109 mL/min/{1.73_m2} >60 [facility] Comment on above: mL/min/1.73m2 CKD-EP I Creatinine Equation (2020) Hematocrit Auto (Bld) [Volum e fraction]Ordered By: Jordan Benavides on 07-02-2025 Hematocrit (Bld) [Volume fraction] 40.0 % 37-47 [facility] Hemoglobin A1con 07-02-2025 HbA1c (Bld) [Mass fraction] 5.5 % Normal <=5.6 [facility] Comment on above: Order Comment: Order Date: 07/02/25Order Info: [id number] - A1C Result Comment: Norm al < 5.7 % Prediabetic 5.7 - 6.4 % Diabetic >or= 6.5 % Please note range changes. Performed By: #### L 500.4100, L500.4050, L501.9985, L100.0500, L501.9520 ####[facility] [address] [place], [place], [id number] Hemoglobin A1c percentageOrd ered By: Jordan Benavides on 07-02-2025 HbA1c (Bld) [Mass fraction] 5.5 % <5.7 [facility] Comment on above: Normal < 5.7 % Predi abetic 5.7 - 6.4 % Diabetic >or= 6.5 % Please note range changes. Hemoglobin measurementOrdere d By: Jordan Benavides on 07-02-2025 Hemoglobin (Bld) [Mass/Vol] 13.9 g/dL 12.0-15.0 [facility] LDL calc ser/plasOrdered By: Jordan Benavides on 07-02-2025 Cholesterol in LDL [Mass/Vol] 104 mg/dL [facility] Comment on above: Ggellepons=803-115 m g/dL & Higher Vfbx=658 mg/dL or greaterFriedwald Equation for LDL-C Laboratory - Chemistry and C hemistry - challengeOrdered By: Jordan Benavides on 07-02-2025 AST [Catalytic activity/Vol] 19 U/L <32 [facility] Lipid Profileon 07-02-2025 CHOL:HDL 4.30 Normal [facility] Comment on above: Order Comment: Order Date: 07/02/25Order Info: [id number] - CMPOrder Info: [id number] - LIPIDOrder Info: [id number] - TSH Performed By: #### L 500.4100, L500.4050, L501.9985, L100.0500, L501.9520 ####[facility] [address] [place], [place], [id number] Cholesterol [Mass/Vol] 201 mg/dL Normal <=200 [facility] Comment on above: Order Comment: Order Date: 07/02/25Order Info: [id number] - CMPOrder Info: [id number] - LIPIDOrder Info: [id number] - TSH Result Comment: Chol esterol level, Desirable <200 mg/dL Borderline high cholesterol 200-239 mg/dL High cholesterol >=240 mg/dL Recommendations of the NCEP Adult Treatment Panel for the following risk-cutoff thresholds for the [place] population. Performed By: #### L 500.4100, L500.4050, L501.9985, L100.0500, L501.9520 ####[facility] [address] [place], [address] Cholesterol in HDL [Mass/Vol] 47 mg/dL Normal [facility] Comment on above: Order Comment: Order Date: 07/02/25Order Info: [id number] - CMPOrder Info: [id number] - LIPIDOrder Info: 3 - TSH Result Comment: Kayla onal Cholesterol Education Program (NCEP) guidelines: <40 mg/dL: Low HDL-cholesterol (major risk factor for CHD) >= 60 mg/dL: High HDL-cholesterol (negative risk factor for CHD) HDL-cholesterol is affected by a number of factors, e.g. smoking, exercise, hormones, sex and age. Performed By: #### L 500.4100, L500.4050, L501.9985, L100.0500, L501.9520 ####[facility] [address] [place], [address] Cholesterol in LDL [Mass/Vol] 104 mg/dL Normal [facility] Comment on above: Order Comment: Order Date: 07/02/25Order Info: [id number] - CMPOrder Info: [id number] - LIPIDOrder Info: [id number] - TSH Result Comment: Bord huwtop=247-328 mg/dL Higher Fddg=433 mg/dL or greater Friedwald Equation for LDL-C Performed By: #### L 500.4100, L500.4050, L501.9985, L100.0500, L501.9520 ####[facility] [address] [place], [address] Cholesterol in VLDL [Mass/Vol] 50 mg/dL High 5-40 [facility] Comment on above: Order Comment: Order Date: 07/02/25Order Info: [id number] - CMPOrder Info: [id number] - LIPIDOrder Info: [id number] - TSH Performed By: #### L 500.4100, L500.4050, L501.9985, L100.0500, L501.9520 ####[facility] [address] [place], [place], [address] Triglyceride [Mass/Vol] 252 mg/dL High [facility] Comment on above: Order Comment: Order Date: 07/02/25Order Info: [id number] - CMPOrder Info: [id number] - LIPIDOrder Info: [id number] - TSH Result Comment: The drugs N-Acetylcysteine and Metamizole may falsely depress this assay. Normal range: <150 mg/dL Borderline High: 150-199 mg/dL High: 200-499 mg/dL Very High: >500 mg/dL Performed By: #### L 500.4100, L500.4050, L501.9985, L100.0500, L501.9520 ####[facility] [address] [place], [place], [id number] MCV (mean corpuscular volume ) determinationOrdered By: Jordan Benavides on 07-02-2025 MCV (RBC) [Entitic vol] 94.6 fL 81-99 [facility] Mean corpuscular hemoglobin (MCH) determinationOrdered By: Jordan Benavides on 07-02-2025 MCH (RBC) [Entitic mass] 32.9 pg High 27.0-32.0 [facility] Mean corpuscular hemoglobin concentration (MCHC) determinationOrdered By: Jordan Benavides on 07-02-2025 MCHC (RBC) [Mass/Vol] 34.8 g/dL 32-36 [facility] Mean platelet volume determi nationOrdered By: Jordan Benavides on 07-02-2025 Platelet mean volume (Bld) [Entitic vol] 11.7 fL 6.2-12.0 [facility] Platelet countOrdered By: Radha Benavides on 07-02-2025 Platelets (Bld) [#/Vol] 221 10*3/uL 150-450 [facility] Potassium measurement (mass/ volume)Ordered By: Jordan Bneavides on 07-02-2025 Potassium (Unsp spec) [Mass/Vol] 4.4 mmol/L 3.3-5.1 [facility] RBC Auto (Bld) [#/Vol]Ordere d By: Jordan Benavides on 07-02-2025 RBC (Bld) [#/Vol] 4.23 10*6/uL 4.2-5.4 [facility] Screening total cholesterol/ high density lipoprotein (HDL) cholesterol ratioOrdered By: Jordan Benavides on 07-02-2025 Cholesterol.total/Cristal sterol in HDL [Mass ratio] 4.30 {ratio} [facility] Serum creatinine measurement (mass/volume)Ordered By: Jordan Benavides on 07-02-2025 Creatinine [Mass/Vol] 0.73 mg/dL 0.70-1.20 [facility] Serum globulin measurementOr dered By: Jordan Benavides on 07-02-2025 Globulin (S) [Mass/Vol] 3.1 g/dL 2.2-4.2 [facility] Serum glucose measurement (m ass/volume)Ordered By: Jordan Benavides on 07-02-2025 Glucose [Mass/Vol] 77 mg/dL 70-99 [facility] Serum or plasma alanine kaiser otransferase (ALT) measurementOrdered By: Jordan Benavides on 07-02-2025 ALT [Catalytic activity/Vol] 18 U/L <35 [facility] Serum or plasma albumin hi urement (mass/volume)Ordered By: Jordan Benavides on 07-02-2025 Albumin [Mass/Vol] 4.4 g/dL 3.5-5.0 [facility] Serum or plasma albumin/glob ulin mass ratioOrdered By: Jordan Benavides on 07-02-2025 Albumin/Globulin [Mass ratio] 1.4 {ratio} 0.9-2.4 [facility] Serum or plasma alkaline latonia sphatase measurementOrdered By: Jordan Benavides on 07-02-2025 ALP [Catalytic activity/Vol] 84 U/L 35-104 [facility] Serum or plasma calcium hi urement (mass/volume)Ordered By: Jordan Benavides on 07-02-2025 Calcium [Mass/Vol] 9.5 mg/dL 7.6-11.0 [facility] Serum or plasma cholesterol in HDL measurement (mass/volume)Ordered By: Jordan Benavides on 07-02-2025 Cholesterol in HDL [Mass/Vol] 47 mg/dL >40 [facility] Comment on above: National Cholesterol Education Program (NCEP) guidelines:<40 mg/dL: Low HDL-cholesterol (major risk factor for CHD)>= 60 mg/dL: High HDL-cholesterol (negative risk factor for CHD)HDL-cholesterol is affected by a number of factors, e.g. smoking, exercise, hormones, sex and age. Serum or plasma cholesterol measurement (mass/volume)Ordered By: Jordan Benavides on 07-02-2025 Cholesterol [Mass/Vol] 201 mg/dL <201 [facility] Comment on above: Cholesterol level, D esirable <200 mg/dLBorderline high cholesterol 200-239 mg/dLHigh cholesterol >=240 mg/dLRecommendations of the NCEP Adult Treatment Panel for the following risk-cutoff thresholds for the [place] population. Serum or plasma urea nitroge n measurement (mass/volume)Ordered By: Jordan Benavides on 07-02-2025 Urea nitrogen [Mass/Vol] 9 mg/dL 4-19 [facility] Sodium levelOrdered By: Alina Benavides on 07-02-2025 Sodium [Moles/Vol] 139 mmol/L 133-145 [facility] TSH DL <= 0.005 mIU/L QnOrde red By: Jordna Benavides on 07-02-2025 TSH Qn 1.010 uIU/mL 0.300-4.200 [facility] Thyroid Stim Hormone (TSH)on 07-02-2025 TSH 1.010 uIU/mL Normal 0.300-4.200 [facility] Comment on above: Order Comment: Order Date: 07/02/25Order Info: [id number] - CMPOrder Info: [id number] - LIPIDOrder Info: [id number] - TSH Performed By: #### L 500.4100, L500.4050, L501.9985, L100.0500, L501.9520 ####[facility] [address] [place], [place], [id number] Total proteinOrdered By: Daja Benavides on 07-02-2025 Protein [Mass/Vol] 7.4 g/dL 5.9-8.4 [facility] Triglycerides measurementOrd ered By: Jordan Benavides on 07-02-2025 Triglyceride [Mass/Vol] 252 mg/dL High <199 [facility] Comment on above: The drugs N-Acetylcy steine and Metamizole may falsely depress this assay. Normal range: <150 mg/dLBorderline High: 150-199 mg/dLHigh: 200-499 mg/dLVery High: >500 mg/dL Vitamin D,25 Hydroxyon 07-02 Vitamin D 25-OH 36.8 ng/mL Normal 30-100 [facility] Comment on above: Order Comment: Order Date: 07/02/25 Order Info: [id number] - CMP Order Info: [id number] - LIPID Order Info: [id number] - TSH Result Comment: Zaria min D Status Deficiency: <20 ng/mL (50nmol/L) Insufficiency: 20-30 ng/mL (50-75 nmol/L) Sufficiency: 30-100 ng/mL (75-250 nmol/L) Toxicity: >100 ng/mL (>250 nmol/L) Performed By: #### L 506.1001 #### [facility] [address] [place], [address] White blood cell (WBC) count Ordered By: Jordan Benavides on 07-02-2025 WBC (Bld) [#/Vol] 7.1 10*3/uL 4.4-11.0 [facility] 36on 06-12-2025 36 LM for return call. Normal [facility] 36on 05-11-2025 36 LM for return call. Please assist with scheduling her annual exam. Thank you Normal [facility] 36 ----- Message from Camelia Edwards sent at 04/03/2025 1:51 PM EDT ----- Regarding: appt Annual scheduled? Send letter Normal [facility] Progress Noteon 04-26-2025 Progress Note PPD read 0mm. Normal [facility] Progress Noteon 04-24-2025 Progress Note #2 TB skin test give n to left inner forearm. Normal [facility] Mumps Antibody,IgGon 025 MUMPS Ab, IgG 10.5 AU/mL Low Immune >10.9 [facility] Comment on above: Result Comment: A se cond sample should be collected and tested no less than 2-4 weeks. Negative <9.0 Equivocal 9.0 - 10.9 Positive >10.9 A positive result generally indicates past exposure to Mumps virus or previous vaccination. Performed By: #### L 3400.1750, L3100.3400, L509.4006 ####[facility] [address] [place], [address] [facility] EMP Rubeola Titeron 07-0 RUBEOLA Ab, IgG 84.6 AU/mL High Immune >16.4 [facility] Comment on above: Result Comment: Nega tive <13.5 Equivocal 13.5 - 16.4 Positive >16.4 Presence of antibodies to Rubeola is presumptive evidence of immunity except when acute infection is suspected. Performed at: [address] [id number] Maintenance Technician [address] Shift: Ricardo Pereira PhD, Phone: [phone] Performed By: #### L 3400.1750, L3100.3400, L509.4006 ####[facility] [address] [place], [address] L509.4006on 04-22-2025 Rubella IgG REAC Normal Nonreactive [facility] Comment on above: Result Comment: Anti body Result: Interpretation Non-Reactive: Non-Immune Reactive: Immune The following results were obtained with the Ele[employer]ys Rubella IgG assay. Results from assays of other manufacturers cannot be used interchangeably. Performed By: #### L 3400.1750, L3100.3400, L509.4006 ####[facility] [address] [place], [address] Serum measles virus IgG anti body assay (units/volume)Ordered By: [facility] on 04-22-2025 MeV IgG Qn (S) 84.6 AU/mL High Immune >16.4 [facility] Comment on above: Negative <13.5 Equiv ocal 13.5 - 16.4 Positive >16.4Presence of antibodies to Rubeola is presumptive evidenceof immunity except when acute infection is suspected.Performed at: - [facility] [address] [place], [place] [id number] Director: Ricardo Pereira PhD, Phone: [phone] Serum mumps virus IgG antibo dy assay (units/volume)Ordered By: [facility] on 04-22-2025 MuV IgG Qn (S) 10.5 AU/mL Low Immune >10.9 [facility] Comment on above: A second sample shou [...] returned to patient. Justine Sal APRN - [employer] [facility] 3604-03-2025 36 LM for return call. Please assist with scheduling her annual exam. Thanks [facility] 36 ----- Message from Camelia Edwards sent at 02/11/2025 11:53 AM EDT ----- Regarding: annual Annual/pap 02/25 [facility] 2903-29-2025 29 Addended by: RAMANDEEP DOLAN on: 03/29/2025 04:48 PM Modules accepted: Orders [facility] 3603-28-2025 36 Pt is requesting annual lab work be order before her visit in june of this year. [facility] 37on 01-28-2025 37 Start: Clobetasol Ointment- Apply [...] and call if such occurs. 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 female who presents for evaluation of rash. Patient has seen a vineyardist in the past. C/o-rash located on the [...] face, armpits, groin. 2. Rash Related Procedures [facility] Dermatology Orders Placed This Encounter Medications clobetasol (Temovate) 0.05 % ointment Sig: Apply to affected areas on the right hand BID x 2 weeks. Stop using when clear. Repeat as needed for flares. Do not use on face, armpits, groin. Dispense: 60 g Refill: 0 Follow up if symptoms worsen or fail to improve. Znia Echols PA-C 01/28/25 1:11 PM REFERRING MD: [id number] / [place] [address] [facility] Office Visiton 01-02-2025 Follow-up visit [id number] Catrachita Witt 1990 F Date Provider Department Center 01/02/2025 MARÍA BARLOW [facility] Family History Problem Relation Age of Onset [...] Alive Other Mother's Sister Alive Level of Service:14080 CT OFFICE/OUTPATIENT ESTABLISHED MOD MDM 30 MIN Reason for Visit and Comments: Sciatica [346] Rash [897370] - Right hand, has used doxy, keflex, and kenalog cream. Normal [facility] Progress Noteon 01-02-2025 Progress Note . [facility] [address] [facility] [address] Dept: [phone] Dept Visit type: Established patient Reason for [...] Mom High Blood (more content not included)... [facility] 36on 11-03-2024 36 Lvm on phone and sen t [employer] message that pt will need an appointment within 3 months. If pt calls, can schedule with Ramandeep Lau but will need a second appointment to est care with DR Keyes. [facility] DBT Breast - bilateral diagn osticon 02-21-2024 [facility] 1990 [id number] Exam Date/Time: 02/21/2024 07:57 Procedure: BI MAMMOGRAM DIAGNOSTIC TOMOSYNTHESIS BILATERAL Ordering Provider: LAU SHANNON Reason For Exam: new palpable mass left breast at 9 oclock 2 mm. COMPARISONS: There were no priors available for comparison. MAMMOGRAM: Image views: 2D CC and MLO views were acquired. 3D CC and MLO views were acquired. Markings on images: BB's = Nipples; skin lesions Open quechan = Palpable Line = Scar TISSUE DENSITY: [...] there is no evidence of axillary lymphadenopathy. [facility] Radha Castillo MD - 02/21/2024 Patient Name: ELANA WITT : 1990 [id number] Exam Date/Time: 02/21/2024 07:57 Procedure: BI MAMMOGRAM DIAGNOSTIC TOMOSYNTHESIS BILATERAL Ordering Provider: LAU SHANNON Reason For Exam: new palpable mass left breast at 9 oclock 2 mm. COMPARISONS: There were no priors available for comparison. MAMMOGRAM: Image views: 2D CC and MLO views were acquired. 3D CC and MLO views were acquired. Markings on images: BB's = Nipples; skin lesions Open quechan = Palpable Line = Scar TISSUE DENSITY: [...] Electronically Signed Date/Time: 02/21/2024 8:32 AM EDT [facility] Radiology Study observation (narrative) [facility] He alth No Panel Informationon 02-20 [...] MD Electronically Signed Date/Time: 02/21/2024 8:32 AM [facility] No Panel InformationOrdered By: Radha Castillo on 02-21-2024 [employer] Phone: US Breast - left limitedon 0 [...] images: BB's = Nipples; skin lesions Open quechan = Palpable Line = Scar TISSUE DENSITY: [...] there is no evidence of axillary lymphadenopathy. [facility] Radha Castillo MD - 02/21/2024 [...] images: BB's = Nipples; skin lesions Open quechan = Palpable Line = Scar TISSUE DENSITY: [...] Electronically Signed Date/Time: 02/21/2024 8:32 AM EDT [facility] Radiology Study observation (narrative) [facility] alth HCG ( test) Ql (U)O rdered By: Paola Newby on 01-23-2024 Beta HCG ( test) Ql (U) 0 [facility] Interpretation and review of laboratory results Normal [facility] NEGATIVE QC Pass [facility] Health POSITIVE QC Pass [facility] Preg Test, Ur Negative Negative [facility] Healt h [facility] Radiology Study observation (narrative) [facility] He alth AMB POC URINALYSIS DIP STICK AUTO W/O MICROon 11-26-2023 Bilirubin, UA Negative [facility], [facility] Moderate [facility] Glucose, UA Negative [facility] Health Interpretation and review of laboratory results Abnormal [facility] Ketones, UA (mg/dL) Negative Negative mg/dL [facility] Leukocytes, UA [facility] Nitrite, UA Negative [facility] pH, UA 5.5 [facility] Protein, UA 100 [facility] Spec Grav, UA 1.015 [facility] URINE TEST Ordered By: Justina Nieves on 11-26-2023 Interpretation and review of laboratory results Normal [facility] Preg Test, Ur Negative Negative [facility] Healt h No Panel Informationon 11-26 [facility] No Panel InformationOrdered By: Justina Nieves on 11-26-2023 Radiology Study observation (narrative) [facility] alth AMB POC COVID-19 COVon 10-12 SARS-CoV-2 (COVID-19) RNA CALOS+non-probe Ql (Nph) Negative Negative [facility] AMB POC STREP GO A DIRECT, D NA PROBEon 10-12-2023 POC Strep DNA Probe Negative Negative [facility] CBC panel Auto (Bld)on 10-11 Erythrocyte distribution width (RBC) [Ratio] 12.2 % 11.0 - 15.0 % [facility] Hematocrit (Bld) [Volume fraction] 40.6 % 35.0 - 45.0 % [facility] Hemoglobin (Bld) [Mass/Vol] 14.1 g/dL 11.7 - 15.5 g/dL [facility] MCH (RBC) [Entitic mass] 33.7 pg High 27.0 - 33.0 pg [facility] MCHC (RBC) [Mass/Vol] 34.7 g/dL 32.0 - 36.0 g/dL [facility] MCV (RBC) [Entitic vol] 97.1 fL 80.0 - 100.0 fL [facility] Platelet mean volume (Bld) [Entitic vol] 11.8 fL 7.5 - 12.5 fL [facility] Platelets (Bld) [#/Vol] 198 10*3/uL [facility] RBC (Bld) [#/Vol] 4.18 10*6/uL [facility] WBC (Bld) [#/Vol] 7.2 10*3/uL [facility] Comprehensive metabolic 1998 panelon 10-11-2023 Albumin [Mass/Vol] 4.6 g/dL 3.6 - 5.1 g/dL [facility] Albumin/Globulin [Mass ratio] 1.6 {ratio} [facility] ALP [Catalytic activity/Vol] 72 U/L 31 - 125 U/L [facility] ALT [Catalytic activity/Vol] 14 U/L 6 - 29 U/L [facility] AST [Catalytic activity/Vol] 14 U/L 10 - 30 U/L [facility] Bilirubin [Mass/Vol] 1.0 mg/dL 0.2 - 1 .2 mg/dL [facility] Calcium [Mass/Vol] 9.5 mg/dL 8.6 - 10. 2 mg/dL [facility] Chloride [Moles/Vol] 105 mmol/L 98 - 11 0 mmol/L [facility] CO2 [Moles/Vol] 25 mmol/L 20 - 32 mmol/L [facility] Creatinine [Mass/Vol] 0.77 mg/dL 0.50 - 0.97 mg/dL [facility] GFR/1.73 sq M.predicted among non-blacks MDRD (S/P/Bld) [Vol rate/Area] 104 mL/min/{1.73_m2} > OR = 60 mL/min/1.73m2 [facility] Globulin (S) [Mass/Vol] 2.9 g/dL [facility] Glucose [Mass/Vol] 74 mg/dL 65 - 99 mg/dL [facility] Comment on above: Fasting reference interval Potassium [Moles/Vol] 4.6 mmol/L 3.5 - 5.3 mmol/L [facility] Protein [Mass/Vol] 7.5 g/dL 6.1 - 8.1 g/dL [facility] Sodium [Moles/Vol] 138 mmol/L 135 - 146 mmol/L [facility] Urea nitrogen [Mass/Vol] 11 mg/dL 7 - 25 mg/dL [facility] Urea nitrogen/Creatinine [Mass ratio] SEE NOTE: [facility] Comment on above: Not Reported: BUN an d Creatinine are within reference range. Hemoglobin A1con 10-11-2023 HbA1c (Bld) [Mass fraction] 5.3 % [facility] Comment on above: For the purpose [...] diagnosis of diabetes in children. According to [place] Diabetes Association (ADA) guidelines, hemoglobin A1c <7.0% represents optimal control in non- diabetic patients. Different metrics may apply to specific patient populations. Standards of Medical Care in Diabetes(ADA). Lipid 1996 panelon 3 Cholesterol [Mass/Vol] 230 mg/dL High [facility] - 200 mg/dL [facility] Cholesterol in HDL [Mass/Vol] 52 mg/dL > OR = 50 [facility] Cholesterol in LDL [Mass/Vol] 145 mg/dL High mg/dL (calc) [facility] Comment on above: Reference range: <10 0 Desirable range <100 mg/dL for primary prevention; <70 mg/dL for patients with CHD or diabetic patients with > or = 2 CHD risk factors. LDL-C is now calculated using the Evelio-Gaby calculation, which is a validated novel method providing better accuracy than the Friedewald equation in the estimation of LDL-C. Evelio SS et al. YOMAIRA. 2013;310(19): 7424-4181 (http://[employer]/faq/WWA772) Cholesterol non HDL [Mass/Vol] 178 mg/dL High [facility] Comment on above: For patients with di abetes plus 1 major ASCVD risk factor, treating to a non-HDL-C goal of <100 mg/dL (LDL-C of <70 mg/dL) is considered a therapeutic option. Cholesterol.total/Cristal sterol in HDL [Mass ratio] 4.4 {ratio} [facility] Triglyceride [Mass/Vol] 189 mg/dL High [facility] - 150 mg/dL [facility] No Panel Informationon 10-11 Interpretation and review of laboratory results Abnormal [facility] TSHon 10-11-2023 TSH Qn 1.21 m[IU]/L mIU/L [facility] Comment on above: Reference Range > or = 20 Years 0.40-4.50 Ranges First trimester 0.26-2.66 Second trimester 0.55-2.73 Third trimester 0.43-2.91 Vitamin D Deficiency Screeni ng (Vit D 25)on 10-11-2023 25-hydroxyvitamin D3 [Mass/Vol] 11 ng/mL Low 30 - 100 ng/mL [facility] Comment on above: Vitamin D Status 25- [place] Vitamin D: Deficiency: <20 ng/mL Insufficiency: 20 - 29 ng/mL Optimal: > or = 30 ng/mL For 25-OH Vitamin D testing on patients on D2-supplementation and patients for whom quantitation of D2 and D3 fractions is required, the QuestAssureD(TM) 25-OH VIT D, (D2,D3), LC/MS/MS is recommended: order code 62600 (patients >2yrs). See Note 1 Note 1 For additional information, please refer to http://education.[employer]/faq/QZN365 (This link is being provided for informational/ educational purposes only.) AMB POC COVID-19 COVon 10-10 SARS-CoV-2 (COVID-19) RNA CALOS+non-probe Ql (Nph) Negative Negative [facility] AMB POC RAPID INFLUENZA DNA/ RNAOrdered By: Agnes Loza on 10-10-2023 Inflenza A Ag Negative [facility] h Influenza B Ag Negative [facility] XR Ankle - right 3 Viewson 0 11-05-2022 No acute osseous abnormality. Report Dictated on Electronically Signed By: Noel Herrera Electronically Signed Date/Time: 11/05/2022 11:16 AM EST [facility] Patient Name: ELANA WITT Exam Date/Time: 11/05/2022 11:04 Procedure: XR ANKLE 3+ VIEWS RIGHT Ordering Provider: HAYNES NATHAN Reason For Exam: RIGHT ANKLE: CLINICAL INDICATION: . TECHNIQUE: AP, Lat, Oblique COMPARISON: None. FINDINGS: There is no evidence for fracture or dislocation. The ankle mortise is intact. There is no soft tissue abnormality. [facility] Noel Herrera MD - 11/05/2022 Patient [...] Electronically Signed Date/Time: 11/05/2022 11:16 AM EST [facility] Radiology Study observation (narrative) Edwardo oconnell XR Ankle - right 3 ViewsOrde red By: Noel Herrera on 11-05-2022 [employer] Work Phone: HCG,Urine Qualon 07-20-2021 Beta HCG ( test) Ql (U) Negative Normal Negative [facility] Comment on above: Result Comment: Plea se note: Very dilute urine specimens, as indicated by a low specific gravity, may not contain financial sales representative levels of hCG. If is still suspected, a first morning urine specimen should be collected 48 hours later and tested. is the most common reason for HCG in urine, although choriocarcinoma, hydatidiform mole, and certain nontropho- blastic malignancies also result in detectable urinary HCG levels. Sensitivity = 20mIU/mL. Performed By: #### H CGUR #### [facility] [address] [place] [address] OPERATIVE REPORTOrdered By: 3m Scanning on 07-20-2021 [employer] Work Phone: [phone] , urine LABOrdered By: Davy Adilia on 07-20-2021 Beta HCG ( test) Ql (U) Negative Negative NA [facility] Phone: Comment on above: Please note: Very di lute urine specimens, as indicated by a low specific gravity, may not contain financial sales representative levels of hCG. If is still suspected, a first morning urine specimen should be collected 48 hours later and tested. is the most common reason for HCG in urine, although choriocarcinoma, hydatidiform mole, and certain nontropho- blastic malignancies also result in detectable urinary HCG levels. Sensitivity = 20mIU/mL. Test Performed by [facility], [address] , [place], [place] [address] [employer] Work Phone: [phone] [employer] Work Phone: XR CERVICAL SPINE (4-5 VIEWS )on 12-29-2020 Patient Name: ELANA WITT Diagnostic Radiology ACCESSION EXAM DATE/TIME PROCEDURE ORDERING PROVIDER [id number] 12/29/2020 15:23 EST CR Spine Cervical 4+ CHAGO, NORBERTO Views CPT code 12752 Reason For Exam (CR Spine Cervical 4+ [...] Time: 12/29/2020 3:28 [facility] Work Phone: Min, [facility] Incoming Radiology Results From [facility] - 12/29/2020 3:28 PM EST Patient Name: ELANA WITT Diagnostic Radiology ACCESSION EXAM DATE/TIME PROCEDURE ORDERING PROVIDER [id number] 12/29/2020 15:23 EST CR Spine Cervical 4+ CHAGO, NORBERTO Views CPT code 76345 Reason For Exam (CR Spine Cervical 4+ [...] PA/LAT Ordering Physician GABRIEL ROBLES Accession Number [id number] CPT4 Codes 19599 () Reason For Exam cough Report Clinical [...] JAMES Transcribed Date and Time: 12/08/2019 7:28 [facility] Work Phone: [facility], [facility] Incoming Radiology Results From [facility] - 12/08/2019 7:29 AM EST Patient Name: ELANA WITT ---Diagnostic Radiology--- Exam Date/Time 12/08/2019 07:16:39 EST Exam CR Chest PA/LAT Ordering Physician GABRIEL ROBLES Accession Number [id number] CPT4 Codes 90023 () Reason For Exam cough Report Clinical [...] JAMES Transcribed Date and Time: 12/08/2019 7:28 [facility] Work Phone: US Transvaginalon 02-04-2018 US Transvaginal Patient Name: ELANA GAMING Ultrasound Exam Date/Time 02/04/2018 17:19:27 EDT Exam US Transvaginal Ordering Physician HALEY DUPREE KRISTINA Accession Number [id number] CPT4 Codes 17054 () Reason For Exam Ectopic , unspecified [...] Time: 02/04/2018 5:39 pm Signed by: MD CONTRERAS, MALLIKA Nash Date and Time: 02/04/2018 5:21 [facility] ([facility] ELANA GAMING ([id number]) 1990 F UPADate Time Provider Department10/24/17 8:00 [...] mouth three times daily as needed.Letter MALIKA Malcolm[address], [address] [address]Plzft: [phone]: [phone] C Schummer 2017RE: Elana GamingTo Whom it May Concern:This is to certify that Elana Gaming was seen here for medical care.Please excuse them from work today.Thank you for your cooperation in this matter.Sincerely,Carrillo Tim PA-C(Electronically signed to expedite processing) Status:Closed by ALYSSA TIM on 10/24/17 Normal [facility] PROGRESSon 10-24-2017 PROGRESS HNO ID: [id number]: Alyssa Iglesias (Madhu) Donya Tim: (none)Author Type: [...] ofcare.Barriers to learning: none.Alyssa Tim PA-C Normal [facility] Vital Signs Date Time Vital Sign Value Performing Clinician Facility 08-17-2025 06:32-0400 Body temperature 98.4 [degF] Dr. Jonathan Lorenzana MD Work Phone: [facility] 08-17-2025 06:32-0400 Diastolic blood pressure 78 mm[Hg] Dr. Jonathan Lorenzana MD Work Phone: [facility] 08-17-2025 06:32-0400 Heart rate 88 /min Dr. Jonathan Lorenzana MD Work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 hypercholesterolemia Expected: 03/29/2025 (Approximate), Expires: 03/29/2026 [facility] Comment on above: Expected: 03/29/2025 (Approximate), Expi res: 03/29/2026 Start: 03-29-2025 End: 03-29-2026 Thyrotropin [Units/volume] in Serum or Plasma TSH Lab Routine PCOS (polycystic ovarian syndrome) Screening for thyroid disorder Expected: 03/29/2025 (Approximate), Expires: 03/29/2026 [facility] Work Phone: Comment on above: Expected: 03/29/2025 (Approximate), Expi res: 03/29/2026 Start: 02-25-2025 End: 02-25-2025 Patient encounter procedure 02/25/2025 1:00 PM EDT Office Visit [facility] Obstetrics and Gynecology [facility] [address] [place] [phone] Michelle Campos MD [address] [place] [address] [address] [place], [place] [phone] [facility] Obstetrics [facility] Gynecology [facility] Start: 01-28-2025 End: 01-28-2025 Patient encounter procedure 01/28/2025 8:00 AM EDT Office Visit [facility] Obstetrics and Gynecology [facility] [address] [place] [phone] Michelle Campos MD [address] [place] [address] [address] [place] [address] [facility] Obstetrics [facility] Gynecology [facility] Start: 11-26-2024 End: 11-26-2024 Patient encounter procedure [facility] Medical [facility] Obstetrics & Gynecology Start: 10-10-2024 Diabetes mellitus screening Diabetes Screening [facility] Start: 07-18-2024 Depression Monitoring Depression Monitoring [facility] Start: 07-18-2024 Depresssion Monitoring Depresssion Monitoring [facility] Start: 06-22-2024 COVID-19 Vaccine ( season) COVID-19 Vaccine () [facility] Start: 06-22-2024 Influenza vaccination Influenza Vaccine (#1) [facility] Start: 06-19-2024 End: 06-19-2024 Patient encounter procedure 06/19/2024 10:50 AM EDT Office Visit [facility] Internal Medicine [address] [place] [phone] María Keyes MD [address] [place] [address] [facility] Medicine Start: 05-21-2024 Depresssion Monitoring Depresssion Monitoring [facility] Start: 02-21-2024 End: 02-21-2024 Patient encounter procedure 02/21/2024 7:30 AM EDT Appointment [facility] [address] [place] [phone] [facility] Start: 02-21-2024 Subsequent hospital visit by physician 02/21/2024 7:30 AM EDT Hospital Encounter [facility] [address] [place] [phone] [facility] Start: 02-11-2024 End: 04-12-2025 US Breast - left limited Left breast US limited Imaging Routine Mass of upper inner quadrant of left breast Expected: 02/11/2024, Expires: 04/12/2025 [facility] Work Phone: Comment on above: Expected: 02/11/2024, Expires: Start: 01-23-2024 End: 01-23-2024 Patient encounter procedure 01/23/2024 10:45 AM EDT Procedure Visit [facility] Obstetrics & Gynecology [address] [place] [phone] Michelle Campos MD [address] [place] [address] [address] [place], [place] [phone] [facility] Obstetrics & Gynecology Start: 01-22-2024 End: 01-21-2025 hCG, quantitative hCG, quantitative Lab Routine Missed period Expected: 01/22/2024 (Approximate), Expires: 01/21/2025 [facility] Work Phone: Comment on above: Expected: 01/22/2024 (Approximate), Expi res: 01/21/2025 Start: 01-16-2024 End: 03-17-2025 MG Breast - bilateral Diagnostic Bilateral diagnostic mammogram Imaging Routine Mass of upper inner quadrant of left breast Expected: 01/16/2024, Expires: 03/17/2025 [facility] Work Phone: Comment on above: Expected: 01/16/2024, Expires: Start: 01-04-2024 COVID-19 Vaccine (3 - Booster for Pfizer series) COVID-19 Vaccine (3 - Booster for Pfizer series) [facility] Comment on above: Postponed from 09/06/2021 (Patient Refus ed) Start: 01-04-2024 COVID-19 Vaccine (3 - Pfizer series) COVID-19 Vaccine (3 - Pfizer series) [facility] Comment on above: Postponed from 09/06/2021 (Patient Refus ed) Start: 01-04-2024 Hepatitis C screening Hepatitis C Screening [facility] Comment on above: Postponed from 2007 (Patient Refus ed) Start: 01-04-2024 HIV screening HIV Screening [facility] Comment on above: Postponed from 1989 (Patient Refus ed) Start: 01-02-2024 End: 01-02-2024 Patient encounter procedure 01/02/2024 8:40 AM EDT Office Visit [facility] Internal Medicine [address] [place] [phone] Ramandeep Lau, BANKING CENTER MANAGER - [employer] [address] [place] [address] [facility] Medicine Start: 12-26-2023 End: 12-26-2023 Patient encounter procedure 12/26/2023 10:45 AM EST Procedure Visit [facility] Obstetrics & Gynecology [address] [place] [place] [address] Michelle Campos MD [address] [place] [address] [address] [place] [phone] [facility] Obstetrics & Gynecology Start: 11-28-2023 End: 11-28-2023 Patient encounter procedure 11/28/2023 8:45 AM EST Office Visit [facility] Obstetrics & Gynecology [address] [place] [address] Michelle Campos MD [address] [facility] [address] [place] [phone] [facility] Obstetrics & Gynecology Start: 11-21-2023 End: 10-12-2024 25-hydroxyvitamin D3 [Mass/volume] in Serum or Plasma Vitamin D Deficiency Screening (Vit D 25) Lab Routine Vitamin D deficiency Expected: 11/21/2023 (Approximate), Expires: 10/12/2024 [facility] Work Phone: Comment on above: Expected: 11/21/2023 (Approximate), Expi res: 10/12/2024 Start: 11-21-2023 End: 11-21-2023 Patient encounter procedure 11/21/2023 8:20 AM EST Office Visit [facility] Internal Medicine [address] [place] [phone] Raamndeep Lau, BANKING CENTER MANAGER - [employer] [address] [place], [place] [phone] [facility] Medicine Start: 10-31-2023 End: 10-31-2023 Patient encounter procedure 10/31/2023 1:45 PM EST Office Visit [facility] Obstetrics & Gynecology [address] [place] [address] Michelle Campos MD [address] [place] [address] [address] [place] [address] [facility] Obstetrics & Gynecology Start: 10-10-2023 End: 10-10-2023 Patient encounter procedure 10/10/2023 8:00 AM EST Office Visit [facility] Internal Medicine [address] [place] [phone] Ramandeep Lau, BANKING CENTER MANAGER - [employer] [address] [place] [address] [facility] Start: 08-17-2023 Screening for malignant neoplasm of cervix [facility] Start: 08-02-2023 Depresssion Monitoring Depresssion Monitoring [facility] Start: 06-22-2023 COVID-19 Vaccine () COVID-19 Vaccine () [facility] Start: 06-22-2023 Influenza vaccination Influenza Vaccine (#1) [facility] Start: 01-31-2023 End: 01-31-2023 Patient encounter procedure 01/31/2023 Office Visit Family Medicine Tho Kenney MD [address] [facility] [address] [place] [address] [facility] Start: 01-03-2023 End: 01-04-2024 Hemoglobin A1c/Hemoglobin.total in Blood Hemoglobin A1c Lab Routine Screening for diabetes mellitus Physical exam Expected: 01/03/2023 (Approximate), Expires: 01/04/2024 [facility] Work Phone: Comment on above: Expected: 01/03/2023 (Approximate), Expi res: 01/04/2024 Start: 01-03-2023 End: 01-04-2024 Lipid 1996 panel - Serum or Plasma Lipid panel Lab Routine Physical exam Hypercholesteremia Expected: 01/03/2023 (Approximate), Expires: 01/04/2024 [facility] Comment on above: Expected: 01/03/2023 (Approximate), Expi res: 01/04/2024 Start: 01-03-2023 End: 01-04-2024 Thyrotropin [Units/volume] in Serum or Plasma TSH Lab Routine LELE (generalized anxiety disorder) Moderate episode of recurrent major depressive disorder (CMS/HCC) Expected: 01/03/2023 (Approximate), Expires: 01/04/2024 [facility] Comment on above: Expected: 01/03/2023 (Approximate), Expi res: 01/04/2024 Start: 07-07-2022 End: 07-07-2022 Patient encounter procedure [facility] Start: 06-21-2022 Depression Screen Depression Screen [facility] Start: 02-03-2022 Diabetes mellitus screening Diabetes Screening [facility] Start: 12-12-2021 COVID-19 Vaccine (3 - Booster for Pfizer series) COVID-19 Vaccine (3 - Booster for Pfizer series) [facility] Start: 11-27-2021 Cervical cancer screen Cervical cancer screen [facility] Work Phone: Start: 09-06-2021 COVID-19 Vaccine (3 - Booster for Pfizer series) COVID-19 Vaccine (3 - Booster for Pfizer series) [facility] Start: 08-29-2021 End: 08-29-2021 Patient encounter procedure 08/29/2021 Office Visit Obstetrics and Gynecology Noel Callahan MD [address] [place] [address], [address] [place], [place] [phone] [facility] COMPUTER ENGINEERING PROFESSOR Start: 08-29-2021 End: 08-29-2021 Office Visit 08/29/2021 Office Visit Obstetrics and Gynecology Noel Callahan MD [address] [place] [address], [address] [place], [place] [phone] [facility] COMPUTER ENGINEERING PROFESSOR Start: 08-02-2021 End: 08-02-2021 Patient encounter procedure 08/02/2021 Office Visit Orthopedic Surgery Remedios Caro PA-C [address] [place] [phone] [facility] Orthopedics and Sports Medicine [facility] Start: 07-20-2021 End: 07-20-2021 Patient encounter procedure 07/20/2021 Appointment General Surgery Davy Pat MD [address] [facility] [address] [place], [place] [address] [facility] Start: 06-22-2021 Influenza vaccination Flu vaccine (#1) [facility] Work Phone: Start: 02-03-2021 End: 02-03-2021 Office Visit 02/03/2021 Office Visit Endocrinology Miguel Delvalle DO [address] [place], [place] [phone] [facility] Start: 08-18-2020 Screening for malignant neoplasm of cervix Cervical cancer screen [facility] Work Phone: Start: 06-22-2020 Influenza vaccination Flu vaccine (#1) [facility] Work Phone: Start: 01-22-2020 End: 01-22-2020 Office Visit 01/22/2020 Office Visit Family Medicine Melvina Campos MD [address], [address] [place], [place] [phone] [facility] Family Medicine Start: 12-22-2019 End: 12-22-2019 Office Visit 12/22/2019 Office Visit Obstetrics and Gynecology Noel Callahan MD [address], [address] [place], [place] [phone] [facility] COMPUTER ENGINEERING PROFESSOR Start: 2019 Screening for malignant neoplasm of cervix [facility] Start: 06-22-2019 Influenza vaccination Flu vaccine (#1) [facility] Work Phone: Start: 2008 DTaP/Tdap/Td vaccine (1 - Tdap) DTaP/Tdap/Td vaccine (1 - Tdap) [facility] Start: 2008 DTaP/Tdap/Td Vaccines (1 - Tdap) DTaP/Tdap/Td Vaccines (1 - Tdap) [facility] Start: 2007 Hepatitis C screening Hepatitis C Screening [facility] Start: 2004 HIV screen HIV screen [facility] Work Phone: Start: 2004 HIV screening HIV screen [facility] Start: 2000 DTaP/Tdap/Td vaccine (1 - Tdap) DTaP/Tdap/Td vaccine (1 - Tdap) [facility] Work Phone: Start: 1990 MMR Vaccines (1 of 1 - Standard series) MMR Vaccines (1 of 1 - Standard series) [facility] Start: 1990 Varicella vaccination Varicella Vaccines (1 of 2 - 2-dose childhood series) [facility] Start: 1990 Varicella vaccine (1 of 2 - 2-dose childhood series) Varicella vaccine (1 of 2 - 2-dose childhood series) [facility] Start: 1989 Hepatitis B Vaccines (1 of 3 - 3-dose series) Hepatitis B Vaccines (1 of 3 - 3-dose series) [facility] Start: 1989 Hepatitis C screening Hepatitis C screen [facility] Start: 1989 HIV screening HIV Screening [facility] Bacteria identified in Urine by Culture Urine culture Microbiology Routine Cystitis with hematuria Ordered: 11/26/2023 [facility] [employer] Work Phone: Comment on above: Ordered: 11/26/2023 [facility] Work Phone: Comment on above: As Needed until discontinued starting Cytology Cervical or vaginal smear or scraping study Pap Smear Pathology and Cytology Routine Screening for cervical cancer Ordered: 10/31/2023 [facility] [employer] Work Phone: Comment on above: Ordered: 10/31/2023 End: 07-20-2021 Intermittent pulse oximetry Pulse Oximetry Spot Check Respiratory Care Routine One Time for 1 Occurrences starting 07/20/2021 until 07/20/2021 [employer] Work Phone: Comment on above: One Time for 1 Occurrences starting 06/23 until 07/20/2021 Nasal Cannula Oxygen Nasal Cannu la Oxygen Respiratory Care Routine As Needed until discontinued starting 07/20/2021 [employer] Work Phone: Comment on above: As Needed until discontinued starting Nonrebreather mask oxygen Nonrebreather mask oxygen Respiratory Care Routine As Needed until discontinued starting 07/20/2021 [employer] Work Phone: Comment on above: As Needed until discontinued starting Oxygen therapy [Minimum Data Set] [employer] Work Phone: Comment on above: As Needed until discontinued starting Daily until disconti nued starting 07/20/2021 Patient Education ED Body Fluid Exposure Not ... ED Hypertension, To Be Confirmed [facility] Work Phone: Spirometry panel Incentive mitchel metry Respiratory Care Routine Q1H PRN until discontinued starting 07/20/2021 [employer] Phone: Comment on above: Q1H PRN until discontinued starting 06/23 SURESWAB(R) ADVANCED VAGINITIS PLUS, TMA ([facility]) Sureswab(R) Advanced Vaginitis Plus, TMA ([facility]) Lab Routine Screen for STD (sexually transmitted disease) [facility] Comment on above: Ordered: 10/31/2023 Tissue exam Tissue exam Path ology and Cytology Routine HPV in female Or[facility]: [facility]/23/2024 [facility] Work Phone: Comment on above: Ordered: 01/23/2024 Trichomonas vaginali s DNA probe Trichomonas vaginalis DNA probe Lab Routine Trichomonas infection Ordered: 11/28/2023 [facility] Work Phone: Comment on above: Ordered: 11/28/2023 Immunizations Immunization Date Immunization Notes Care Provider Kayode youssef 04-24-2025 tuberculin skin test ; purified protein derivative solution, intradermal Marlene Mead APRN - [employer] Work Phone: [facility] [employer] 04-22-2025 tetanus toxoid, reduced diphtheria toxoid, and acellular pertussis vaccine, adsorbed Health Assessment [facility] 04-12-2025 tuberculin skin test ; purified protein derivative solution, intradermal Marlene Mead BANKING CENTER MANAGER - [employer] Work Phone: [facility] 08-27-2023 influenza, injectabl e, quadrivalent, contains preservative Tierney Law LASER CUTTER Work Phone: [facility] 08-27-2023 influenza virus vaccine, unspecified formulation Ramandeep Khadijahfransisco BANKING CENTER MANAGER - [employer] Work Phone: [facility] 08-11-2022 influenza, injectabl e, quadrivalent, preservative free Tho Kenney MD Work Phone: [facility] 08-11-2022 influenza virus vaccine, unspecified formulation Tho Keneny MD Work Phone: [facility] 07-12-2021 Pfizer SARS-CoV-2 Vaccination Tho Kenney MD Work Phone: [facility] 06-21-2021 Pfizer SARS-CoV-2 Vaccination Tho Kenney MD Work Phone: [facility] 08-12-2020 varicella virus vaccine Tierney Law LASER CUTTER Work Phone: [facility] 06-24-2020 measles, mumps and rubella virus vaccine Tierney Law LASER CUTTER Work Phone: [facility] 06-24-2020 varicella virus vaccine Tierney Law LASER CUTTER Work Phone: [facility] Payers Date Payer Category Payer Unknown [id number] 2025 Unknown [id number] 2025 Unknown [id number] 2025 Self-pay 2022 [facility] Care - [employer] [id number] 2022 Unknown 2020 Unknown [id number] 2018 Unknown BCBS BCBS OUT OF STATE xxxxxxxxxxxxxxx 2018-Present [address] [place] [address] xxxxxxxxxxxxxxx [id number] Unknown [id number] Unknown [id number] Unknown [id number] Unknown [id number] Unknown [id number] Unknown [id number] Social History Date Type Detail Facility Start: 12-08-2019 End: 08-11-2025 Tobacco smoking status NHIS Never smoker [employer] Work Phone: Start: 12-08-2019 End: 01-02-2025 Alcohol intake Current drinker of alcohol (finding) [employer] Work Phone: Start: 07-02-2017 Alcohol Comment rarely [employer] Work Phone: Start: 1990 Sex Assigned At Not on file S [employer] Work Phone: Start: 08-17-2020 End: 01-03-2023 Tobacco use and exposure Never used [employer] Work Phone: Start: 08-17-2020 End: 06-21-2021 History SDOH Alcohol Frequency 2 [employer] Work Phone: Start: 10-26-2022 End: 01-03-2023 Exposure to SARS-CoV-2 (event) Not sure [employer] Work Phone: Start: 06-21-2021 History SDOH Alcohol Std Drinks 1 [employer] Work Phone: Start: 06-21-2021 History SDOH Social Connections Phone 5 [facility] Work Phone: Start: 06-21-2021 History SDOH Social Connections Living 3 [facility] Work Phone: Start: 06-21-2021 History SDOH Physica l Activity DPW 6 [employer] Work Phone: Start: 06-21-2021 History SDOH Physica l Activity [facility] Work Phone: Start: 1990 Sex Assigned At Female S [facility] Start: 08-01-2023 End: 01-02-2025 History of Social function [facility] Start: 08-01-2023 End: 01-02-2025 Tobacco use panel [facility] Adolescent depressio n screening assessment 12 [facility] Start: 08-10-2022 Gender identity Identifies as female gender (finding) [facility] Start: 08-10-2022 Sexual orientation Heterosexual (fin ding) [facility] Has the [employer], [employer], or [employer] threatened to shut off services in your home in past 12Mo No [facility] Are you now , , , , never or living with a partner? [facility] How often to you hav e a drink containing alcohol? Monthly or less [facility] How many standard drinks containing alcohol do you have on a typical day? 1 or 2 [facility] How often do you hav e 6 or more drinks on 1 occasion? Never [facility] Do you feel stress - tense, restless, nervous, or anxious, or unable to sleep at night because your mind is troubled all the time - these days [OSQ] Only a little [facility] (I/We) worried wheth er (my/our) food would run out before (I/we) got money to buy more. Never true [facility] Start: 05-22-2022 Sex Female (finding) [facility] Are you now , , , , never or living with a partner? [facility] Tobacco smoking stat us NHIS Unknown if ever smoked [facility] Work Phone: NEGATED: Highlighted rowStart: JORGE History of tobacco use Passive smoker [facility] Mental Status Date Assessment Result Facility 08-11-2025 Cognitive function Level Of Consciousness Awake [facility] Work Phone: Clinical Notes 07-14-2021 to 08-20-2025 [...] original. LM for return call. Letter mailed [facility] 08-20-2025 Miscellaneous Notes Formattin g of this note might be different from the original. LM for return call. Letter mailed LM for return call. LM for return call. Please assist with scheduling her annual exam. Thank you ----- Message from Camelia Edwards sent at 04/03/2025 1:51 PM EDT ----- Regarding: appt Annual scheduled? Send letter documented in this encounter [facility] 08-11-2025 Discharge summary [facility] 06-12-2025 Telephone encounter Note LM for return call. [facility] 06-12-2025 Miscellaneous Notes LM for return call. LM for return call. Please assist with scheduling her annual exam. Thank you ----- Message from Camelia Edwards sent at 04/03/2025 1:51 PM EDT ----- Regarding: appt Annual scheduled? Send letter documented in this encounter [facility] 05-11-2025 Telephone encounter Note LM for return call. Please assist with scheduling her annual exam. Thank you [facility] 05-11-2025 Telephone encounter Note ----- Message from Camelia Edwards sent at 04/03/2025 1:51 PM EDT ----- Regarding: appt Annual scheduled? Send letter [facility] 04-26-2025 History of Presen t illness Narrative PPD read 0mm. documented in this encounter [facility] 04-14-2025 History of Presen t illness Narrative TB test read is negative on right forearm. 0 mm induration. No skin reaction noted. Form was filled out and returned to patient. JULIO CESAR Tee CNP documented in this encounter [facility] 03-29-2025 Note Addended by: RAMANDEEP DOLAN on: 03/29/2025 04:48 PM Modules accepted: Orders [facility] 03-29-2025 Note Addended by: RAMANDEEP DOLAN on: 03/29/2025 04:48 PM Modules accepted: Orders [facility] 03-29-2025 Miscellaneous Notes Addended by: RAMANDEEP LAU on: 03/29/2025 04:48 PM Modules accepted: Orders Pt is requesting annual lab work be order before her visit in june of this year. documented in this encounter [facility] 03-28-2025 Telephone encounter Note Pt is requesting annual lab work be order before her visit in june of this . [facility] 01-28-2025 History of Presen t illness Narrative DATE OF SERVICE: 01/28/2025 PATIENT NAME: Elana Witt : 1990 AGE: 34 y.o. 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 female who presents for evaluation of rash. Patient has seen a vineyardist in the past. C/o-rash located on the [...] face, armpits, groin. 2. Rash Related Procedures [facility] Derm[facility]ology Orders Placed This Encounter Medications clobetasol (Temovate) 0.05 % ointment Sig: Apply to affected areas on the right hand BID x 2 weeks. Stop using when clear. Repeat as needed for flares. Do not use on face, armpits, groin. Dispense: 60 g Refill: 0 Follow up if symptoms worsen or fail to improve. Zina Echols PA-C 01/28/25 1:11 PM REFERRING MD: [id number] [facility] [id number] documented in this encounter [facility] 01-28-2025 Instructions Eleni Nunn LPN - 01/28/2025 [...] if such occurs. documented in this encounter [facility] 01-02-2025 History of Presen t illness Narrative Images from the original note were not included. . [place] [address] [facility] [address] Dept: [phone] Dept Visit type: Established patient Reason for [...] Grandmother Grandma on Mom's side gallbladder Other (81929) Maternal Grandfather Dementia Other (65633) Paternal Grandmother Grandmother on Father's side glaucoma, URI Depression Paternal Grandmother Grandmother on Father's side Diabetes Paternal Grandmother Grandmother on Father's side Other (43199) Paternal Grandfather COPD Diabetes Father's Sister Aunt [...] María Keyes MD documented in this encounter [facility] 11-03-2024 Telephone encounter Note Lvm on phone and sent mychart message that pt will need an appointment within 3 months. If pt calls, can schedule with Ramandeep Lau but will need a second appointment to est care with DR Keyes. [facility] 11-03-2024 Miscellaneous Notes Lvm on phone and sent mychart message that pt will need an appointment within 3 months. If pt calls, can schedule with Ramandeep Lau but will need a second appointment to est care with DR Keyes. documented in this encounter [facility] 03-31-2024 Telephone encounter Note Tried to call patient and sent MyChart message. This is fifth attempt. [facility] 03-31-2024 Miscellaneous Notes Tried to call patient and sent MyChart message. This is fifth attempt. Left message for patient to call back if still interested in scheduling surgery with Dr. Michelle Campos. Previously have sent three MyChart messages asking if patient was interested in scheduling her surgery. documented in this encounter [facility] 03-04-2024 Telephone encounter Note Left message for patient to call back if still interested in scheduling surgery with Dr. Michelle Campos. Previously have sent three MyChart messages asking if patient was interested in scheduling her surgery. [facility] 01-23-2024 History of Presen t illness Narrative [...] PM (Electronically Signed) documented in this encounter [facility] 01-19-2024 Evaluation + Plan note Associated Problem(s): Mass of upper inner quadrant of left breast New, small 2mm mass, will send for diagnostic mammogram [facility] 01-19-2024 Miscellaneous Notes Associated Problem(s): Mass of [...] Score: 1 1 documented in this encounter [facility] 01-19-2024 Evaluation + Plan note Associated Problem(s): Moderate episode of recurrent major depressive disorder (HCC) Chronic, controlled, ccm wellbutrin, prozac [facility] 01-19-2024 Evaluation + Plan note Associated Problem(s): Generalized anxiety disorder Chronic, improved ccm wellbutrin, prozac Last 3 LELE-7 Scores 01/16/2024 1100 11/21/2023 0900 LELE-7 Total Score: 0 4 Last 3 PHQ-2 Scores 01/16/2024 1101 11/21/2023 0922 Patient Health Questionnaire-2 Score: 0 0 Last 3 PHQ-9 Scores 01/16/2024 1101 11/21/2023 09 Patient Health Questionnaire-9 Score: 1 1 [facility] 01-16-2024 History of Presen t illness Narrative Images from the original note were not included. [facility] [address] [facility] [address] Dept: [phone] Dept Loc: [phone] Visit type: Established patient Reason for Visit: [...] Problem Relation Name Age of Onset Other (61030) Paternal Grandmother Grandmother on Father's side glaucoma, URI Depression Paternal Grandmother Grandmother on Father's side Diabetes Paternal Grandmother Grandmother on Father's side Other (93689) Maternal Grandfather Dementia Diabetes Mother Mom Heart disease Mother Mom Mental illness Mother Mom Other (29539) Paternal Grandfather COPD No Known Problems Other [...] Imaging/Testing: JULIO CESAR Caldwell CNP Dictated using [employer] Version 2.4 Document has been proof read for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
== END | disposition home or self-care (01) ==
LOC: OPUS 10:53
PROVIDERS: Referring Provider Nurse Practitioner Women's Health; Visit Provider Nurse Practitioner Women's Health
DX: R92.30 Dense breasts, unspecified (principal)
CPT/HCPCS: 76642

== ENCOUNTER → 2025-10-19 | Outpatient (CLI) | payer OTHER, SELFPAY ==
[2025-10-19 19:18] LABS: AST(SGOT) 17 U/L (<=31); Alanine Aminotransfer ALT/SGPT 16 U/L (<=34); Albumin, Serum 4.5 g/dL (3.5-5.0); Alkaline Phosphatase 83 U/L (35-104); Anion Gap 11 (7-18); BUN 10 mg/dL (4-19); BUN/Creat Ratio 12.1 RATIO (10-20); Calcium,Total 9.6 mg/dL (7.6-11.0); Carbon Dioxide 26.9 mmol/L (20.0-29.0); Chloride 103 mmol/L (96-106); Globulin 3.0 g/dL (2.2-4.2); Glucose 86 mg/dL (70-99); Potassium 4.3 mmol/L (3.5-5.1)
== END | disposition home or self-care (01) ==
LOC: MTLAB 16:14
PROVIDERS: Referring Provider Nurse Practitioner Women's Health; Visit Provider Nurse Practitioner Women's Health
DX: E28.2 Polycystic ovarian syndrome (principal)
CPT/HCPCS: 36415; 80053